=== PATIENT | male | born 1955 | race Caucasian/White ===

== ENCOUNTER 2016-04-12 12:44 | Inpatient (IN) | payer OTHER, MEDICARE ==
[~2016-04-12] VITALS: Ht 162.6 cm; Wt 65.8 kg
[~2016-04-12 12:44] MED LIST: ATORVASTATIN CA20 MG PO; CARBAMAZEP100 MG/5 M PO; CENTRUM 240 ML240 ML PO; CIPRO 500MG TA500 MG PO; CLONAZEPAM0.5 MG PO; DULCOLAX10 MG PR; EFFEXOR-XR75 MG PO; FOSAMAX 70MG70 MG PO; GEMFIBROZIL600 MG PO; GEODON 80 MG CA80 MG PO; HYDROCHLOROTHIA25 MG PO; KLONOPIN 1MG TAB1 MG PO; KLONOPIN0.5 MG PO; LACTAID3000 U PO; LOPID 600 MG T600 MG PO; LOPRESSOR 25MG25 MG PO; LUBRIDERM 480ML16 OZ TOP; MEGESTROL PO; MILK OF MAGNESI30 ML PO; MIRALAX17 GM PO; NEPRO PO; NORVASC 10MG10 MG PO; OMEPRAZOLE40 MG PO; VENLAFAXINE HYD75 MG PO; VITAMIN D31 LIQ PO
--- NOTE | 2016-04-12 13:31 | ED MVC/FALL/TRAUMA COMPLAINT ---
History of Present Illness General Chief Complaint: General Adult Stated Complaint: FALLS,LOW BP Source: old records Exam Limitations: clinical condition Vital Signs & Intake/Output Vital Signs & Intake/Output Vital Signs Date Time Temp Pulse Resp B/P Pulse O2 O2 Flow FiO2 Ox Delivery Rate 04/14 1624 98.7 82 16 155/77 100 Room Air 04/14 1421 83 130/72 04/14 1031 83 158/82 04/14 0805 97.5 83 20 158/82 100 Room Air 04/14 0039 97.5 67 20 120/60 98 Room Air ED Intake and Output 04/14 0000 04/13 1200 Intake Total 880 700 Output Total 1250 400 Balance -370 300 Intake, IV 400 600 Intake, Oral 480 100 Number 3 Bowel Movements Output, Urine 1250 400 Allergies Coded Allergies: lactose (Mild, VOMITING 05/29/15) phenytoin (UNKNOWN 05/29/15) Reconcile Medications Alendronate Sodium (Fosamax) 70 MG TABLET 1 TAB PO QFRI OSTEOPOROSIS ( Reported) in the morning, at least 30 minutes before the first food, beverage, or medication of the day Amlodipine (Norvasc 10MG) 10 MG TAB 1 TAB PO DAILY HYPERTENSION (Reported) HOLD FOR BP <90/60 Atorvastatin Calcium (Lipitor) 20 MG TAB 1 TAB PO AT BEDTIME CHOLESTEROL ( Reported) Bisacodyl (Dulcolax) 10 MG SUP 1 SUPP AL M W [place] CONSTIPATION (Reported) Carbamazepine 100 MG/5 ML KIMBERLY 20 ML PO BID BEHAVIORAL DISTURBANCES (Reported) CHOLECALCIFEROL (VITAMIN D3) (Vitamin D3) 1 LIQ LIQ 6.25 ML PO MONTHLY VITAMIN D DEFECIENCY (Reported) Clonazepam (Klonopin 1MG Tab) 1 MG TAB 1 TAB PO DAILY BEHAVIOR (Reported) Clonazepam (Klonopin) 0.5 MG TAB 3 TAB PO AT BEDTIME BEHAVIOR (Reported) Esomeprazole (Nexium) 40 MG CAPSULE.DR 1 CAP PO DAILY GI (Reported) Gemfibrozil (Lopid 600 MG Tab) 600 MG TAB 1 TAB PO BID CHOLESTEROL (Reported) Lactase (Lactaid) 3,000 U TAB 1 TAB PO DAILY PRN LACTOSE INTOLERANCE ( Reported) TO BE GIVEN WHEN THE PATIENT IS ABOUT TO HAVE DAIRY PRODUCTS Losartan/Hydrochlorothiazide (Hyzaar 50-12.5 Tablet) 50 MG-12.5 MG TABLET 1 TAB PO DAILY HEART (Reported) Magnesium Hydroxide (Milk Of Magnesia 30ML) 30 ML UDC 30 ML PO 3RD DAY CONSTIPATION (Reported) TO BE GIVEN ON THE 3 RD DAY OF NO BOWEL MOVEMENT Megestrol Acetate (Megace 40 MG Tab) 40 MG TAB 1 TAB PO DAILY SUPPLEMENT ( Reported) Metoprolol Tartrate (Lopressor) 25 MG TAB 1 TAB PO DAILY HYPERTENSION ( Reported) Mineral Oil (Lubriderm 480ML (16OZ)) 16 OZ LOT 1 DENISE TOP DAILY DRY SKIN ( Reported) Multivitamin and Minerals4 (Centrum 240 Ml) 240 ML LIQ 15 ML PO DAILY SUPPLEMENT (Reported) Nutritional Supplement (Nepro 1000 Ml) 1,000 ML LIQ 1 CAN PO TID SUPPLEMENT ( Reported) Polyethylene Glycol 3350 (Miralax) 17 GM PWD 17 GM PO DAILY CONSITPATION ( Reported) mix with water, juice, soda, coffee or tea Sodium Bicarbonate 650 MG TABLET 1 TAB PO BID SUPPLEMENT (Reported) Venlafaxine Hydrochloride (Effexor-XR) 75 MG CER 2 TAB PO BID BEHAVIOR ( Reported) Ziprasidone Hydrochloride (Geodon 80 MG Cap) 80 MG CAP 1 CAP PO AT BEDTIME BEHAVIOR (Reported) Triage Note: PER TOOL GRINDER OPERATOR SURFACE, PT STARTED ON NEW BP MED Mar AND HAS HAD FREQUENT FALLS IN THE PAST 24 HOURS, ANOTHER ONE 2 WEEKS AGO. TODAY HE FELL ON HIS FACE WHEN RUNNING TO BR. NO LOC. PT HAS DRIED BLOOD IN NARES, LAC TO BRIDGE OF NOSE AND ABOVE RIGHT EYEBROW. +NOSE BLEED Triage Nurses Notes Reviewed? yes Onset: Abrupt Duration: hour(s): (24) Timing: multiple episodes today Severity: severe Injuries/Fall Location: head, face Method of Injury: fall Loss of Consciousness: no loss of consciousness Modifying Factors: Worsens With: other (STANDING). 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 According to the care worker ever since he was put on a secondary hypertension med he has been dizzy and falling every time he stands. Today he fell and his face on the ground. There is an open wound above the right eyebrow and his nose is swollen. No loss of consciousness. She states when she checks blood pressure prior to the blood pressure medication systolic is 140 and then goes down to 120-100. Blood pressure is never drop below 100. Patient is verbal at times. In the room no complaints. Denies any pain. He is not in any distress. No blood thinners. His nose is obviously swollen. Past History Travel History Traveled to [place] past 21 day No Medical History Any Pertinent Medical History? 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 Hx Contributory? No Review of Systems Review of Systems Constitutional: Denies: fever. Eyes: Reports: no symptoms. Ears, Nose, Throat, Mouth: Reports: no symptoms. Respiratory: Denies: cough. Cardiovascular: Reports: no symptoms. Gastrointestinal/Abdominal: Denies: diarrhea, vomiting. Genitourinary: Reports: no symptoms. Musculoskeletal: Reports: no symptoms. Skin: Reports: no symptoms. Neurological/Psychological: Reports: no symptoms. All Other Systems: Reviewed and Negative Physical Exam Physical Exam General Appearance: well developed/nourished, alert, awake, anxious, mild distress Head: SWOLLEN/ECCHYMOTIC NOSE, RIGHT EYEBROW LACERATION Eyes: Bilateral: PERRL. Ears, Nose, Throat, Mouth: SWOLLEN NOSE/NASAL BRIDGE, ABRASION Neck: normal inspection, supple, full range of motion Respiratory: normal breath sounds, chest non-tender, no respiratory distress Cardiovascular: regular rate/rhythm Peripheral Pulses: 2+ radial (R), 2+ radial (L) Gastrointestinal: soft, non-tender Extremities: MOVING ALL 4 EXTREMITIES Neurologic/Psych: awake, alert, NO MOTOR/SENSORY DEFICITS Skin: intact, normal color, warm/dry Core Measures ACS in differential dx? No Severe Sepsis Present: No Septic Shock Present: No Progress Differential Diagnosis: C/T/L spine injury, ICH, FACIAL FX, ORTHOSTATIC, HEART BLOCK, MEDICATION REACTION Plan of Care: Orders Procedure Date/time Status Regular Diet 04/14 L Active SWALLOW EVALUATION 04/14 UNK Active Evaluate Swallowing 04/14 UNK Complete Discharge Patient 04/14 UNK Active Current Medications Sig/Rubens Start time Last Medication Dose Stop Time Status Admin Alendronate Sodium 70 MG Fr@0700 04/17 0700 AC (Fosamax) Bisacodyl 10 MG MoWeFr@1000 PRN 04/12 1830 AC (Dulcolax Supp) Acetaminophen 650 MG Q6P PRN 04/12 181 AC (Tylenol) Acetaminophen 1,000 MG Q6P PRN 04/12 1815 AC (Ofirmev) Oxycodone HCl 10 MG Q6P PRN 04/12 181 AC (Roxicodone) TETANUS UPDATED, IMAGING ORDERED. HEAD CT NEGATIVE, FACIAL CT REVEALS NASAL FRACTURES. PATIENT PROFOUNDLY ORTHOSTATIC, WILL ADMIT TO TELEMETRY. D/W DR HENRY WOODENWARE ASSEMBLER FOR DR CUNHA. (MDOESTO VÁZQUEZ,KAY) Diagnostic Imaging: Viewed by Me: CT Scan. Discussed w/RAD: CT Scan. Radiology Impression: PATIENT: BRUNO GARCIA PRESENT AGE: 61 PATIENT ACCOUNT NO: [id number] : 59 LOCATION: [facility] ORDERING PHYSICIAN: KAY SALVADOR MD SERVICE DATE: 04/12/16 EXAM TYPE: CAT - CT HEAD WO IV CONTRAST ADDENDUM: Ventriculomegaly is mildly disproportionate to the extent of sulcal widening, and again the possibility of normal pressure hydrocephalus should be excluded clinically. Addendum Signed by: MAYO ALVAREZ MD 04/12/16 8176 EXAMINATION: CT HEAD WITHOUT CONTRAST CLINICAL INFORMATION: Headache status-post fall; question intracranial hemorrhage. COMPARISON: Prior CT examinations, most recently 05/31/2015. TECHNIQUE: Contiguous axial imaging was performed from the skull base to vertex without intravenous administration of contrast. DLP: 2170.93 mGy-cm (head, cervical spine and facial bones) FINDINGS: There is no evidence of acute intracranial hemorrhage or territorial infarction. No abnormal mass effect or midline shift is seen. Baig to white matter differentiation is well preserved. No extra-axial fluid collections are identified. There is stable mild ventriculomegaly and mild generalized sulcal widening. The third and fourth ventricles remain patent. There is no abnormal attenuation within the brain parenchyma. The osseous structures and are normal. There is mild right frontal soft tissue swelling and subcutaneous gas. The mastoid air cells appear clear. There is very mild right ethmoid sinusitis. IMPRESSION: 1. No acute intracranial pathology. There is no significant interim change. 2. There is stable mild central and cortical atrophy. 3. There is a small right frontal scalp hematoma, without underlying fracture. 4. There is very mild right ethmoid sinusitis. DICTATED BY: MAYO ALVAREZ MD DATE/TIME DICTATED:04/12/161499 FLESHING MACHINE OPERATOR:LOKESH DATE/TIME TRANSCRIBED:1499 CONFIDENTIAL, DO NOT COPY WITHOUT APPROPRIATE AUTHORIZATION. < Electronically signed in Other Vendor System> SIGNED BY: MAYO ALVAREZ MD 04/12/16 1511 Initial ED EKG: RBBB Prior EKG: unchanged Rhythm Strip: normal sinus rhythm Comments: PATIENT: BRUNO GARCIA PRESENT AGE: 61 PATIENT ACCOUNT NO: [id number] : 59 LOCATION: [facility] ORDERING PHYSICIAN: KAY SALVADOR MD SERVICE DATE: 04/12/16 EXAM TYPE: CAT - CT CERV SPINE WO IV CONTRAST EXAMINATION: CT CERVICAL SPINE WITHOUT CONTRAST CLINICAL INFORMATION: Pain status-post fall. COMPARISON: CT cervical spine dated 05/31/2015. TECHNIQUE: Without the addition of intravenous contrast, multiple contiguous multidetector transaxial sections are obtained through the cervical spine. Sagittal and coronal reformatted images are submitted. DLP: 2170.93 mGy-cm (brain, cervical spine and facial bones). FINDINGS: Vertebral body heights and alignment are normal. There is mild posterior disc space narrowing at C2-C3. There is mild posterior disc space narrowing and spondylosis at C3-C4 and C4-C5. A 1-2 mm anterolisthesis is seen at C3-C4. There is moderate to marked disc space narrowing, vacuum disc phenomenon and spondylosis at C5-C6 and C6-C7. There is a gas-containing Schmorl's node of the C5 lower endplate. There is mild spondylosis at C7-T1. No acute fracture or spondylolisthesis is seen. The dens appears intact. The posterior elements are intact. There is no prevertebral soft tissue swelling. There is multi-level facet arthropathy. The lung apices appear clear. IMPRESSION: 1. No acute fracture or spondylolisthesis is seen. 2. There is multi-level cervical degenerative disc disease, spondylosis and facet arthropathy. DICTATED BY: MAYO ALVAREZ MD DATE/TIME DICTATED:04/12/161506 FLESHING MACHINE OPERATOR:LOKESH DATE/TIME TRANSCRIBED:04/12/161506 CONFIDENTIAL, DO NOT COPY WITHOUT APPROPRIATE AUTHORIZATION. <Electronically signed in Other Vendor System> SIGNED BY: MAYO ALVAREZ MD 04/12/16 1521 PATIENT: BRUNO GARCIA PRESENT AGE: 61 PATIENT ACCOUNT NO: [id number] : 59 LOCATION: [facility] ORDERING PHYSICIAN: KAY SALVADOR MD SERVICE DATE: 04/12/16 EXAM TYPE: CAT - CT MAXILLOFACIAL W/O CON EXAMINATION: CT MAXILLOFACIAL WITHOUT CONTRAST CLINICAL INFORMATION: Facial pain status-post fall. COMPARISON: None TECHNIQUE: Multidetector helical imaging was performed in the axial plane with generation of coronal and sagittal reformatted images. DLP: 2170.93 mGy-cm (head, cervical spine and facial bones) FINDINGS: FRONTAL SINUSES AND DRAINAGE PATHWAYS: Normal. MAXILLARY SINUSES AND DRAINAGE PATHWAYS: There is mild right and minimal left maxillary sinusitis. There is dependent organized fluid within the posteromedial right maxillary sinus, possibly clotted blood. The bilateral ostiomeatal units are patent, with the right attenuated. ETHMOID SINUSES: There is mild anterior right ethmoid sinusitis. The left ethmoid air cells appear relatively clear. SPHENOID SINUSES AND DRAINAGE PATHWAYS: Normal. ADDITIONAL RELEVANT FINDINGS: The lamina papyracea are intact. There are comminuted fractures of the bilateral nasal bones, with some apex medial angulation on the left. The nasal septum appears fractured with buckling and adjacent mucosal thickening. The carotid canals are normally covered by bone. The ethmoid roofs are symmetric. No periapical disease is seen. The TMJs and orbits are normal. The visualized mastoid air cells are clear. Limited evaluation demonstrates no acute intracranial findings. IMPRESSION: 1. Findings are consistent with fractures involving the bilateral nasal bones and the nasal septum. 2. There is right ethmoid and bilateral maxillary sinusitis. DICTATED BY: MAYO ALVAREZ MD DATE/TIME DICTATED:04/12/161522 FLESHING MACHINE OPERATOR:LOKESH DATE/TIME TRANSCRIBED:04/12/161522 CONFIDENTIAL, DO NOT COPY WITHOUT APPROPRIATE AUTHORIZATION. <Electronically signed in Other Vendor System> SIGNED BY: MAYO ALVAREZ MD 04/12/16 1536 Departure Departure Time of Disposition: 1616 Disposition: STILL A PATIENT Condition: Stable Clinical Impression Primary Impression: KRISTINA (acute kidney injury) Secondary Impressions: Fall, Forehead laceration, Orthostatic hypotension Referrals: GATITO FERNANDO MD (PCP/Family) Departure Forms: Customer Survey General Discharge Information Admission Note Spoke With: PASQUALE HENRY MD Documentation of Exam: Documentation of any treatments & extenuating circumstances including Concerns Regarding Discharge (functional status, medication knowledge or non-compliance, living conditions, etc.) that warrant an admission rather than observation: [ TELE MONITOR, HOLD HYZAAR, MONITOR I/O, PAIN CONTROL, MEDICATION ADJUSTMENT] Procedures Laceration/Wound Repair Laceration/Wound Repair: Wound Location: head Wound's Depth, Shape: linear Wound Length (cm): 2 Wound Repaired With: Dermabond
[2016-04-12] MEDS ORDERED: HYZAAR 50-12.51 EACH PO (14:04)
[2016-04-12] MEDS ORDERED: NEXIUM40 M1 PO (14:05)
[2016-04-12] MEDS ORDERED: SODIUM BICARBO650 M1 PO (14:07)
--- NOTE | 2016-04-12 15:11 | CT SCAN REPORT ---
EXAMINATION: CT HEAD WITHOUT CONTRAST CLINICAL INFORMATION: Headache status-post fall; question intracranial hemorrhage. COMPARISON: Prior CT examinations, most recently 05/31/2015. TECHNIQUE: Contiguous axial imaging was performed from the skull base to vertex without intravenous administration of contrast. DLP: 2170.93 mGy-cm (head, cervical spine and facial bones) FINDINGS: There is no evidence of acute intracranial hemorrhage or territorial infarction. No abnormal mass effect or midline shift is seen. Baig to white matter differentiation is well preserved. No extra-axial fluid collections are identified. There is stable mild ventriculomegaly and mild generalized sulcal widening. The third and fourth ventricles remain patent. There is no abnormal attenuation within the brain parenchyma. The osseous structures and are normal. There is mild right frontal soft tissue swelling and subcutaneous gas. The mastoid air cells appear clear. There is very mild right ethmoid sinusitis. IMPRESSION: 1. No acute intracranial pathology. There is no significant interim change. 2. There is stable mild central and cortical atrophy. 3. There is a small right frontal scalp hematoma, without underlying fracture. 4. There is very mild right ethmoid sinusitis.
--- NOTE | 2016-04-12 15:21 | CT SCAN REPORT ---
EXAMINATION: CT CERVICAL SPINE WITHOUT CONTRAST CLINICAL INFORMATION: Pain status-post fall. COMPARISON: CT cervical spine dated 05/31/2015. TECHNIQUE: Without the addition of intravenous contrast, multiple contiguous multidetector transaxial sections are obtained through the cervical spine. Sagittal and coronal reformatted images are submitted. DLP: 2170.93 mGy-cm (brain, cervical spine and facial bones). FINDINGS: Vertebral body heights and alignment are normal. There is mild posterior disc space narrowing at C2-C3. There is mild posterior disc space narrowing and spondylosis at C3-C4 and C4-C5. A 1-2 mm anterolisthesis is seen at C3-C4. There is moderate to marked disc space narrowing, vacuum disc phenomenon and spondylosis at C5-C6 and C6-C7. There is a gas-containing Schmorl's node of the C5 lower endplate. There is mild spondylosis at C7-T1. No acute fracture or spondylolisthesis is seen. The dens appears intact. The posterior elements are intact. There is no prevertebral soft tissue swelling. There is multi-level facet arthropathy. The lung apices appear clear. IMPRESSION: 1. No acute fracture or spondylolisthesis is seen. 2. There is multi-level cervical degenerative disc disease, spondylosis and facet arthropathy.
--- NOTE | 2016-04-12 15:36 | CT SCAN REPORT ---
EXAMINATION: CT MAXILLOFACIAL WITHOUT CONTRAST CLINICAL INFORMATION: Facial pain status-post fall. COMPARISON: None TECHNIQUE: Multidetector helical imaging was performed in the axial plane with generation of coronal and sagittal reformatted images. DLP: 2170.93 mGy-cm (head, cervical spine and facial bones) FINDINGS: FRONTAL SINUSES AND DRAINAGE PATHWAYS: Normal. MAXILLARY SINUSES AND DRAINAGE PATHWAYS: There is mild right and minimal left maxillary sinusitis. There is dependent organized fluid within the posteromedial right maxillary sinus, possibly clotted blood. The bilateral ostiomeatal units are patent, with the right attenuated. ETHMOID SINUSES: There is mild anterior right ethmoid sinusitis. The left ethmoid air cells appear relatively clear. SPHENOID SINUSES AND DRAINAGE PATHWAYS: Normal. ADDITIONAL RELEVANT FINDINGS: The lamina papyracea are intact. There are comminuted fractures of the bilateral nasal bones, with some apex medial angulation on the left. The nasal septum appears fractured with buckling and adjacent mucosal thickening. The carotid canals are normally covered by bone. The ethmoid roofs are symmetric. No periapical disease is seen. The TMJs and orbits are normal. The visualized mastoid air cells are clear. Limited evaluation demonstrates no acute intracranial findings. IMPRESSION: 1. Findings are consistent with fractures involving the bilateral nasal bones and the nasal septum. 2. There is right ethmoid and bilateral maxillary sinusitis.
[2016-04-12 16:10] LABS: ABSOLUTE BASOPHIL COUNT 0 /CUMM (0.0-0.2); ABSOLUTE EOSINOPHIL COUNT 0 /CUMM (0.0-0.7); ABSOLUTE GRANULOCYTE CT 7.1 /CUMM (1.4-6.5); ABSOLUTE MONOCYTE COUNT 0.6 /CUMM (0.10-0.60); BASOPHIL % 0.3 % (0.0-2.0); EOSINOPHIL % 0 % (0-5); GRANULOCYTE % 81.3 % (42.2-75.2); HEMATOCRIT 32.6 % (42-52); MEAN CORPUSCULAR HGB 31.2 PG (27.0-31.0); MEAN CORPUSCULAR HGB CONC 34.6 G/DL (33.0-37.0); MEAN CORPUSCULAR VOLUME 90.3 FL (80.0-94.0); MEAN PLATELET VOLUME 8.1 FL (7.4-10.4); PLATELET COUNT 234 /CUMM (130-400); RBC DISTRIBUTION WIDTH 12.5 % (11.5-14.5); RED BLOOD CELL CT 3.61 /CUMM (4.70-6.10); WHITE BLOOD CELL COUNT 8.8 /CUMM (4.8-10.8)
--- NOTE | 2016-04-12 16:57 | History & Physical ---
CAROLYN VÁZQUEZ,[facility] 04/12/16 7536: General Information and HPI MD Statement: I have seen and personally examined BRUNO GARCIA and documented this H&P. The patient is a 61 year old M who presented with a patient stated chief complaint of dizziness, status post fall Source of Information: healthcare economics consultant Exam Limitations: unable to give history History of Present Illness: This is a 60 year old male with a PMH of MR, HTN, HLD, Vitamin D defeciency, Passive Aggressive Personality disorder who presented to the ED from a prison for chief complaint of dizziness, status post fall. Patient unable to give history by his own, caregiver was at that site majority of the history was taken from her, as per healthcare economics consultant patient at baseline is minimally verbal, and of April Hyzaar was added to his current hypertensive med regimen, after which it was felt that he was getting dizzy, yesterday around 11 AM he had a fall in the bathroom, no injuries reported, following that he was at his baseline, took his pain meds and slept the next morning around 11 again he was dizzy and as per healthcare economics consultant while ambulating almost fell but she sees temp. After that he was resting in the living room and all of a sudden tried to get out of the couch and fell on the floor face first. Otherwise no complains of nausea, vomiting, diarrhea, changes in bowel movements , any travel history, any sick contacts, chest pain: Palpitatio,. He is a prison resident, at baseline is minimally conversant. Allergies/Medications Allergies: Coded Allergies: lactose (Mild, VOMITING 05/29/15) phenytoin (UNKNOWN 05/29/15) Compliance With Home Meds: GOOD Past History Travel History Traveled to [place] past 21 day No Medical History Neurological: MENTAL RETARDATION EENT: NONE Cardiovascular: hypertension, hyperlipidemia Respiratory: NONE Gastrointestinal: H-PYLORI Hepatic: NONE Renal: chronic kidney disease, UTI'S, STAGE 3 Musculoskeletal: NONE Psychiatric: AFFECTIVE DISORDER, PASSIVE/AGRESSIVE Endocrine: NONE Blood Disorders: NONE Cancer(s): NONE COREMAKER/Reproductive: NONE History of MRSA: No History of VRE: No History of CDIFF: No Influenza Vaccine: 12/06/14 Tetanus Vaccine: 04/12/16 Surgical History Surgical History: N Past Family/Social History Family History Relations & Conditions if any BROTHER (Prostate cancer Hypertension). Psychosocial History Where do you live? [place] Primary Language: Nepali Smoking Status: Never Smoked ETOH Use: denies use Illicit Drug Use: denies illicit drug use Functional Ability ADLs Independent: dressing, eating, toileting, bathing. Ambulation: independent IADLs Needs Assist: shopping, housework, finances, food prep, telephone, transportation, medication admin. Review of Systems Review of Systems Constitutional: Reports: see HPI. Exam & Diagnostic Data Last 24 Hrs of Vital Signs/I&O Vital Signs Date Time Temp Pulse Resp B/P Pulse O2 O2 Flow FiO2 Ox Delivery Rate 04/12 1836 97 04/12 1655 68 18 117/85 100 Room Air 04/12 1403 97.8 84 20 119/70 98 Room Air 04/12 1258 97.8 80 20 133/69 96 Room Air Intake & Output 04/12 1600 04/12 0800 04/12 0000 Intake Total Output Total Balance Patient 63.503 kg Weight Physical Exam General Appearance Alert, Oriented X3, Cooperative, No Acute Distress HEENT traumatic nasal bridge, clotted blood in nasal cavity. Cardiovascular Regular Rate, Normal S1, Normal S2 Lungs decreased breath sounds b/l Abdomen Normal Bowel Sounds, Soft, No Tenderness Extremities No Clubbing, No Cyanosis, b/l lle edema 1+ Last 24 Hrs of Labs/Luis: Laboratory Tests 04/12/16 1601: Anion Gap 13, Estimated GFR 25 L, BUN/Creatinine Ratio 28.1 H, Glucose 95, Calcium 9.4, Total Bilirubin 0.6, AST 34, ALT 32, Alkaline Phosphatase 153 H, Troponin I < 0.01, Total Protein 7.9, Albumin 4.5, Globulin 3.4, Albumin/ Globulin Ratio 1.3, CBC w Diff NO MAN DIFF REQ, RBC 3.61 L, MCV 90.3, MCH 31.2 H, RDW 12.5, MPV 8.1, Gran % 81.3 H, Lymphocytes % 11.2 L, Monocytes % 7.2, Eosinophils % 0, Basophils % 0.3, Absolute Granulocytes 7.1 H, Absolute Lymphocytes 1.0 L, Absolute Monocytes 0.6, Absolute Eosinophils 0, Absolute Basophils 0, PUBS MCHC 34.6 Assessment/Plan Assessment: This is a 60 year old male with a PMH of MR, HTN, HLD, Vitamin D defeciency, Passive Aggressive Personality disorder who presented to the ED from a prison Vitals upon presentation temperature 97.8, pulse 80, respiratory rate 20, blood pressure 133/69, satting and mid 90s in room air. Labs upon presentation H&H 11.3 and 32.6, WBC 8.8, creatinine 2[address]: Findings are consistent with fractures involving the bilateral nasal bones and the nasal septum and right ethmoid and bilateral maxillary sinusitis. Head CT: No acute intracranial pathology. Patient to be admitted to [facility] floor and monitored for following conditions: Dizziness/ s/p fall s/p fracture bilateral nasal bones and the nasal septum: R/O ACS, will trend trop and ekg Continous cardiac monitoring for any cardiac arrythmias Oxyge supplementation as needed to keep O2 saturation above 90% Dizziness likely secondary to hypotension, will get orthostatic vitals Will get ENT consult in a.m. Acute on chronic kidney injury: Creatinine 2.6, baseline creatinine 1.8, likely secondary to dehydration Will give IV fluids normal saline at 75 mg per hour Will monitor a.m. labs History of hypertension: Patient orthostatic vitals positive continue with currently hold off antihypertensive medication will reevaluate in a.m. and restart as appropriate. History of hyperlipidemia: Will continue home dose of atorvastatin 20 mg at bedtime History of vitamin D deficiency: Will continue home dose of multivitamins History of GERD: Will continue home dose of Prilosec 40 mg daily History of MR/psychiatric problems: Will continue home dose of Tegretol 2000 Lindsey twice a day and venlafaxine 150 mg daily History of constipation: Will continue home dose of bowel regimen Diet DVT prophylaxis Patient is As Ranked By This Provider Problem List: 1. Constipation 2. Orthostatic hypotension 3. Forehead laceration 4. Fall Core Measures/Miscellaneous Acute Coronary Syndrome ACS Diagnosis: No Cerebrovascular Accident CVA/TIA Diagnosis: No Congestive Heart Failure CHF Diagnosis: No Venous Thromboembolism VTE Risk Factors: Acute medical illness, Age > 40 VTE Prophylaxis Ordered Inpt: Pharm- Heparin No Mech VTE prophylaxis d/t: No contraindications No VTE Pharm Prophylaxis d/t: No contraindications VTE Diagnosis: No VTE Type: NONE VTE Confirmed by (Test): NONE Severe Sepsis Severe Sepsis Present: No Septic Shock Septic Shock Present: No Miscellaneous Documentation Attending Case Discussed With: Primary Care Physician: GATITO FERNANDO MD Patient sees these Specialists . Level of Patient Care: Telemetry VIRGINIA MARRERO MD 04/12/167: General Information and HPI Allergies/Medications Home Med list Alendronate Sodium (Fosamax) 70 MG TABLET 1 TAB PO QFRI OSTEOPOROSIS ( Reported) in the morning, at least 30 minutes before the first food, beverage, or medication of the day Amlodipine (Norvasc 10MG) 10 MG TAB 1 TAB PO DAILY HYPERTENSION (Reported) HOLD FOR BP <90/60 Atorvastatin Calcium (Lipitor) 20 MG TAB 1 TAB PO AT BEDTIME CHOLESTEROL ( Reported) Bisacodyl (Dulcolax) 10 MG SUP 1 SUPP LA M W F CAMERON CONSTIPATION (Reported) Carbamazepine 100 MG/5 ML KIMBERLY 20 ML PO BID BEHAVIORAL DISTURBANCES (Reported) CHOLECALCIFEROL (VITAMIN D3) (Vitamin D3) 1 LIQ LIQ 6.25 ML PO MONTHLY VITAMIN D DEFECIENCY (Reported) Clonazepam (Klonopin 1MG Tab) 1 MG TAB 1 TAB PO DAILY BEHAVIOR (Reported) Clonazepam (Klonopin) 0.5 MG TAB 3 TAB PO AT BEDTIME BEHAVIOR (Reported) Esomeprazole (Nexium) 40 MG CAPSULE.DR 1 CAP PO DAILY GI (Reported) Gemfibrozil (Lopid 600 MG Tab) 600 MG TAB 1 TAB PO BID CHOLESTEROL (Reported) Lactase (Lactaid) 3,000 U TAB 1 TAB PO DAILY PRN LACTOSE INTOLERANCE ( Reported) TO BE GIVEN WHEN THE PATIENT IS ABOUT TO HAVE DAIRY PRODUCTS Losartan/Hydrochlorothiazide (Hyzaar 50-12.5 Tablet) 50 MG-12.5 MG TABLET 1 TAB PO DAILY HEART (Reported) Magnesium Hydroxide (Milk Of Magnesia 30ML) 30 ML UDC 30 ML PO 3RD DAY CONSTIPATION (Reported) TO BE GIVEN ON THE 3 RD DAY OF NO BOWEL MOVEMENT Megestrol Acetate (Megace 40 MG Tab) 40 MG TAB 1 TAB PO DAILY SUPPLEMENT ( Reported) Metoprolol Tartrate (Lopressor) 25 MG TAB 1 TAB PO DAILY HYPERTENSION ( Reported) Mineral Oil (Lubriderm 480ML (16OZ)) 16 OZ LOT 1 DENISE TOP DAILY DRY SKIN ( Reported) Multivitamin and Minerals4 (Centrum 240 Ml) 240 ML LIQ 15 ML PO DAILY SUPPLEMENT (Reported) Nutritional Supplement (Nepro 1000 Ml) 1,000 ML LIQ 1 CAN PO TID SUPPLEMENT ( Reported) Polyethylene Glycol 3350 (Miralax) 17 GM PWD 17 GM PO DAILY CONSITPATION ( Reported) mix with water, juice, soda, coffee or tea Sodium Bicarbonate 650 MG TABLET 1 TAB PO BID SUPPLEMENT (Reported) Venlafaxine Hydrochloride (Effexor-XR) 75 MG CER 2 TAB PO BID BEHAVIOR ( Reported) Ziprasidone Hydrochloride (Geodon 80 MG Cap) 80 MG CAP 1 CAP PO AT BEDTIME BEHAVIOR (Reported) Resident Review Statement Resident Statement: examined this patient, discussed with internal revenue agent, agreed with internal revenue agent, reviewed EMR data (avail), reviewed images, amended to note Other Findings: 58 years old resident of a prison with significant past medical history of mental retardation, hypertension and hyperlipidemia who was brought in by ambulance today after experiencing a witnessed the fall. according to the caregiver, Kimberley, was at bedside, the patient has had 3 falls in the past 5 hours , the last one resulted in injury to his nasal bridge with blood coming out. According to caregiver the patient was started on Hyzaar, medication chemistry shows it was started on March 27. Since the medication the patient has been experiencing frequent dizzy spells and multiple falls. He is also been dehydrated. No loss of consciousness, the patient is nonverbal and unable to provide any history therefore is difficult to assess for chest pain, palpitations, changes in his vision, headaches or nausea vomiting or diarrhea. There are no objective symptoms or signs as per the caregiver. no loss of consciousness, no seizure-like activity. Vitals on admission include temperature 97.8, pulse rate of 84, respiratory rate of 20, blood pressure of 119/70 and saturation 98% on room air Orthostatics then in the ED show: BP lying 117/73, pulse 87, BP sitting 90/59, pulse 76, BP standing 75/51, pulse 59 On exam the patient has dried blood on his nasal bridge and nares I will provide any history except saying good, when asked how he is doing Not maintaining eye contact, slouched posture Grunting nasal sounds are heard on auscultation of the chest On auscultation of the heart PVCs heard, and felt upon pulse palpation No leg edema, no cyanosis. Peripheral pulses intact Pertinent lab work shows an H&H of 11.3 and 32.6 which is at baseline Sodium 133, potassium 3.6, chloride 90, A 31, and 13, BUN 73/creatinine 2.6, baseline around 1.8-1.9 First troponin negative at 0.01, EKG with no ST-T wave changes, NSR [address] scan shows: 1. Findings are consistent with fractures involving the bilateral nasal bones and the nasal septum. 2. There is right ethmoid and bilateral maxillary sinusitis. CT head shows: stable mild central and cortical atrophy, small right frontal scalp hematoma without underlying fracture and very mild right ethmoid sinusitis CT cervical spine shows no acute fracture but there is multilevel cervical degenerative disc disease Assessment: 1. Orthostatic hypotension likely secondary to diuretics 2. Presyncope/fall, secondary to orthostatic hypotension 3. Acute on chronic kidney disease stage III 4. Nasal bridge fracture secondary to fall 5. Scalp hematoma 2/2 fall 6. Hypertension 7. Mental retardation 8. Strict behavioral and mood disturbances 8. Hyperlipidemia Plan: admit to telemetry Vitals every shift 1. Orthostatic hypotension likely secondary to diuretics: - The patient presented with multiple falls especially since Hyzaar was started on March. orthostatic positive - We will hold off on antihypertensives especially Hyzaar for now - Will start normal saline at 75 mL per hour and monitor blood pressure and orthostatics 2. Presyncope/fall, secondary to orthostatic hypotension: - Patient has been having presyncope, multiple falls, dizziness likely secondary to orthostatic hypotension secondary to high doses of antihypertensives and diuretics - Chest to rule out any cardiac causes will monitor on telemetry - First were negative, will check 2 more sets of troponin at 10 PM and 6 AM - We will also check EKG at 10 PM and 6 AM - We'll hold off on antihypertensives and continue to monitor blood pressure 3. Nasal bridge fracture: - No active bleeding, dry blood and ears - In consultation in a.m. 4. Scalp Hematoma on CT scan: - No evidence of external bleeding, no fracture - We'll monitor 5. Acute on chronic kidney disease stage III: - Baseline creatinine between 1.8 1.9, has been as high as 2.8 in the past as well. - Cr today 2.6 - Started normal saline and continue to monitor BUN and creatinine 6. Hypertension: - Patient has history of hypertension, BP 117/85 on admission - For now will hold off on Hyzaar, metoprolol and amlodipine - Please monitor blood pressure and start incrementally if need be - We'll hold off on the diuretic 7. Mental retardation/behavioral and mood disturbances: - We'll continue with home meds that include Effexor, Tegretol, Klonopin, - He also takes Geodon, for behavioral disturbances which we don't have at her pharmacy will hold off for now 8. We'll continue with multivitamins, Megace, betamethasone, Fosamax, vitamin D is monthly therefore will not continue while he is in the hospital, will continue with Nexium and Lipitor 9. Heart healthy diet: As per the W 10 the patient is supposed to be on low-fat, low-cholesterol, no added salt, lactose-free, no dairy products, all needs to be ground, onto the foot to be soft, and thickened liquid, nectar consistency C of liquid diet 10. Pain pathway ordered 11. Subcutaneous heparin for DVT prophylaxis 12. Full CODE STATUS
[2016-04-12] MEDS ORDERED: FOSAMAX70 M1 PO (19:18)
[2016-04-12 19:46] VITALS: BP 122/70
--- NOTE | 2016-04-13 07:29 | PN- Housestaff ---
See Addendum Subjective Follow-up For: Dizziness/ s/p fall s/p fracture bilateral nasal bones and the nasal septum Acute on chronic kidney injury Subjective: Patient seen and examined this morning. He is lying comfortably in bed in no acute distress, minimally conversant at baseline. Afebrile, repeat orthostatic vitals in the morning positive. Review of Systems Constitutional: Reports: see HPI. Objective Last 24 Hrs of Vital Signs/I&O Vital Signs Date Time Temp Pulse Resp B/P Pulse O2 O2 Flow FiO2 Ox Delivery Rate 04/13 1020 110/70 / 0834 98.2 80 20 150/70 99 Room Air / 1946 98.1 74 20 122/70 100 Room Air / 1836 97 02/ 1655 68 18 117/85 100 Room Air / 1403 97.8 84 20 119/70 98 Room Air / 1258 97.8 80 20 133/69 96 Room Air Intake & Output 04/13 1600 04/13 0800 04/13 0000 Intake Total 700 1100 Output Total 400 350 Balance 300 750 Intake, IV 600 1000 Intake, Oral 100 100 Output, Urine 400 350 Patient 65.771 kg Weight Physical Exam General Appearance: Alert, Oriented X3, Cooperative, No Acute Distress HEENT: traumatic nasal bridge, clotted blood around the nostril Cardiovascular: Regular Rate, Normal S1, Normal S2, No Murmurs Lungs: decreased breath sounds bilaterally Abdomen: Normal Bowel Sounds, Soft, No Tenderness Extremities: No Clubbing, No Cyanosis, No Edema Current Medications: Current Medications Sig/Rubens Start time Last Medication Dose Route Stop Time Status Admin Acetaminophen 650 MG Q6P PRN 04/12 1814 AC PO Acetaminophen 1,000 MG Q6P PRN 04/12 181 AC IV Alendronate Sodium 70 MG Fr@0700 04/17 0700 AC PO Atorvastatin Calcium 20 MG AT BEDTIME 04/12 2199 AC 04/12 PO 2234 Bisacodyl 10 MG MoWeFr@1000 PRN 04/12 183 AC AZ Carbamazepine 400 MG BID 04/12 2199 AC 04/13 PO 1022 Clonazepam 1 MG DAILY 04/13 1000 AC 04/13 PO 04/20 0959 1022 Clonazepam 1.5 MG AT BEDTIME 04/12 2199 AC 04/12 PO 04/19 2158 2235 Gemfibrozil 600 MG BID 04/12 2200 AC 04/13 PO 1010 Heparin Sodium 5,000 UNIT Q8 04/12 2200 AC 04/13 (Porcine) SC 0600 Magnesium Hydroxide 30 ML Q72H 04/12 1830 AC 04/12 PO 2235 Megestrol Acetate 40 MG DAILY 04/13 1000 AC 04/13 PO 1010 Metoprolol Tartrate 25 MG DAILY 04/13 1000 AC 04/13 PO 1020 Multivitamins 1 TAB DAILY 04/13 1000 AC 04/13 PO 1011 Omeprazole 40 MG DAILY AC 04/13 0700 AC 04/13 PO 0635 Oxycodone HCl 10 MG Q6P PRN 04/12 1815 AC PO Patient Medication 1 UNIT ONE NR 04/12 1914 [facility] Teaching ED 04/12 193 Patient Medication 1 UNIT ONE NR 04/12 1914 [facility] ED 04/12 193 Polyethylene Glycol 17 GM DAILY 04/13 1000 AC 04/13 PO 1012 Sodium Bicarbonate 650 MG BID 04/12 2200 AC 04/13 PO 1011 Sodium Chloride 1,000 ML Q13H 04/12 181 AC 04/12 IV 1836 Sodium Chloride 500 ML BOLUS ONE 04/12 1600 UT 04/12 IV 04/12 1659 1607 Tetanus/Diphtheria 0 .STK-MED ONE 04/12 1336 UT Toxoids Adsorbed IM Tetanus/Diphtheria 0.5 ML ONCE ONE 04/12 1330 UT 04/12 Toxoids Adsorbed IM 04/12 1331 1338 Venlafaxine HCl 150 MG 0800 04/13 0800 AC 04/13 PO 1010 Last 24 Hrs of Lab/Luis Results Last 24 Hrs of Labs/Mics: Laboratory Tests 04/13/16 0705: Anion Gap 11, Estimated GFR 31 L, BUN/Creatinine Ratio 29.1 H, Troponin I < 0.01, CBC w Diff NO MAN DIFF REQ, RBC 3.26 L, MCV 90.7, MCH 31.4 H, RDW 12.6, MPV 9.4, Gran % 71.4, Lymphocytes % 17.9 L, Monocytes % 10.2 H, Eosinophils % 0.2, Basophils % 0.3, Absolute Granulocytes 3.2, Absolute Lymphocytes 0.8 L, Absolute Monocytes 0.5, Absolute Eosinophils 0, Absolute Basophils 0, PUBS MCHC 34.6 04/12/16 2210: Troponin I < 0.01 04/12/16 1601: Anion Gap 13, Estimated GFR 25 L, BUN/Creatinine Ratio 28.1 H, Glucose 95, Calcium 9.4, Total Bilirubin 0.6, AST 34, ALT 32, Alkaline Phosphatase 153 H, Troponin I < 0.01, Total Protein 7.9, Albumin 4.5, Globulin 3.4, Albumin/ Globulin Ratio 1.3, CBC w Diff NO MAN DIFF REQ, RBC 3.61 L, MCV 90.3, MCH 31.2 H, RDW 12.5, MPV 8.1, Gran % 81.3 H, Lymphocytes % 11.2 L, Monocytes % 7.2, Eosinophils % 0, Basophils % 0.3, Absolute Granulocytes 7.1 H, Absolute Lymphocytes 1.0 L, Absolute Monocytes 0.6, Absolute Eosinophils 0, Absolute Basophils 0, PUBS MCHC 34.6 Assessment/Plan Assessment: This is a 60 year old male with a PMH of MR, HTN, HLD, Vitamin D defeciency, Passive Aggressive Personality disorder who presented [facility] the ED from a [facility] for dizziness status post fall Vitals upon presentation temperature 97.8, pulse 80, respiratory rate 20, blood pressure 133/69, satting and mid 90s in room air. Labs upon presentation H&H 11.3 and 32.6, WBC 8.8, creatinine 2.[address]: Findings are consistent with fractures involving the bilateral nasal bones and the nasal septum and right ethmoid and bilateral maxillary sinusitis. Head CT: No acute intracranial pathology. Patient to be admitted to [facility] floor and monitored for following conditions: Dizziness/ s/p fall s/p fracture bilateral nasal bones and the nasal septum: R/O ACS, will trend trop and ekg Continous cardiac monitoring for any cardiac arrythmias Oxyge supplementation as needed to keep O2 saturation above 90% Dizziness likely secondary to hypotension, positive orthostatic vitals Nasal septum fracture, ENT consult placed, will follow-up recommendations. Acute on chronic kidney injury: Creatinine 2.6>>2.2, baseline creatinine 1.8, likely secondary to dehydration Will give IV fluids normal saline at 75 mg per hour History of hypertension: Patient orthostatic vitals positive continue with currently hold off antihypertensive medication will reevaluate in a.m. and restart as appropriate. History of hyperlipidemia: Will continue home dose of atorvastatin 20 mg at bedtime History of vitamin D deficiency: Will continue home dose of multivitamins History of GERD: Will continue home dose of Prilosec 40 mg daily History of MR/psychiatric problems: Will continue home dose of Tegretol 2000 Milligram twice a day and venlafaxine 150 mg daily History of constipation: Will continue home dose of bowel regimen Diet DVT prophylaxis Patient is subcutaneous heparin Problem List: 1. Orthostatic hypotension 2. Forehead laceration 3. Fall Pain Ratin Pain Location: None Pain Goal: Remain pain free Pain Plan: Tylenol for mild pain Roxicodone for moderate pain Tomorrow's Labs & Rationales: BEP in setting of KRISTINA on chronic kidney disease.
[2016-04-13 08:02] LABS: ABSOLUTE BASOPHIL COUNT 0 /CUMM (0.0-0.2); ABSOLUTE EOSINOPHIL COUNT 0 /CUMM (0.0-0.7); ABSOLUTE GRANULOCYTE CT 3.2 /CUMM (1.4-6.5); ABSOLUTE LYMPH COUNT 0.8 /CUMM (1.2-3.4); ABSOLUTE MONOCYTE COUNT 0.5 /CUMM (0.10-0.60); BASOPHIL % 0.3 % (0.0-2.0); EOSINOPHIL % 0.2 % (0-5); GRANULOCYTE % 71.4 % (42.2-75.2); HEMATOCRIT 29.5 % (42-52); MEAN CORPUSCULAR HGB 31.4 PG (27.0-31.0); MEAN CORPUSCULAR HGB CONC 34.6 G/DL (33.0-37.0); MEAN CORPUSCULAR VOLUME 90.7 FL (80.0-94.0); MEAN PLATELET VOLUME 9.4 FL (7.4-10.4); PLATELET COUNT 168 /CUMM (130-400); RBC DISTRIBUTION WIDTH 12.6 % (11.5-14.5); RED BLOOD CELL CT 3.26 /CUMM (4.70-6.10); WHITE BLOOD CELL COUNT 4.5 /CUMM (4.8-10.8)
[2016-04-13 08:34] VITALS: BP 150/70
--- NOTE | 2016-04-13 10:31 | PN- Att Addend ---
Attending Addendum Attending Brief Note Events over the weekend noted, she was admitted after a fall, had fractured nose. His face is bruised around his nose was a little orthostatic, monitoring blood pressures having ENT follow-up. If stable we'll start disposition plans later on to return to the assisted Intake & Output 04/13 1600 04/13 0800 04/13 0000 / 1600 04/12 0800 04/12 0000 Intake Total 700 1100 Output Total 400 350 Balance 300 750 Intake, IV 600 1000 Intake, Oral 100 100 Output, Urine 400 350 Patient 145 lb 140 lb Weight Current Medications Sig/Rubens Start time Last Medication Dose Route Stop Time Status Admin Acetaminophen 650 MG Q6P PRN 04/12 1814 AC PO Acetaminophen 1,000 MG Q6P PRN 04/12 181 AC IV Alendronate Sodium 70 MG Fr@0700 04/17 0700 AC PO Atorvastatin Calcium 20 MG AT BEDTIME 04/12 2200 AC 04/12 PO 2234 Bisacodyl 10 MG MoWeFr@1000 PRN 04/12 1830 AC WI Carbamazepine 400 MG BID 04/12 220 AC 04/12 PO 2234 Clonazepam 1 MG DAILY 04/13 1000 AC PO 04/20 0959 Clonazepam 1.5 MG AT BEDTIME 04/12 2200 AC 04/12 PO 04/19 2159 2235 Gemfibrozil 600 MG BID 04/12 220 AC 04/12 PO 2234 Heparin Sodium 5,000 UNIT Q8 04/12 2200 AC 04/13 (Porcine) SC 0600 Magnesium Hydroxide 30 ML Q72H 04/12 1830 AC 04/12 PO 2235 Megestrol Acetate 40 MG DAILY 04/13 1000 AC PO Metoprolol Tartrate 25 MG DAILY 04/13 1000 AC PO Multivitamins 1 TAB DAILY 04/13 1000 AC PO Omeprazole 40 MG DAILY AC 04/13 0700 AC 04/13 PO 0635 Oxycodone HCl 10 MG Q6P PRN 04/12 181 AC PO Patient Medication 1 UNIT ONE NR 04/12 1914 [place] Teaching ED 04/12 1929 Patient Medication 1 UNIT ONE NR 04/12 1914 [place] Teaching ED 04/12 1930 Polyethylene Glycol 17 GM DAILY 04/13 1000 AC PO Sodium Bicarbonate 650 MG BID 04/12 2200 AC 04/12 PO 2233 Sodium Chloride 1,000 ML Q13H 04/12 1815 AC 04/12 IV 1836 Sodium Chloride 500 ML BOLUS ONE 04/12 1600 DC 04/12 IV 04/12 1659 1607 Tetanus/Diphtheria 0 .STK-MED ONE 04/12 1336 DC Toxoids Adsorbed IM Tetanus/Diphtheria 0.5 ML ONCE ONE 04/12 1330 DC 04/12 Toxoids Adsorbed IM 04/12 1331 1338 Venlafaxine HCl 150 MG 0800 04/13 0800 AC PO Laboratory Tests 04/13/16 0705: Anion Gap 11, Estimated GFR 31 L, BUN/Creatinine Ratio 29.1 H, Troponin I < 0.01, CBC w Diff NO MAN DIFF REQ, RBC 3.26 L, MCV 90.7, MCH 31.4 H, RDW 12.6, MPV 9.4, Gran % 71.4, Lymphocytes % 17.9 L, Monocytes % 10.2 H, Eosinophils % 0.2, Basophils % 0.3, Absolute Granulocytes 3.2, Absolute Lymphocytes 0.8 L, Absolute Monocytes 0.5, Absolute Eosinophils 0, Absolute Basophils 0, PUBS MCHC 34.6 04/12/16 2210: Troponin I < 0.01 04/12/16 1601: Anion Gap 13, Estimated GFR 25 L, BUN/Creatinine Ratio 28.1 H, Glucose 95, Calcium 9.4, Total Bilirubin 0.6, AST 34, ALT 32, Alkaline Phosphatase 153 H, Troponin I < 0.01, Total Protein 7.9, Albumin 4.5, Globulin 3.4, Albumin/ Globulin Ratio 1.3, CBC w Diff NO MAN DIFF REQ, RBC 3.61 L, MCV 90.3, MCH 31.2 H, RDW 12.5, MPV 8.1, Gran % 81.3 H, Lymphocytes % 11.2 L, Monocytes % 7.2, Eosinophils % 0, Basophils % 0.3, Absolute Granulocytes 7.1 H, Absolute Lymphocytes 1.0 L, Absolute Monocytes 0.6, Absolute Eosinophils 0, Absolute Basophils 0, PUBS MCHC 34.6
--- NOTE | 2016-04-13 11:00 | Patient Discharge Instructions ---
Discharge Instructions General Discharge Information You were seen/treated for: 1. Orthostatic hypotension likely secondary to diuretics 2. Presyncope/fall, secondary to orthostatic hypotension 3. Acute on chronic kidney disease stage III 4. Nasal bridge fracture secondary to fall 5. Scalp hematoma 2/2 fall 6. Hypertension 7. Mental retardation 8. Strict behavioral and mood disturbances 8. Hyperlipidemia Special Instructions: Please schedule a follow-up appointment with primary physician in one week. Hyzaar and amlodipine has been held upon admission secondary to low blood pressure, discuss with your primary care physician went to restarted safely. Please follow up with as an out paient for kidney disease. YOU SHOULD SEE ENT specialist ANGELLA GARZA MD IN HIS [facility] THIS WEDNESDAY MORNING ([phone]) OR [facility] Wednesday ([phone]) TO REASSESS NASAL CONTOUR AND CONDITION AFTER SWELLING HAS RESOLVED. WILL DETERMINE IF YOU MAY NEED CLOSED REDUCTION NASAL FRACTURE NEXT WEEK IN THE OR. Diet Recommended Diet: Low Fat, no added salt, lactose-free, round, thickened liquids , nectar consistency Activity Activity Self Limited: Yes Acute Coronary Syndrome Inclusion Criteria At DC or during hospital stay patient has or had the following: ACS DIAGNOSIS No Discharge Core Measures Meds if any: Prescribed or Continued at Discharge Meds if any: NOT Prescribed or Continued at Discharge Congestive Heart Failure Inclusion Criteria At DC or during hospital stay patient has or had the following: CHF DIAGNOSIS No Discharge Core Measures Meds if any: Prescribed or Continued at Discharge Meds if any: NOT Prescribed or Continued at Discharge Cerebrovascular accident Inclusion Criteria At DC or during hospital stay patient has or had the following: CVA/TIA Diagnosis No Discharge Core Measures Meds if any: Prescribed or Continued at Discharge Meds if any: NOT Prescribed or Continued at Discharge Venous thromboembolism Inclusion Criteria VTE Diagnosis No VTE Type NONE VTE Confirmed by (Test) NONE Discharge Core Measures - Per Current guidelines, there needs to be overlap - treatment for the first 5 days of Warfarin therapy. - If discharged on Warfarin prior to 5 days of - overlap therapy, the patient will need to be - assessed for post discharge needs including - *Post discharge parental anticoagulation - *Warfarin and/or parental anticoagulation education - *Follow up date to check INR post discharge At least 5 days overlap therapy as Inpatient No Meds if any: Prescribed or Continued at Discharge Note: Overlap Therapy is Warfarin and Anticoagulant Meds if any: NOT Prescribed or Continued at Discharge
--- NOTE | 2016-04-13 13:01 | Cons- Ear,Nose&Throat ---
General Information and HPI Consulting Request Date of Consult: 04/13/16 Requested By: GATITO FERNANDO MD Reason for Consult: NASAL FRACTURE Source of Information: patient, old records Exam Limitations: unable to give history History of Present Illness: 60 YO MALE WITH MR, HTN, VIT D DEFICIENCY, PASSIVE AGGRESSIVE PERSONALITY DISORDER, RESIDENT OF THE [facility] WHO FELL, AND SUSTAINED NASAL FRACTURE. THIS IS SEEN ON CT DONE YESTERDAY. HE IS NOT VERY COMMUNICATIVE Allergies/Medications Allergies: Coded Allergies: lactose (Mild, VOMITING 05/29/15) phenytoin (UNKNOWN 05/29/15) Home Med List: Alendronate Sodium (Fosamax) 70 MG TABLET 1 TAB PO QFRI OSTEOPOROSIS ( Reported) in the morning, at least 30 minutes before the first food, beverage, or medication of the day Amlodipine (Norvasc 10MG) 10 MG TAB 1 TAB PO DAILY HYPERTENSION (Reported) HOLD FOR BP <90/60 Atorvastatin Calcium (Lipitor) 20 MG TAB 1 TAB PO AT BEDTIME CHOLESTEROL ( Reported) Bisacodyl (Dulcolax) 10 MG SUP 1 SUPP MD CAMERON CONSTIPATION (Reported) Carbamazepine 100 MG/5 ML KIMBERLY 20 ML PO BID BEHAVIORAL DISTURBANCES (Reported) CHOLECALCIFEROL (VITAMIN D3) (Vitamin D3) 1 LIQ LIQ 6.25 ML PO MONTHLY VITAMIN D DEFECIENCY (Reported) Clonazepam (Klonopin 1MG Tab) 1 MG TAB 1 TAB PO DAILY BEHAVIOR (Reported) Clonazepam (Klonopin) 0.5 MG TAB 3 TAB PO AT BEDTIME BEHAVIOR (Reported) Esomeprazole (Nexium) 40 MG CAPSULE.DR 1 CAP PO DAILY GI (Reported) Gemfibrozil (Lopid 600 MG Tab) 600 MG TAB 1 TAB PO BID CHOLESTEROL (Reported) Lactase (Lactaid) 3,000 U TAB 1 TAB PO DAILY PRN LACTOSE INTOLERANCE ( Reported) TO BE GIVEN WHEN THE PATIENT IS ABOUT TO HAVE DAIRY PRODUCTS Losartan/Hydrochlorothiazide (Hyzaar 50-12.5 Tablet) 50 MG-12.5 MG TABLET 1 TAB PO DAILY HEART (Reported) Magnesium Hydroxide (Milk Of Magnesia 30ML) 30 ML UDC 30 ML PO 3RD DAY CONSTIPATION (Reported) TO BE GIVEN ON THE 3 RD DAY OF NO BOWEL MOVEMENT Megestrol Acetate (Megace 40 MG Tab) 40 MG TAB 1 TAB PO DAILY SUPPLEMENT ( Reported) Metoprolol Tartrate (Lopressor) 25 MG TAB 1 TAB PO DAILY HYPERTENSION ( Reported) Mineral Oil (Lubriderm 480ML (16OZ)) 16 OZ LOT 1 DENISE TOP DAILY DRY SKIN ( Reported) Multivitamin and Minerals4 (Centrum 240 Ml) 240 ML LIQ 15 ML PO DAILY SUPPLEMENT (Reported) Nutritional Supplement (Nepro 1000 Ml) 1,000 ML LIQ 1 CAN PO TID SUPPLEMENT ( Reported) Polyethylene Glycol 3350 (Miralax) 17 GM PWD 17 GM PO DAILY CONSITPATION ( Reported) mix with water, juice, soda, coffee or tea Sodium Bicarbonate 650 MG TABLET 1 TAB PO BID SUPPLEMENT (Reported) Venlafaxine Hydrochloride (Effexor-XR) 75 MG CER 2 TAB PO BID BEHAVIOR ( Reported) Ziprasidone Hydrochloride (Geodon 80 MG Cap) 80 MG CAP 1 CAP PO AT BEDTIME BEHAVIOR (Reported) Past History Medical History Neurological: MENTAL RETARDATION EENT: NONE Cardiovascular: hypertension, hyperlipidemia Respiratory: NONE Gastrointestinal: H-PYLORI Hepatic: NONE Renal: chronic kidney disease, UTI'S, STAGE 3 Musculoskeletal: NONE Psychiatric: AFFECTIVE DISORDER, PASSIVE/AGRESSIVE Endocrine: NONE Blood Disorders: NONE Cancer(s): 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 Psychosocial History Where Do You Live? Nursing Home Primary Language: Vietnamese Smoking Status: Never Smoked ETOH Use: denies use Illicit Drug Use: denies illicit drug use Functional Ability ADLs Independent: dressing, eating, toileting, bathing. Ambulation: independent IADLs Needs Assist: shopping, housework, finances, food prep, telephone, transportation, medication admin. Review of Systems Review of Systems: NONCONTRIBUTORY Exam & Diagnostic Data Vital Signs and I&O Vital Signs Date Time Temp Pulse Resp B/P Pulse O2 O2 Flow FiO2 Ox Delivery Rate 04/13 1020 110/70 04/13 0834 98.2 80 20 150/70 99 Room Air 04/12 1946 98.1 74 20 122/70 100 Room Air 04/12 1836 97 04/12 1655 68 18 117/85 100 Room Air 04/12 1403 97.8 84 20 119/70 98 Room Air 04/12 1258 97.8 80 20 133/69 96 Room Air Intake & Output 04/13 1600 04/13 0800 02/06 0000 02/05 1600 02/05 0800 02 0000 Intake Total 700 1100 Output Total 400 350 Balance 300 750 Intake, IV 600 1000 Intake, Oral 100 100 Output, Urine 400 350 Patient 145 lb 140 lb Weight Physical Exam: PATIENT SITTING COMFORTABLY IN CHAIR NO DROOLING, STRIDOR, BLEEDING EARS CLEAR NOSE WITH DEVIATION OF EXTERNAL NOSE AT BRIDGE TO LEFT, THOUGH NOSE IS SWOLLEN THROUGHOUT DIFFUSELY NO SEPTAL HEMATOMA NOTED NO BLEEDING BREATHING THROUGH BOTH NOSTRILS ZYGOMAS INTACT ORBITAL RIMS INTACT EOMI OC/OP CLEAR NECK SUPPLE Imaging Results: CT OF SINUSES/FACE SHOWS: IMPRESSION: 1. Findings are consistent with fractures involving the bilateral nasal bones and the nasal septum. 2. There is right ethmoid and bilateral maxillary sinusitis. Assessment/Plan Assessment/Plan PATIENT RESIDENT OF THE [facility] FELL AND SUSTAINED NASAL FRACTURE HE DOES SEEM TO HAVE SOME DEVIATION OF EXTERNAL NOSE TO THE LEFT SIDE NO SEPTAL HEMATOMA THERE IS DIFFUSE SWELLING AROUND THE NOSE AT THIS POINT, NO FURTHER INTERVENTION INDICATED HE SHOULD BE SEEN IN MY [place] OFFICE THIS Wednesday ([phone]) OR [facility] Wednesday ([phone]) TO REASSESS NASAL CONTOUR AND CONDITION AFTER SWELLING HAS RESOLVED. CAN THEN DETERMINE IF HE MAY NEED CLOSED REDUCTION NASAL FRACTURE NEXT WEEK IN THE OR. THANKS ANGELLA GARZA MD, FACS Consult Acknowledgment - Thank you for your consult request. Attending MD Review Statement Attending Statement Attending Statement: examined this patient, discussed w/nursing
[2016-04-13 16:13] VITALS: BP 116/61
[2016-04-14 00:39] VITALS: BP 120/60
--- NOTE | 2016-04-14 07:23 | PN- Housestaff ---
Subjective Follow-up For: Dizziness/ s/p fall s/p fracture bilateral nasal bones and the nasal septum Acute on chronic kidney injury Tele-Events Since Last Visit: SR 69-88, NO OE Subjective: Patient seen and examined this morning. Remains minimally conversant, he had some difficulty swallowing pills, will get swallow eval today. otherwise remains afebrile, will repeat orthstatic vitals. Review of Systems Constitutional: Reports: see HPI. Objective Last 24 Hrs of Vital Signs/I&O Vital Signs Date Time Temp Pulse Resp B/P Pulse O2 O2 Flow FiO2 Ox Delivery Rate 04/14 1031 83 158/82 04/14 0805 97.5 83 20 158/82 100 Room Air 04/14 0039 97.5 67 20 120/60 98 Room Air 04/13 1613 97.4 72 20 116/61 100 Room Air Intake & Output 04/14 1600 04/14 0800 04/14 0000 Intake Total 650 880 Output Total 1250 Balance 650 -370 Intake, IV 600 400 Intake, Oral 50 480 Number 1 3 Bowel Movements Output, Urine 1250 Physical Exam General Appearance: No Acute Distress HEENT: traumatic nasal bridge Cardiovascular: Regular Rate, Normal S1, Normal S2 Lungs: Clear to Auscultation, Normal Air Movement Abdomen: Normal Bowel Sounds, Soft, No Tenderness Extremities: No Clubbing, No Cyanosis, No Edema Current Medications: Current Medications Sig/Rubens Start time Last Medication Dose Route Stop Time Status Admin Acetaminophen 650 MG Q6P PRN 04/12 1815 AC PO Acetaminophen 1,000 MG Q6P PRN 04/12 1815 AC IV Alendronate Sodium 70 MG Fr@0700 04/17 07 AC PO Atorvastatin Calcium 20 MG AT BEDTIME 04/12 2199 AC 04/13 PO 2116 Bisacodyl 10 MG MoWeFr@1000 PRN 04/12 1830 AC MI Carbamazepine 400 MG BID 04/12 2199 AC 04/14 PO 1053 Clonazepam 1 MG DAILY 04/13 1000 AC 04/14 PO 04/20 0959 1030 Clonazepam 1.5 MG AT BEDTIME 04/12 2199 AC 04/13 PO 04/19 215 2115 Gemfibrozil 600 MG BID 04/12 220 AC 04/14 PO 1030 Heparin Sodium 5,000 UNIT Q8 04/12 2199 AC 04/14 (Porcine) SC 0538 Magnesium Hydroxide 30 ML Q72H 04/12 1830 AC 04/12 PO 2235 Megestrol Acetate 40 MG DAILY 04/13 1000 AC 04/14 PO 1031 Metoprolol Tartrate 25 MG DAILY 04/13 1000 AC 04/14 PO 1031 Multivitamins 1 TAB DAILY 04/13 1000 AC 04/14 PO 1031 Omeprazole 40 MG DAILY AC 04/13 0700 AC 04/13 PO 0635 Oxycodone HCl 10 MG Q6P PRN 04/12 181 AC PO Polyethylene Glycol 17 GM DAILY 04/13 1000 AC 04/13 PO 1012 Sodium Bicarbonate 650 MG BID 04/12 2200 AC 04/14 PO 1031 Sodium Chloride 1,000 ML Q13H 04/12 1815 AC 04/14 IV 1054 Venlafaxine HCl 150 MG 0800 04/13 0800 AC 04/13 PO 1010 Assessment/Plan Assessment: This is a 60 year old male with a PMH of MR, HTN, HLD, Vitamin D defeciency, Passive Aggressive Personality disorder who presented to the ED from a [facility] for dizziness status post fall Vitals upon presentation temperature 97.8, pulse 80, respiratory rate 20, blood pressure 133/69, satting and mid 90s in room air. Labs upon presentation H&H 11.3 and 32.6, WBC 8.8, creatinine 2.[address]: Findings are consistent with fractures involving the bilateral nasal bones and the nasal septum and right ethmoid and bilateral maxillary sinusitis. Head CT: No acute intracranial pathology. Patient to be [facility] and monitored for following conditions: Dizziness/ s/p fall s/p fracture bilateral nasal bones and the nasal septum: R/O ACS, trop and ekg negative for any acute findings Continous cardiac monitoring for any cardiac arrythmias Oxyge supplementation as needed to keep O2 saturation above 90% Dizziness likely secondary to hypotension, positive orthostatic vitals Nasal septum fracture, ENT consult placed, will follow-up recommendations. Acute on chronic kidney injury: Creatinine 2.6>>2.2, baseline creatinine 1.8, likely secondary to dehydration IV fluids normal saline at 75 mg per hour History of hypertension: Patient orthostatic vitals positive continue with currently hold off antihypertensive medication will reevaluate in a.m. and restart as appropriate. History of hyperlipidemia: Will continue home dose of atorvastatin 20 mg at bedtime History of vitamin D deficiency: Will continue home dose of multivitamins History of GERD: Will continue home dose of Prilosec 40 mg daily History of MR/psychiatric problems: Will continue home dose of Tegretol 2000 Milligram twice a day and venlafaxine 150 mg daily History of constipation: Will continue home dose of bowel regimen Diet DVT prophylaxis Patient is subcutaneous heparin Problem List: 1. KRISTINA (acute kidney injury) 2. Orthostatic hypotension 3. Forehead laceration 4. Fall Pain Ratin Pain Location: none Pain Goal: Remain pain free Pain Plan: mild pain pathway Tomorrow's Labs & Rationales: bep for lytes monitoring
[2016-04-14 08:05] VITALS: BP 158/82
[2016-04-14 14:21] VITALS: BP 130/72
--- NOTE | 2016-04-14 14:39 | Discharge Summary ---
See Addendum Visit Information Visit Dates Admission Date: 04/12/16 Discharge Date: 04/14/2016 Hospital Course Course Attending Physician: GATITO FERNANDO MD Primary Care Physician: GATITO FERNANDO MD Consulting Request: Consulting Specialty: Otorhinolaryngology Hospital Course: 58 years old resident of a [facility] with significant past medical history of mental retardation, hypertension and hyperlipidemia who was brought in by ambulance today after experiencing a witnessed the fall. according to the caregiver, Kimberley, was at bedside, the patient has had 3 falls in the past 5 hours , the last one resulted in injury to his nasal bridge with blood coming out. According to caregiver the patient was started on Hyzaar, medication chemistry shows it was started on March 27. Since the medication the patient has been experiencing frequent dizzy spells and multiple falls. He is also been dehydrated. No loss of consciousness, the patient is nonverbal and unable to provide any history therefore is difficult to assess for chest pain, palpitations, changes in his vision, headaches or nausea vomiting or diarrhea. There are no objective symptoms or signs as per the caregiver. no loss of consciousness, no seizure-like activity. Vitals on admission include temperature 97.8, pulse rate of 84, respiratory rate of 20, blood pressure of 119/70 and saturation 98% on room air Orthostatics then in the ED show: BP lying 117/73, pulse 87, BP sitting 90/59, pulse 76, BP standing 75/51, pulse 59 On exam the patient has dried blood on his nasal bridge and nares I will provide any history except saying good, when asked how he is doing Not maintaining eye contact, slouched posture Grunting nasal sounds are heard on auscultation of the chest On auscultation of the heart PVCs heard, and felt upon pulse palpation No leg edema, no cyanosis. Peripheral pulses intact Pertinent lab work shows an H&H of 11.3 and 32.6 which is at baseline Sodium 133, potassium 3.6, chloride 90, A 31, and 13, BUN 73/creatinine 2.6, baseline around 1.8-1.9 First troponin negative at 0.01, EKG with no ST-T wave changes, NSR [address] scan shows: 1. Findings are consistent with fractures involving the bilateral nasal bones and the nasal septum. 2. There is right ethmoid and bilateral maxillary sinusitis. CT head shows: stable mild central and cortical atrophy, small right frontal scalp hematoma without underlying fracture and very mild right ethmoid sinusitis CT cervical spine shows no acute fracture but there is multilevel cervical degenerative disc disease Assessment: 1. Orthostatic hypotension likely secondary to diuretics 2. Presyncope/fall, secondary to orthostatic hypotension 3. Acute on chronic kidney disease stage III 4. Nasal bridge fracture secondary to fall 5. Scalp hematoma 2/2 fall 6. Hypertension 7. Mental retardation 8. Strict behavioral and mood disturbances 8. Hyperlipidemia Patient was admitted to telemetry floor 1. Orthostatic hypotension likely secondary to diuretics: - We hold off on antihypertensives especially Hyzaar - Hydrated with normal saline at 75 mL per hour, we checked orthostat which was 2. Presyncope/fall, secondary to orthostatic hypotension: - Patient has been having presyncope, multiple falls, dizziness likely secondary to orthostatic hypotension secondary to high doses of antihypertensives and diuretics -Troponin was negative, EKG with no acute changes, we resumed 3. Nasal bridge fracture: Patient evaluated by ENT specialist who stat that at this point, no further intervention indicated. He should be seen in ANGELLA GARZA MD, FACS at [facility] THIS WEDNESDAY MORNING ([phone]) OR [facility] WEDNESDAY MORNING ([phone]) TO REASSESS NASAL CONTOUR AND CONDITION AFTER SWELLING HAS RESOLVED. CAN THEN DETERMINE IF HE MAY NEED CLOSED REDUCTION NASAL FRACTURE NEXT WEEK IN THE OR. 4. Scalp Hematoma on CT scan: There is No evidence of external bleeding, no fracture 5. Acute on chronic kidney disease stage III: - Baseline creatinine between 1.8 1.9, has been as high as 2.8 in the past as well. We hydrated the patient with IV NS, at 04/14/2016 his creatinine is 2.2. 6. Hypertension: - Patient has history of hypertension, BP 117/85 on admission, initially we held all BP meds, then we started metoprolol at home dose. He needs to f/u with his primary care physician for adjusting his BP medications. 7. Mental retardation/behavioral and mood disturbances: - We continued with home meds that include Effexor, Tegretol, Klonopin, - He also takes Geodon which was not administer at this hospitalization because it's not available. 8. We continued with multivitamins, Megace, betamethasone, Fosamax, vitamin D is monthly( Not given), we continued Nexium and Lipitor 9. 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 Will provide the patient with a referral, he can f/u with nephrology as an outpatient if needed. Complications: Non Allergies: Coded Allergies: lactose (Mild, VOMITING 05/29/15) phenytoin (UNKNOWN 05/29/15) Disposition Summary Disposition Principal Diagnosis: Dizziness/ s/p fall s/p fracture bilateral nasal bones and the nasal septum Acute on chronic kidney injury Additional Diagnosis: MR, HTN, HLD, Vitamin D defeciency, Passive Aggressive Personality disorder [facility]charge Disposition: a [facility] Discharge Instructions General Discharge Information Code Status: Full Code Patient's Diet: low-fat, low-cholesterol, no added salt, lactose-free, no dairy products, all needs to be ground, onto the foot to be soft, and thickened liquid, nectar consistency C of liquid diet Patient's Activity: Limited Follow-Up Instructions/Appts: Please schedule a follow-up appointment with primary physician in one week. Hyzaar and amlodipine has been held upon admission secondary to low blood pressure, discuss with your primary care physician went to restarted safely. YOU SHOULD SEE ENT specialist ANGELLA GARZA MD IN HIS [place] OFFICE THIS WEDNESDAY MORNING ([phone]) OR [place] [facility] WEDNESDAY MORNING ([phone]) TO REASSESS NASAL CONTOUR AND CONDITION AFTER SWELLING HAS RESOLVED. WILL DETERMINE IF YOU MAY NEED CLOSED REDUCTION NASAL FRACTURE NEXT WEEK IN THE OR. Medications at Discharge Discharge Medications: Stop taking the following medications: Amlodipine (Norvasc 10MG) 10 MG TAB ORAL DAILY Losartan/Hydrochlorothiazide (Hyzaar 50-12.5 Tablet) 50 MG-12.5 MG TABLET ORAL DAILY Continue taking these medications: Polyethylene Glycol 3350 (Miralax) 17 GM PWD 17 Gram ORAL DAILY Instructions: mix with water, juice, soda, coffee or tea Comments: NOT GIVEN IN HOSPITAL. Gemfibrozil (Lopid 600 MG Tab) 600 MG TAB 1 Tablet ORAL TWICE DAILY Comments: Last Taken: 06/03/15 Time: 10am Carbamazepine (Carbamazepine) 100 MG/5 ML KIMBERLY 20 Milliliters ORAL TWICE DAILY Comments: Last Taken: 06/03/15 Time: 10am Venlafaxine Hydrochloride (Effexor-XR) 75 MG CER 2 Tablet ORAL TWICE DAILY Comments: Last Taken: 06/03/15 Time: 10am Clonazepam (Klonopin 1MG Tab) 1 MG TAB 1 Tablet ORAL DAILY Comments: Last Taken: 06/03/15 Time: 10am Clonazepam (Klonopin) 0.5 MG TAB 3 Tablet ORAL AT BEDTIME Comments: Last Taken: 06/02/15 Time: 930pm Atorvastatin Calcium (Lipitor) 20 MG TAB 1 Tablet ORAL AT BEDTIME Comments: Last Taken: 06/02/15 Time: 430pm CHOLECALCIFEROL (VITAMIN D3) (Vitamin D3) 1 LIQ LIQ 6.25 Milliliters ORAL MONTHLY Comments: NOT GIVEN IN HOSPITAL. Multivitamin and Minerals4 (Centrum 240 Ml) 240 ML LIQ 15 Milliliters ORAL DAILY Comments: NOT GIVEN IN HOSPITAL. Megestrol Acetate (Megace 40 MG Tab) 40 MG TAB 1 Tablet ORAL DAILY Comments: NOT GIVEN IN HOSPITAL. Metoprolol Tartrate (Lopressor) 25 MG TAB 1 Tablet ORAL DAILY Comments: Last Taken: 06/03/15 Time: 10am Ziprasidone Hydrochloride (Geodon 80 MG Cap) 80 MG CAP 1 Capsule ORAL AT BEDTIME Comments: NOT GIVEN IN HOSPITAL. Bisacodyl (Dulcolax) 10 MG SUP 1 SUPPOSITORY RECTALLY Comments: NOT GIVEN IN HOSPITAL. Lactase (Lactaid) 3,000 U TAB 1 Tablet ORAL DAILY as needed for LACTOSE INTOLERANCE Instructions: TO BE GIVEN WHEN THE PATIENT IS ABOUT TO HAVE DAIRY PRODUCTS Comments: NOT GIVEN IN HOSPITAL. Mineral Oil (Lubriderm 480ML (16OZ)) 16 OZ LOT 1 Application On the skin DAILY Comments: NOT GIVEN IN HOSPITAL. Magnesium Hydroxide (Milk Of Magnesia 30ML) 30 ML UDC 30 Milliliters ORAL 3RD DAY Instructions: TO BE GIVEN ON THE 3 RD DAY OF NO BOWEL MOVEMENT Comments: NOT GIVEN IN HOSPITAL. Nutritional Supplement (Nepro 1000 Ml) 1,000 ML LIQ 1 Can ORAL THREE TIMES DAILY Comments: NOT GIVEN IN HOSPITAL. Esomeprazole (Nexium) 40 MG CAPSULE.DR 1 Capsule ORAL DAILY Qty = 30 Comments: Last Taken: 04/17/16 Time: 6:30 AM Sodium Bicarbonate (Sodium Bicarbonate) 650 MG TABLET 1 Tablet ORAL TWICE DAILY Comments: Last Taken: 04/17/16 Time: 11:30 AM Alendronate Sodium (Fosamax) 70 MG TABLET 1 Tablet ORAL EVERY WEDNESDAY Instructions: in the morning, at least 30 minutes before the first food, beverage, or medication of the day Comments: Last Taken: 04/17/16 Time: 6 AM Copies To: ABDULLAHI VÁZQUEZ,GATITO
[2016-04-14 16:24] VITALS: BP 155/77
--- NOTE | 2016-04-14 18:18 | PN- Att Addend ---
Attending Addendum Attending Brief Note Patient looking and feeling better today. His face is looking better. No new issues vital signs are stable. No fever. Start disposition plans to return to the long term Current Medications Sig/Rubens Start time Last Medication Dose Route Stop Time Status Admin Acetaminophen 650 MG Q6P PRN 04/12 1815 AC PO Acetaminophen 1,000 MG Q6P PRN 04/12 1815 AC IV Alendronate Sodium 70 MG Fr@0700 04/17 0700 AC PO Atorvastatin Calcium 20 MG AT BEDTIME 04/12 2200 AC 04/13 PO 2116 Bisacodyl 10 MG MoWeFr@1000 PRN 04/12 1830 AC [place] Carbamazepine 400 MG BID 04/12 2200 AC 04/14 PO 1053 Clonazepam 1 MG DAILY 04/13 1000 AC 04/14 PO 04/20 0959 1030 Clonazepam 1.5 MG AT BEDTIME 04/12 2200 AC 04/13 PO 04/19 2159 2115 Gemfibrozil 600 MG BID 04/12 2200 AC 04/14 PO 1030 Heparin Sodium 5,000 UNIT Q8 04/12 2200 AC 04/14 (Porcine) SC 1426 Magnesium Hydroxide 30 ML Q72H 04/12 1830 AC 04/12 PO 2235 Megestrol Acetate 40 MG DAILY 04/13 1000 AC 04/14 PO 1031 Metoprolol Tartrate 25 MG DAILY 04/13 1000 AC 04/14 PO 1031 Multivitamins 1 TAB DAILY 04/13 1000 AC 04/14 PO 1031 Omeprazole 40 MG DAILY AC 04/13 0700 AC 04/13 PO 0635 Oxycodone HCl 10 MG Q6P PRN 04/12 1815 AC PO Polyethylene Glycol 17 GM DAILY 04/13 1000 AC 04/13 PO 1012 Sodium Bicarbonate 650 MG BID 04/12 2200 AC 04/14 PO 1031 Sodium Chloride 1,000 ML Q13H 04/12 1815 DC 04/14 IV 1054 Venlafaxine HCl 150 MG 0800 04/13 0800 AC 04/13 PO 1010 Vital Signs Date Time Temp Pulse Resp B/P Pulse O2 O2 Flow FiO2 Ox Delivery Rate 04/14 1624 98.7 82 16 155/77 100 Room Air 04/14 1421 83 130/72 04/14 1031 83 158/82 04/14 0805 97.5 83 20 158/82 100 Room Air 04/14 0039 97.5 67 20 120/60 98 Room Air Intake & Output 04/14 1600 04/14 0800 04/14 0000 Intake Total 1320 650 880 Output Total 1250 Balance 1320 650 -370 Intake, IV 600 400 Intake, Oral 1320 50 480 Number 3 1 3 Bowel Movements Output, Urine 1250
[2016-04-15 02:04] VITALS: BP 160/80
--- NOTE | 2016-04-15 07:37 | PN- Housestaff ---
Subjective Follow-up For: Dizziness/ s/p fall s/p fracture bilateral nasal bones and the nasal septum Acute on chronic kidney injury Subjective: Patient seen and examined this morining. remains at his baseline minimally conversant, afberile, other vitals stable. no complaints. Review of Systems Constitutional: Reports: see HPI. Cardiovascular: Denies: chest pain, palpitations. Respiratory: Denies: cough, sputum production. Gastrointestinal: Denies: abdominal pain, constipation, diarrhea, nausea, vomiting. Genitourinary: Denies: dysuria, frequency. Objective Last 24 Hrs of Vital Signs/I&O Vital Signs Date Time Temp Pulse Resp B/P Pulse O2 O2 Flow FiO2 Ox Delivery Rate 04/15 799 97.8 85 18 148/74 100 Room Air 04/15 0204 98.4 81 18 160/80 99 Room Air 04/14 1624 98.7 82 16 155/77 100 Room Air 04/14 1421 83 130/72 04/14 1031 83 158/82 Intake & Output 04/15 1600 04/15 0800 04/15 0000 Intake Total 490 730 Output Total Balance 490 730 Intake, IV 10 10 Intake, Oral 480 720 Physical Exam General Appearance: Alert, Oriented X3, Cooperative, No Acute Distress HEENT: traumatci nasal bridge, no swelling, no recuurent bleeding Neck: Supple, No JVD, No thryomegaly, +2 Carotid Pulse wo Bruit Cardiovascular: Regular Rate, Normal S1, Normal S2, No Murmurs Lungs: Clear to Auscultation, Normal Air Movement Abdomen: Normal Bowel Sounds, Soft, No Tenderness Extremities: No Clubbing, No Cyanosis, No Edema Current Medications: Current Medications Sig/Rubens Start time Last Medication Dose Route Stop Time Status Admin Acetaminophen 650 MG Q6P PRN 04/12 1814 AC PO Acetaminophen 1,000 MG Q6P PRN 04/12 181 AC IV Alendronate Sodium 70 MG Fr@0700 04/17 07 AC PO Atorvastatin Calcium 20 MG AT BEDTIME 04/12 2199 AC 04/14 PO 2110 Bisacodyl 10 MG MoWeFr@1000 PRN 04/12 1830 AC [place] Carbamazepine 400 MG BID 04/12 2199 AC 04/14 PO 2111 Clonazepam 1 MG .STK-MED ONE 04/14 1024 DC PO 04/14 1025 Clonazepam 1 MG DAILY 04/13 1000 AC 04/14 PO 04/20 0959 1030 Clonazepam 1.5 MG AT BEDTIME 04/12 2200 AC 04/14 PO 04/19 215 2110 Gemfibrozil 600 MG BID 04/12 2200 AC 04/14 PO 2110 Heparin Sodium 5,000 UNIT Q8 04/12 2200 AC 04/15 (Porcine) SC 0606 Magnesium Hydroxide 30 ML Q72H 04/12 1830 AC 04/12 PO 2235 Megestrol Acetate 40 MG DAILY 04/13 1000 AC 04/14 PO 1031 Metoprolol Tartrate 25 MG DAILY 04/13 1000 AC 04/14 PO 1031 Multivitamins 1 TAB DAILY 04/13 1000 AC 04/14 PO 1031 Omeprazole 40 MG DAILY AC 04/13 0700 AC 04/13 PO 0635 Oxycodone HCl 10 MG Q6P PRN 04/12 1815 AC PO Polyethylene Glycol 17 GM DAILY 04/13 1000 AC 04/13 PO 1012 Sodium Bicarbonate 650 MG BID 04/12 2200 AC 04/14 PO 2110 Sodium Chloride 1,000 ML Q13H 04/12 1815 DC 04/14 IV 1054 Venlafaxine HCl 150 MG 0800 04/13 0800 AC 04/13 PO 1010 Assessment/Plan Assessment: This is a 60 year old male with a PMH of MR, HTN, HLD, Vitamin D defeciency, Passive Aggressive Personality disorder who [facility] status post fall Vitals upon presentation temperature 97.8, pulse 80, respiratory rate 20, blood pressure 133/69, satting and mid 90s in room air. Labs upon presentation H&H 11.3 and 32.6, WBC 8.8, creatinine 2.[address]: Findings are consistent with fractures involving the bilateral nasal bones and the nasal septum and right ethmoid and bilateral maxillary sinusitis. Head CT: No acute intracranial pathology. [facility] floor and monitored for following conditions: Dizziness/ s/p fall s/p fracture bilateral nasal bones and the nasal septum: R/O ACS, trop and ekg negative for any acute findings Continous cardiac monitoring for any cardiac arrythmias Oxyge supplementation as needed to keep O2 saturation above 90% Dizziness likely secondary to hypotension, positive orthostatic vitals Nasal septum fracture, ENT consult placed, will follow-up recommendations. Acute on chronic kidney injury: Creatinine 2.6>>2.2, baseline creatinine 1.8, likely secondary to dehydration IV fluids normal saline at 75 mg per hour History of hypertension: Patient orthostatic vitals positive continue with currently hold off antihypertensive medication will reevaluate in a.m. and restart as appropriate. History of hyperlipidemia: Will continue home dose of atorvastatin 20 mg at bedtime History of vitamin D deficiency: Will continue home dose of multivitamins History of GERD: Will continue home dose of Prilosec 40 mg daily History of MR/psychiatric problems: Will continue home dose of Tegretol 2000 Milligram twice a day and venlafaxine 150 mg daily History of constipation: Will continue home dose of bowel regimen Diet DVT prophylaxis Patient is subcutaneous heparin Problem List: 1. Forehead laceration 2. Fall Pain Ratin Pain Location: none Pain Goal: Remain pain free Pain Plan: mild pain pathway Tomorrow's Labs & Rationales: none Consulting Request: Consulting Specialty: Otorhinolaryngology
[2016-04-15 08:00] VITALS: BP 148/74
[2016-04-15 14:31] LABS: ABSOLUTE BASOPHIL COUNT 0 /CUMM (0.0-0.2); ABSOLUTE EOSINOPHIL COUNT 0 /CUMM (0.0-0.7); ABSOLUTE GRANULOCYTE CT 4.2 /CUMM (1.4-6.5); ABSOLUTE LYMPH COUNT 0.9 /CUMM (1.2-3.4); ABSOLUTE MONOCYTE COUNT 0.4 /CUMM (0.10-0.60); BASOPHIL % 0.4 % (0.0-2.0); EOSINOPHIL % 0 % (0-5); GRANULOCYTE % 75.6 % (42.2-75.2); HEMATOCRIT 30.5 % (42-52); MEAN CORPUSCULAR HGB 31.4 PG (27.0-31.0); MEAN CORPUSCULAR HGB CONC 34.3 G/DL (33.0-37.0); MEAN CORPUSCULAR VOLUME 91.7 FL (80.0-94.0); MEAN PLATELET VOLUME 8.4 FL (7.4-10.4); PLATELET COUNT 198 /CUMM (130-400); RBC DISTRIBUTION WIDTH 12.7 % (11.5-14.5); RED BLOOD CELL CT 3.33 /CUMM (4.70-6.10); WHITE BLOOD CELL COUNT 5.5 /CUMM (4.8-10.8)
--- NOTE | 2016-04-15 14:52 | PN- Att Addend ---
Attending Addendum Attending Brief Note No new issues today. Patient is not orthostatic, patient on metoprolol. Had a meeting with people of the assisted mother concerned that patient ingests a lot of fluids during the day, and his BUN and creatinine are still abnormal. Will ask umbrella cutter to evaluate the patient before discharge for recommendations regarding BP control and following renal function patient has a umbrella cutter as an outpatient also will have PT make sure patient is strong enough to go home after all this was start disposition plans. Current Medications Sig/Rubens Start time Last Medication Dose Route Stop Time Status Admin Acetaminophen 650 MG Q6P PRN 04/12 181 AC PO Acetaminophen 1,000 MG Q6P PRN 04/12 1815 AC IV Alendronate Sodium 70 MG Fr@0700 04/17 0700 AC PO Atorvastatin Calcium 20 MG AT BEDTIME 04/12 2200 AC 04/14 PO 2110 Bisacodyl 10 MG MoWeFr@1000 PRN 04/12 1830 AC [place] Carbamazepine 400 MG BID 04/12 2200 AC 04/15 PO 1020 Clonazepam 1 MG DAILY 04/13 1000 AC 04/15 PO 04/20 0959 1030 Clonazepam 1.5 MG AT BEDTIME 04/12 2200 AC 04/14 PO 04/19 2159 2110 Gemfibrozil 600 MG BID 04/12 2200 AC 04/15 PO 1011 Heparin Sodium 5,000 UNIT Q8 04/12 2200 AC 04/15 (Porcine) SC 0606 Magnesium Hydroxide 30 ML Q72H 04/12 1830 AC 04/12 PO 2235 Megestrol Acetate 40 MG DAILY 04/13 1000 AC 04/15 PO 1010 Metoprolol Tartrate 25 MG DAILY 04/13 1000 AC 04/15 PO 1011 Multivitamins 1 TAB DAILY 04/13 1000 AC 04/15 PO 1011 Omeprazole 40 MG DAILY AC 04/13 0700 AC 04/13 PO 0635 Oxycodone HCl 10 MG Q6P PRN 04/12 1815 AC PO Polyethylene Glycol 17 GM DAILY 04/13 1000 AC 04/13 PO 1012 Sodium Bicarbonate 650 MG BID 04/12 2200 AC 04/15 PO 1010 Sodium Chloride 1,000 ML Q13H 04/12 1815 DC 04/14 IV 1054 Venlafaxine HCl 150 MG 0800 04/13 0800 AC 04/13 PO 1010 Laboratory Tests 04/15/16 1345: Alkaline Phosphatase Cancelled 04/15/16 1345: Sodium Pending, Potassium Pending, Chloride Pending, Carbon Dioxide Pending, Anion Gap Pending, BUN Pending, Creatinine Pending, BUN/Creatinine Ratio Pending , Alkaline Phosphatase Pending, CBC w Diff Pending, WBC Pending, RBC Pending, Hgb Pending, Hct Pending, MCV Pending, MCH Pending, RDW Pending, Plt Count Pending, MPV Pending, PUBS MCHC Pending Vital Signs Date Time Temp Pulse Resp B/P Pulse O2 O2 Flow FiO2 Ox Delivery Rate 04/15 1011 85 148/74 04/15 0800 97.8 85 18 148/74 100 Room Air
[2016-04-15 16:26] VITALS: BP 118/80
[2016-04-15 23:09] VITALS: BP 128/80
--- NOTE | 2016-04-16 07:15 | PN- Housestaff ---
Subjective Follow-up For: Dizziness/ s/p fall s/p fracture bilateral nasal bones and the nasal septum Acute on chronic kidney injury Subjective: Patient seen and examined this morining. He contiunes remains at his baseline minimally conversant,no complaints. Afberile, other vitals stable. Review of Systems Constitutional: Denies: chills, weakness. Cardiovascular: Denies: chest pain, palpitations. Respiratory: Denies: cough, sputum production. Gastrointestinal: Denies: abdominal pain, constipation, diarrhea, nausea, vomiting. Genitourinary: Denies: dysuria, frequency. Objective Last 24 Hrs of Vital Signs/I&O Vital Signs Date Time Temp Pulse Resp B/P Pulse O2 O2 Flow FiO2 Ox Delivery Rate 04/16 835 98.5 83 24 132/72 96 Room Air Room Air 04/15 2309 98.1 78 18 128/80 100 Room Air 04/15 1626 98.2 79 18 118/80 100 /08 1521 Room Air Intake & Output 04/16 1600 04/16 0800 04/16 0000 Intake Total 1800 1000 Output Total 500 Balance 1300 1000 Intake, Oral 1800 1000 Output, Urine 500 Patient 65.771 kg Weight Physical Exam General Appearance: Alert, Oriented X3, Cooperative Cardiovascular: Regular Rate, Normal S1, Normal S2, No Murmurs Lungs: Clear to Auscultation, Normal Air Movement Abdomen: Normal Bowel Sounds, Soft, No Tenderness Extremities: No Clubbing, No Cyanosis, No Edema Current Medications: Current Medications Sig/Rubens Start time Last Medication Dose Route Stop Time Status Admin Acetaminophen 650 MG Q6P PRN 04/12 1815 AC PO Acetaminophen 1,000 MG Q6P PRN 04/12 1815 AC IV Alendronate Sodium 70 MG Fr@0700 04/17 0700 AC PO Atorvastatin Calcium 20 MG AT BEDTIME 04/12 2199 AC 04/15 PO 210 Bisacodyl 10 MG MoWeFr@1000 PRN 04/12 1830 AC [place] Carbamazepine 400 MG BID 04/12 2199 AC 04/15 PO 210 Clonazepam 1 MG DAILY 04/13 1000 AC 04/15 PO 04/20 0959 1030 Clonazepam 1.5 MG AT BEDTIME 04/12 2199 AC 04/15 PO 04/199 2109 Gemfibrozil 600 MG BID 04/12 2199 AC 04/15 PO 210 Heparin Sodium 5,000 UNIT Q8 04/12 2200 AC 04/16 (Porcine) SC 0559 Magnesium Hydroxide 30 ML Q72H 04/12 1830 AC 04/12 PO 2235 Megestrol Acetate 40 MG DAILY 04/13 1000 AC 04/15 PO 1010 Metoprolol Tartrate 25 MG DAILY 04/13 1000 AC 04/15 PO 1011 Multivitamins 1 TAB DAILY 04/13 1000 AC 04/15 PO 1011 Omeprazole 40 MG DAILY AC 04/13 0700 AC 04/13 PO 0635 Oxycodone HCl 10 MG Q6P PRN 04/12 1815 AC PO Polyethylene Glycol 17 GM DAILY 04/13 1000 AC 04/13 PO 1012 Sodium Bicarbonate 650 MG BID 04/12 2199 AC 04/15 PO 2108 Venlafaxine HCl 150 MG 0800 04/13 0800 AC 04/13 PO 1010 Last 24 Hrs of Lab/Luis Results Last 24 Hrs of Labs/Mics: Laboratory Tests 04/16/16 0530: Urine Color YEL, Urine Clarity CLEAR, Urine pH 7.5, Ur Specific [place] 1.015, Urine Protein 30 H, Urine Ketones NEG, Urine Nitrite NEG, Urine Bilirubin NEG, Urine Urobilinogen 0.2, Ur Leukocyte Esterase NEG, Ur Microscopic SEDIMENT EXAMINED, Urine RBC FEW H, Urine Hemoglobin NEG, Urine Glucose NEG 04/15/16 1345: Alkaline Phosphatase Cancelled 04/15/16 1345: Anion Gap 12, Estimated GFR 39 L, BUN/Creatinine Ratio 12.2, Alkaline Phosphatase 137 H, CBC w Diff NO MAN DIFF REQ, RBC 3.33 L, MCV 91.7, MCH 31.4 H, RDW 12.7, MPV 8.4, Gran % 75.6 H, Lymphocytes % 16.2 L, Monocytes % 7.8, Eosinophils % 0, Basophils % 0.4, Absolute Granulocytes 4.2, Absolute Lymphocytes 0.9 L, Absolute Monocytes 0.4, Absolute Eosinophils 0, Absolute Basophils 0, PUBS MCHC 34.3 Assessment/Plan Assessment: This is a 60 year old male with a PMH of MR, HTN, HLD, Vitamin D defeciency, Passive Aggressive Personality disorder who presented to the ED from a residential for dizziness status post fall Vitals upon presentation temperature 97.8, pulse 80, respiratory rate 20, blood pressure 133/69, satting and mid 90s in room air. Labs upon presentation H&H 11.3 and 32.6, WBC 8.8, creatinine 2[address]: Findings are consistent with fractures involving the bilateral nasal bones and the nasal septum and right ethmoid and bilateral maxillary sinusitis. Head CT: No acute intracranial pathology. Patient to be admitted to [facility] floor and monitored for following conditions: Dizziness/ s/p fall s/p fracture bilateral nasal bones and the nasal septum: R/O ACS, trop and ekg negative for any acute findings Continous cardiac monitoring for any cardiac arrythmias Oxyge supplementation as needed to keep O2 saturation above 90% Dizziness likely secondary to hypotension, positive orthostatic vitals upon admission. Repeat ultrasound negative Nasal septum fracture, ENT consult placed, recommended to have patient follow-up as an outpatient for further workup Acute on chronic kidney injury: Creatinine 2.6>>2.2>>1.8, baseline creatinine 1.8, likely secondary to dehydration IV fluids normal saline at 75 mg per hour History of hypertension: Patient orthostatic vitals positive, Hyzaar and amlodipine discontinued, he should've follow-up with primary care physician upon discharge. History of hyperlipidemia: Will continue home dose of atorvastatin 20 mg at bedtime History of vitamin D deficiency: Will continue home dose of multivitamins History of GERD: Will continue home dose of Prilosec 40 mg daily History of MR/psychiatric problems: Will continue home dose of Tegretol 2000 Milligram twice a day and venlafaxine 150 mg daily History of constipation: Will continue home dose of bowel regimen Diet DVT prophylaxis Patient is subcutaneous heparin Problem List: 1. KRISTINA (acute kidney injury) 2. Fall Pain Ratin Pain Location: None Pain Goal: Remain pain free Pain Plan: Mild pain pathway Tomorrow's Labs & Rationales: BEP for lites monitoring Consulting Request: Consulting Specialty: Otorhinolaryngology
[2016-04-16 08:36] VITALS: BP 132/72
--- NOTE | 2016-04-16 12:26 | PN- Att Addend ---
Attending Addendum Attending Brief Note Patient is comfortable in bed his nose is healing. Ambulated with physical therapy with no problems nephrology consult pending, after that will able to [facility] Current Medications Sig/Rubens Start time Last Medication Dose Route Stop Time Status Admin Acetaminophen 650 MG Q6P PRN 04/12 181 AC PO Acetaminophen 1,000 MG Q6P PRN 04/12 1815 AC IV Alendronate Sodium 70 MG Fr@0700 04/17 0700 AC PO Atorvastatin Calcium 20 MG AT BEDTIME 04/12 2200 AC 04/15 PO 2108 Bisacodyl 10 MG MoWeFr@1000 PRN 04/12 1830 AC [place] Carbamazepine 400 MG BID 04/12 2200 AC 04/16 PO 1040 Clonazepam 1 MG DAILY 04/13 1000 AC 04/16 PO 04/20 0959 1041 Clonazepam 1.5 MG AT BEDTIME 04/12 2200 AC 04/15 PO 04/19 2159 2109 Gemfibrozil 600 MG BID 04/12 2200 AC 04/16 PO 1040 Heparin Sodium 5,000 UNIT Q8 04/12 2200 AC 04/16 (Porcine) DC 0559 Magnesium Hydroxide 30 ML Q72H 04/12 1830 AC 04/12 PO 2235 Megestrol Acetate 40 MG DAILY 04/13 1000 AC 04/16 PO 1039 Metoprolol Tartrate 25 MG DAILY 04/13 1000 AC 04/16 PO 1040 Multivitamins 1 TAB DAILY 04/13 1000 AC 04/16 PO 1039 Omeprazole 40 MG DAILY AC 04/13 0700 AC 04/13 PO 0635 Oxycodone HCl 10 MG Q6P PRN 04/12 1815 AC PO Polyethylene Glycol 17 GM DAILY 04/13 1000 AC 04/16 PO 1040 Sodium Bicarbonate 650 MG BID 04/12 2200 AC 04/16 PO 1039 Venlafaxine HCl 150 MG 0800 04/13 0800 AC 04/13 PO 1010 Laboratory Tests 04/16/16 0530: Urine Color YEL, Urine Clarity CLEAR, Urine pH 7.5, Ur Specific [place] 1.015, Urine Protein 30 H, Urine Ketones NEG, Urine Nitrite NEG, Urine Bilirubin NEG, Urine Urobilinogen 0.2, Ur Leukocyte Esterase NEG, Ur Microscopic SEDIMENT EXAMINED, Urine RBC FEW H, Urine Hemoglobin NEG, Urine Glucose NEG 04/15/16 1345: Alkaline Phosphatase Cancelled 04/15/16 1345: Anion Gap 12, Estimated GFR 39 L, BUN/Creatinine Ratio 12.2, Alkaline Phosphatase 137 H, CBC w Diff NO MAN DIFF REQ, RBC 3.33 L, MCV 91.7, MCH 31.4 H, RDW 12.7, MPV 8.4, Gran % 75.6 H, Lymphocytes % 16.2 L, Monocytes % 7.8, Eosinophils % 0, Basophils % 0.4, Absolute Granulocytes 4.2, Absolute Lymphocytes 0.9 L, Absolute Monocytes 0.4, Absolute Eosinophils 0, Absolute Basophils 0, PUBS MCHC 34.3 Vital Signs Date Time Temp Pulse Resp B/P Pulse O2 O2 Flow FiO2 Ox Delivery Rate 04/16 1040 83 132/72 04/16 0836 98.5 83 24 132/72 96 Room Air Room Air
[2016-04-16 15:59] VITALS: BP 136/90
[2016-04-17 00:15] VITALS: BP 128/72
[2016-04-17 08:25] VITALS: BP 135/85
[2016-04-17 13:34] VITALS: BP 120/80
--- NOTE | 2016-04-17 15:06 | PN- Housestaff ---
Subjective Follow-up For: Fall/ nasal trauma Subjective: pt seen and examined. he remains at his baseline , minimally verbal, in no acute distress, eating and tolerating well. Afebrile, other vitals wnl. Review of Systems Constitutional: Reports: see HPI. Objective Last 24 Hrs of Vital Signs/I&O Vital Signs Date Time Temp Pulse Resp B/P Pulse O2 O2 Flow FiO2 Ox Delivery Rate 04/17 1334 97.4 88 15 120/80 04/17 1127 120/80 04/17 0825 97.4 88 15 135/85 99 Room Air 04/17 0015 99.2 90 20 128/72 99 04/16 1559 98.3 90 20 136/90 99 Intake & Output 04/17 1600 04/17 0800 04/17 0000 Intake Total 200 800 Output Total Balance 200 800 Intake, Oral 200 800 Number 1 Bowel Movements Physical Exam General Appearance: Alert, Oriented X3, Cooperative, No Acute Distress Cardiovascular: Regular Rate, Normal S1, Normal S2, No Murmurs Lungs: Clear to Auscultation, Normal Air Movement Abdomen: Normal Bowel Sounds, Soft, No Tenderness Extremities: No Clubbing, No Cyanosis, No Edema Current Medications: Current Medications Sig/Rubens Start time Last Medication Dose Route Stop Time Status Admin Acetaminophen 650 MG Q6P PRN 04/12 181 AC PO Acetaminophen 1,000 MG Q6P PRN 04/12 181 AC IV Alendronate Sodium 70 MG Fr@0700 04/17 0700 AC 04/17 PO 0619 Atorvastatin Calcium 20 MG AT BEDTIME 04/12 2199 AC 04/16 PO 211 Bisacodyl 10 MG MoWeFr@1000 PRN 04/12 183 AC [place] Carbamazepine 400 MG BID 04/12 2199 AC 04/17 PO 1128 Clonazepam 1 MG DAILY 04/13 999 AC 04/17 PO 04/20 0959 1126 Clonazepam 1.5 MG AT BEDTIME 04/12 2199 AC 04/16 PO 04/19 2158 2116 Gemfibrozil 600 MG BID 04/12 2199 AC 04/17 PO 112 Heparin Sodium 5,000 UNIT Q8 04/12 2199 AC 04/17 (Porcine) SC 0600 Magnesium Hydroxide 30 ML Q72H 04/12 1830 AC 04/12 PO 2235 Megestrol Acetate 40 MG DAILY 04/13 1000 AC 04/17 PO 1127 Metoprolol Tartrate 25 MG DAILY 04/13 1000 AC 04/17 PO 1127 Multivitamins 1 TAB DAILY 04/13 1000 AC 04/17 PO 1127 Omeprazole 40 MG DAILY AC 04/13 0700 AC 04/13 PO 0635 Oxycodone HCl 10 MG Q6P PRN 04/12 1815 AC PO Polyethylene Glycol 17 GM DAILY 04/13 1000 AC 04/16 PO 1040 Sodium Bicarbonate 650 MG BID 04/12 2200 AC 04/17 PO 1127 Venlafaxine HCl 150 MG 0800 04/13 0800 AC 04/17 PO 1127 Assessment/Plan Assessment: This is a 60 year old male with a PMH of MR, HTN, HLD, Vitamin D defeciency, Passive Aggressive Personality disorder who [facility] post [facility] Vitals upon presentation temperature 97.8, pulse 80, respiratory rate 20, blood pressure 133/69, satting and mid 90s in room air. Labs upon presentation H&H 11.3 and 32.6, WBC 8.8, creatinine 2[address]: Findings are consistent with fractures involving the bilateral nasal bones and the nasal septum and right ethmoid and bilateral maxillary sinusitis. Head CT: No acute intracranial pathology. Patient to be admitted to [facility] floor and monitored for following conditions: Dizziness/ s/p fall s/p fracture bilateral nasal bones and the nasal septum: R/O ACS, trop and ekg negative for any acute findings Continous cardiac monitoring for any cardiac arrythmias Oxyge supplementation as needed to keep O2 saturation above 90% Dizziness likely secondary to hypotension, positive orthostatic vitals upon admission. Repeat ultrasound negative Nasal septum fracture, ENT consult placed, recommended to have patient follow-up as an outpatient for further workup Acute on chronic kidney injury: Creatinine 2.6>>2.2>>1.8, baseline creatinine 1.8, likely secondary to dehydration IV fluids normal saline at 75 mg per hour History of hypertension: Patient orthostatic vitals positive, Hyzaar and amlodipine discontinued, he should've follow-up with primary care physician upon discharge. History of hyperlipidemia: Will continue home dose of atorvastatin 20 mg at bedtime History of vitamin D deficiency: Will continue home dose of multivitamins History of GERD: Will continue home dose of Prilosec 40 mg daily History of MR/psychiatric problems: Will continue home dose of Tegretol 2000 Milligram twice a day and venlafaxine 150 mg daily History of constipation: Will continue home dose of bowel regimen Diet DVT prophylaxis Patient is subcutaneous heparin Problem List: 1. Fall Pain Ratin Pain Location: none Pain Goal: Remain pain free Pain Plan: mild pp Tomorrow's Labs & Rationales: None pt to be d/c Consulting Request: Consulting Specialty: Otorhinolaryngology Discharge Plan Stable for Discharge? Yes Anticipated Discharge (Day): today If Discharged Today/In 24 Hrs: W-10/discharge paper done, DC summary done, CMR done
== END 2016-04-17 16:06 | DRG 312 ==
LOC: ENRESERVTM → ENRESERVDT → ERH 12:44 → ENPENDDIS 16:15 → 1NO 16:15 → ERHI 16:15 → 1NO 19:22
PROVIDERS: Emergency Medicine; Student in an Organized Health Care Education/Training Program; ADMIT Hospitalist
DX: I95.2 Hypotension due to drugs (principal); N17.9 Acute kidney failure, unspecified; N18.3 Chronic kidney disease, stage 3 (moderate); S02.2XXA Fracture of nasal bones, initial encounter for closed fracture; I12.9 Hypertensive chronic kidney disease with stage 1 through stage 4 chronic kidney disease, or unspecified chronic kidney disease; S00.03XA Contusion of scalp, initial encounter; T50.2X5A Adverse effect of carbonic-anhydrase inhibitors, benzothiadiazides and other diuretics, initial encounter; F60.89 Other specific personality disorders; E78.5 Hyperlipidemia, unspecified; F79 Unspecified intellectual disabilities; W19.XXXA Unspecified fall, initial encounter; Y92.89 Other specified places as the place of occurrence of the external cause; K21.9 Gastro-esophageal reflux disease without esophagitis; E55.9 Vitamin D deficiency, unspecified
CPT/HCPCS: 1NSP; 81001; 82436; 90714; 93005; 93010; 96360; 97116-GO; 97161-GP; 97530-GO; J0131; J1644; J7040

== ENCOUNTER 2017-03-10 13:26 | Inpatient (IN) | payer OTHER, MEDICARE ==
[~2017-03-10] VITALS: Ht 170.2 cm; Wt 63.5 kg
[~2017-03-10 13:26] MED LIST changes: -CENTRUM 240 ML240 ML PO; +CENTRUM MU9 MG/15 ML PO; +DULCOLAX10 M1 RC; -DULCOLAX10 MG PR; +EFFEXOR XR75 M1 PO; -EFFEXOR-XR75 MG PO; +FOSAMAX70 M1 PO; +GEODON80 MG PO; +HYZAAR 50-12.51 EACH PO; -KLONOPIN 1MG TAB1 MG PO; +KLONOPIN0.5 M1 PO; -KLONOPIN0.5 MG PO; +KLONOPIN1 M1 PO; -LACTAID3000 U PO; +LACTAID3000 UNI1 PO; +LIPITOR20 M2 PO; -LOPID 600 MG T600 MG PO; +LOPID600 MG PO; -LOPRESSOR 25MG25 MG PO; +LOPRESSOR100 M1 PO; +MEGESTROL ACETA40 MG PO; +MILK OF MA400 MG/52 PO; -MILK OF MAGNESI30 ML PO; +MIRALAX17 G1 PO; -MIRALAX17 GM PO; +NEXIUM40 M1 PO; +SODIUM BICARBO650 M1 PO; -VITAMIN D31 LIQ PO; +VITAMIN D35000 UNIT/ PO; +[UNRECOGNIZED DRUG - OTHER] PO
--- NOTE | 2017-03-10 14:43 | ED GENERAL ADULT ---
History of Present Illness General Chief Complaint: General Adult Stated Complaint: PER AID +VOMITING Source: patient Exam Limitations: no limitations Allergies Coded Allergies: lactose (Mild, VOMITING 05/29/15) phenytoin (UNKNOWN 05/29/15) Reconcile Medications Alendronate Sodium (Fosamax) 70 MG TABLET 1 TAB PO QFRI OSTEOPOROSIS ( Reported) in the morning, at least 30 minutes before the first food, beverage, or medication of the day Atorvastatin Calcium (Lipitor) 20 MG TABLET 1 TAB PO DAILY cholesterol ( Reported) Bisacodyl (Dulcolax) 10 MG SUPP.RECT 1 SUP RC SuMoWeFr CONSTIPATION (Reported ) Carbamazepine 100 MG/5 ML (5 ML) ORAL.SUSP 20 ML PO BID BEHAVIORAL DISTURBANCES (Reported) Cholecalciferol (Vitamin D3) (Vitamin D3) 5,000 UNIT/ML DROPS 6.25 ML PO Q30D VITAMIN SUPPORT (Reported) Clonazepam (Klonopin) 1 MG TABLET 1 TAB PO DAILY BEHAVIOR (Reported) Clonazepam (Klonopin) 0.5 MG TABLET 3 TAB PO QPM BEHAVIOR (Reported) Esomeprazole (Nexium) 40 MG CAPSULE.DR 1 CAP PO DAILY GI (Reported) Gemfibrozil (Lopid) 600 MG TABLET 1 TAB PO BID CHOLESTEROL (Reported) Lactase (Lactaid) 3,000 UNIT TABLET 1 TAB PO DAILY NEEDED PRN ALLERGIES ( Reported) Magnesium Hydroxide (Milk Of Magnesia) 400 MG/5 ML ORAL.SUSP 30 ML PO Q3D CONSTIPATION (Reported) Megestrol Acetate 40 MG TABLET 1 TAB PO DAILY SUPPLEMENT (Reported) Metoprolol Tartrate (Lopressor) 100 MG TABLET 1 TAB PO BID heart (Reported) Multivit-Minerals/Ferrous Gluc (Centrum Multivit-Mineral Liq) 9 MG IRON/15 ML LIQUID 15 ML PO DAILY VITAMIN SUPPORT (Reported) Polyethylene Glycol 3350 (Miralax) 17 GRAM POWD.PACK 1 PAC PO DAILY CONSTIPATION (Reported) dissolve in water Sodium Bicarbonate 650 MG TABLET 1 TAB PO BID SUPPLEMENT (Reported) Venlafaxine HCl (Effexor XR) 75 MG CAP.ER.24H 2 CAP PO BID BEHAVIOR (Reported ) Ziprasidone HCl (Geodon) 80 MG CAPSULE 1 CAP PO QPM BEHAVIOR (Reported) Triage Note: PER AIDE, PT WITH UNSTEADY GAIT AND VOMITING X 1 AT ADULT DAY CARE. Triage Nurses Notes Reviewed? yes Onset: Gradual Duration: day(s): (1) Timing: remote history Injury Environment: home Severity: moderate No Modifying Factors: none HPI: Patient is a 61-year-old male with history of hypertension, mental retardation presenting to the emergency department with AID from the halfway with chief complaint of vomiting 1 and slightly worse in its unsteady gait. According to the aide the patient has unsteady gait to begin with but it was slightly worse after the episode of emesis. Emesis is nonbloody nonbilious. Last bowel movement was yesterday. Patient currently denying any abdominal pain but does report that he had abdominal pain prior to onset of vomiting. Was able to eat after the episode of emesis without continued vomiting. No sick contacts at the halfway. (Radha Mckeon) Vital Signs & Intake/Output Vital Signs & Intake/Output Vital Signs Date Time Temp Pulse Resp B/P B/P Pulse O2 O2 Flow FiO2 Mean Ox Delivery Rate 03/10 1646 97.0 72 16 161/89 100 Room Air 03/10 1334 97.0 77 20 159/93 97 Room Air (Luis VÁZQUEZ,Chris Brunner) Past History Travel History Traveled to [place] past 21 day No Medical History Any Pertinent Medical History? 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 Hx Contributory? No (Radha Mckeon) Review of Systems Review of Systems Constitutional: Reports: no symptoms. Comments Review of systems: See HPI, All other systems negative. Constitutional, no chills fever or weight loss HEENT: No visual changes no sore throat no congestion Cardiovascular: No chest pain ,palpitation , orthopnea or ankle swelling Skin, no jaundice no rashes Respiratory: No dyspnea cough sputum or hemoptysis GI: No DIARRHEA : No dysuria No hematuria Muscle skeletal: no back pain, no neck pain, Neurologic: No numbness INCREASED no confusion Psych: No stress anxiety or depression,. Heme/endocrine: No bruising no bleeding no polyuria or polydipsia Immunology: No splenectomy or history of AIDS (Radha Mckeon) Physical Exam Physical Exam General Appearance: well developed/nourished, no apparent distress, alert, awake , comfortable Comments: Well-developed well-nourished person in no acute distress HEENT: Pupils equally round and reactive to light and accommodation. Nose is atraumatic. MOIST ORAL MUCOSA. Neck: Supple, no lymphadenopathy Back: Nontender, no CVA tenderness. Full range of motion Cardiovascular: Regular rate and rhythms no murmurs rubs or gallops, normal JVP Respiratory: Chest nontender. No respiratory distress.breath sounds diminished to auscultation bilaterally, slight wheeze noted on the left base. Abdomen: Soft, nontender, slightly distended,, no appreciable organomegaly. Hypoactive bowel sounds. No ascites Extremity: No edema, no calf tenderness to palpation, normal and equal pulses. Neuro: Alert oriented x3 Skin: No appreciable rash on exposed skin, skin is warm and dry. SLIGHTLY JAUNDICED APPEARING. Psych: Mood and affect is normal, memory and judgment is normal. Core Measures ACS in differential dx? No CVA/TIA Diagnosis: No Sepsis Present: No Sepsis Focused Exam Completed? No (Radha Mckeon) Progress Differential Diagnoses I considered the following diagnoses in my evaluation of the patient: Small bowel obstruction, gastritis, viral syndrome, dehydration, electrolyte abnormality, biliary colic/obstruction, UTI, PYELONEPHRITIS Plan of Care: Orders Procedure Date/time Status Regular Diet 03/11 B Active Pathway - chart 03/10 1828 Active House Staff 03/10 1828 Active Patient Data 03/10 1828 Active Code Status 03/10 1828 Active Patient Data 03/10 1806 Active Code Status 03/10 1800 Complete ED Holding Orders 03/10 1755 Active Admit to inpatient 03/10 1755 Active Vital Signs 03/10 1755 Active BLOOD CULTURE 03/10 1712 Active Add-on Test (ER Only) 03/10 1656 Active CULTURE,URINE 03/10 1615 Active URINALYSIS 03/10 1520 Complete LIPASE 03/10 1520 Complete COMPREHENSIVE METABOLIC PANEL 03/10 1520 Complete CBC WITHOUT DIFFERENTIAL 03/10 1520 Complete AMYLASE 03/10 1520 Complete VTE Mechanical Prophylaxis 03/10 UNK Active Intake & Output 03/10 UNK Active Current Medications Sig/Rubens Start time Last Medication Dose Stop Time Status Admin Heparin Sodium 5,000 UNIT Q8 03/10 2200 UNVr (Porcine) Acetaminophen 650 MG Q6P PRN 03/10 1830 UNVr (Tylenol) Morphine Sulfate 2 MG Q4P PRN 03/10 1830 UNVr (Morphine) Laboratory Tests 03/10/17 1615: Urinalysis LIGHT H, Urine Color STRAW, Urine Clarity CLDY H, Urine pH 6.5, Ur Specific [place] 1.015, Urine Protein 100 H, Urine Ketones NEG, Urine Nitrite NEG, Urine Bilirubin NEG, Urine Urobilinogen 0.2, Ur Leukocyte Esterase LARGE H , Ur Microscopic SEDIMENT EXAMINED, Urine RBC 3-5, Urine WBC > 75 H, Urine Bacteria PACKD H, Urine Hemoglobin MOD H, Urine Glucose NEG 03/10/17 1610: Anion Gap 18 H, Estimated GFR 24 L, BUN/Creatinine Ratio 25.2 H, Glucose 132 H, Calcium 10.2, Total Bilirubin 0.4, AST 28, ALT 31, Alkaline Phosphatase 157 H, Total Protein 8.7 H, Albumin 5.0, Globulin 3.7, Albumin/Globulin Ratio 1.4, Amylase 154 H, Lipase 548 H, CBC w Diff NO MAN DIFF REQ, RBC 3.71 L, MCV 93.3 , MCH 32.3 H, RDW 13.1, MPV 8.7, Gran % 80.0 H, Lymphocytes % 12.4 L, Monocytes % 7.3, Eosinophils % 0, Basophils % 0.3, Absolute Granulocytes 4.8, Absolute Lymphocytes 0.8 L, Absolute Monocytes 0.4, Absolute Eosinophils 0, Absolute Basophils 0, PUBS MCHC 34.6 Microbiology 03/10 1711 BLOOD: Blood Culture - ORD 03/10 1711 BLOOD: Blood Culture - ORD 03/10 161 URINE ROUT: Urine Culture - RECD Labs show worsening renal failure, dehydration. CT scan essentially unremarkable for any acute process. Patient will be admitted for IV antibiotics , IV hydration for renal failure and UTI. May need urology consultation/ nephrology consultation. Discharge at this time is medically harmful secondary to patient being noncompliant with by mouth intake. Diagnostic Imaging: Viewed by Me: Radiology Read. Discussed w/RAD: Radiology Read. Radiology Impression: PATIENT: BRUNO GARCIA PRESENT AGE: 61 PATIENT ACCOUNT NO: [id number] : 59 LOCATION: ER ORDERING PHYSICIAN: Radha AUGUSTIN SERVICE DATE: 03/10/17 EXAM TYPE: RAD - XRY-CHEST XRAY, TWO VIEWS EXAMINATION: XR CHEST CLINICAL INFORMATION: Wheeze after vomiting. Assess for aspiration. COMPARISON: Chest x-ray 12/14/2014. TECHNIQUE: Frontal and lateral views of the chest were obtained. FINDINGS: The patient is rotated RPO The lung mann are well expanded and appear clear bilaterally. The cardiac silhouette is normal. There are no pleural effusions or pneumothorax. The central pulmonary vasculature is normal. The hilar regions appear normal. There are mild multilevel degenerative changes in the thoracic spine. IMPRESSION: 1. There are no acute cardiopulmonary findings. DICTATED BY: Carlos Lockhart MD DATE/TIME DICTATED:03/10/171552 WELL TESTER:LOKESH DATE/TIME TRANSCRIBED:03/10/171552 CONFIDENTIAL, DO NOT COPY WITHOUT APPROPRIATE AUTHORIZATION. <Electronically signed in Other Vendor System> , ATIENT: BRUNO GARCIA PRESENT AGE: 61 PATIENT ACCOUNT NO: [id number] : 59 LOCATION: [facility] ORDERING PHYSICIAN: Radha AUGUSTIN SERVICE DATE: 03/10/17 EXAM TYPE: RAD - XRY-ABDOMEN -SINGLE VIEW EXAMINATION: XR ABDOMEN CLINICAL INDICATION: Abdominal distention. Vomiting. COMPARISON: Abdomen 12/14/2014 CT abdomen pelvis 12/25/2014. CT scan abdomen pelvis 12/31/2015 TECHNIQUE: AP view of the abdomen. 3:37 PM FINDINGS: Moderate to large volume of bowel gas and moderate volume of stool. This is similar to the CAT scan of 12/30/2016. Most of the bowel gas in the right colon and stomach. Most of the stool in the ascending colon and descending colon. Nonobstructive bowel pattern. No radiopaque urinary calculus. IMPRESSION: Nonobstructive bowel pattern. No acute abnormality. DICTATED BY: Freddie Hobbs MD DATE/TIME DICTATED:03/10/171554 WELL TESTER:LOKESH DATE/TIME TRANSCRIBED:03/10/171554 CONFIDENTIAL, DO NOT COPY WITHOUT APPROPRIATE AUTHORIZATION. <Electronically signed in Other Vendor System> SIGNED BY: Freddie Hobbs MD 03/10/17 1601 Initial ED EKG: none (Radha Mckeon) Departure Departure Time of Disposition: 1801 Condition: Stable Clinical Impression Primary Impression: Renal failure (ARF), acute on chronic Qualifiers: Acute renal failure type: unspecified Chronic kidney disease stage: unspecified stage Qualified Codes: N17.9 - Acute kidney failure, unspecified; N18.9 - Chronic kidney disease, unspecified Referrals: Jd Douglas MD (PCP/Family) Departure Forms: Customer Survey General Discharge Information (Radha Mckeon) Departure Disposition: STILL A PATIENT Admission Note Spoke With: Jd Douglas MD Documentation of Exam: Documentation of any treatments & extenuating circumstances including Concerns Regarding Discharge (functional status, medication knowledge or non-compliance, living conditions, etc.) that warrant an admission rather than observation: [IV FLUIDS,RENAL CONSULT, HOLD RENAL TOXIC MEDS] PA/ICE CREAM CHEF Co-Sign Statement Statement: ED Attending supervision documentation- [X] I saw and evaluated the patient. I have also reviewed all the pertinent lab results and diagnostic results. I agree with the findings and the plan of care as documented in the PA's/ICE CREAM CHEF's documentation. [X] I have reviewed the ED Record and agree with the PA's/ICE CREAM CHEF's documentation. [] Additions or exceptions (if any) to the PAs/ICE CREAM CHEF's note and plan are summarized below: [Patient to be admitted for acute on chronic renal insufficiency. Patient will need IV hydration. Renal consultation.] (Luis VÁZQUEZ,Chris Brunner) Critical Care Note Critical Care Note Critical Care Time: non-applicable (Radha Mckeon)
--- NOTE | 2017-03-10 16:01 | RADIOLOGY REPORT ---
EXAMINATION: XR ABDOMEN CLINICAL INDICATION: Abdominal distention. Vomiting. COMPARISON: Abdomen 12/14/2014 CT abdomen pelvis 12/25/2014. CT scan abdomen pelvis 12/31/2015 TECHNIQUE: AP view of the abdomen. 3:37 PM FINDINGS: Moderate to large volume of bowel gas and moderate volume of stool. This is similar to the CAT scan of 12/30/2016. Most of the bowel gas in the right colon and stomach. Most of the stool in the ascending colon and descending colon. Nonobstructive bowel pattern. No radiopaque urinary calculus. IMPRESSION: Nonobstructive bowel pattern. No acute abnormality.
--- NOTE | 2017-03-10 16:04 | RADIOLOGY REPORT ---
EXAMINATION: XR CHEST CLINICAL INFORMATION: Wheeze after vomiting. Assess for aspiration. COMPARISON: Chest x-ray 12/14/2014. TECHNIQUE: Frontal and lateral views of the chest were obtained. FINDINGS: The patient is rotated RPO The lung mann are well expanded and appear clear bilaterally. The cardiac silhouette is normal. There are no pleural effusions or pneumothorax. The central pulmonary vasculature is normal. The hilar regions appear normal. There are mild multilevel degenerative changes in the thoracic spine. IMPRESSION: 1. There are no acute cardiopulmonary findings.
[2017-03-10 16:23] LABS: ABSOLUTE BASOPHIL COUNT 0 /CUMM (0.0-0.2); ABSOLUTE EOSINOPHIL COUNT 0 /CUMM (0.0-0.7); ABSOLUTE GRANULOCYTE CT 4.8 /CUMM (1.4-6.5); ABSOLUTE LYMPH COUNT 0.8 /CUMM (1.2-3.4); ABSOLUTE MONOCYTE COUNT 0.4 /CUMM (0.10-0.60); BASOPHIL % 0.3 % (0.0-2.0); EOSINOPHIL % 0 % (0-5); HEMATOCRIT 34.7 % (42-52); MEAN CORPUSCULAR HGB 32.3 PG (27.0-31.0); MEAN CORPUSCULAR HGB CONC 34.6 G/DL (33.0-37.0); MEAN CORPUSCULAR VOLUME 93.3 FL (80.0-94.0); MEAN PLATELET VOLUME 8.7 FL (7.4-10.4); PLATELET COUNT 236 /CUMM (130-400); RBC DISTRIBUTION WIDTH 13.1 % (11.5-14.5); RED BLOOD CELL CT 3.71 /CUMM (4.70-6.10); WHITE BLOOD CELL COUNT 6.1 /CUMM (4.8-10.8)
--- NOTE | 2017-03-10 17:45 | CT SCAN REPORT ---
EXAMINATION: CT ABDOMEN AND PELVIS WITHOUT CONTRAST CLINICAL INFORMATION: Vomiting. Jaundice. COMPARISON: 12/31/2015. TECHNIQUE: Contiguous axial thin section helical images of the abdomen and pelvis were performed without oral or IV contrast. The data set was reformatted in the coronal and sagittal planes and reviewed on an independent workstation. DLP: 273 mGy-cm. FINDINGS: There is a 3 mm nodule within the left lower lobe on image 32/728. The visualized lung bases are otherwise clear. The visualized portions of the heart are unremarkable. There is a small hiatal hernia. The liver is of normal size and attenuation without focal lesions nor intrahepatic biliary ductal dilation. There is a 17 mm calculus within the gallbladder lumen. There is no wall thickening or discernible pericholecystic fluid. The spleen, pancreas, adrenal glands are unremarkable. Both kidneys are of normal size and attenuation without hydronephrosis or nephrolithiasis. There is no abdominal free fluid. There is neither mesenteric nor retroperitoneal lymphadenopathy. Normal unopacified loops of small and large bowel are identified. There is no pelvic free fluid. Urinary bladder is partially filled. There is equivocal diffuse bladder wall thickening. There is neither pelvic nor inguinal lymphadenopathy. The right testicle is present within the inguinal canal. Bone windows: Neither sclerotic nor lytic bone lesions are identified. IMPRESSION: Equivocal diffuse bladder wall thickening. This is nonspecific, but consider correlation with urinalysis. No abdominal or pelvic free fluid. Cholelithiasis without evidence of cholecystitis. Right testicle present within the inguinal canal. Small hiatal hernia. 3 mm left lower lobe pulmonary nodule. Various management parameters for solitary pulmonary nodules are in the literature. According to the Fleischner Society, recommendations for pulmonary nodules are as follows: Nodule size < or = to 4 mm in LOW RISK PATIENTS: No follow up needed. Nodule size < or = to 4 mm in HIGH RISK PATIENTS: Follow up CT at 12 months; if unchanged, no further follow up. Nodule size > 4-6 mm in LOW RISK PATIENTS: Follow up CT at 12 months; if unchanged, no further follow up. Nodule size > 4-6 mm in HIGH RISK PATIENTS: Initial follow up CT at 6-12 months, then at 18-24 months if no change. Nodule size > 6-8 mm in LOW RISK PATIENTS: Initial follow up CT at 6-12 months, then at 18-24 months if no change. Nodule size > 6-8 mm in HIGH RISK PATIENTS: Initial follow up CT at 3-6 months, then 9-12 months and 24 months if no change. Nodule size > 8 mm in LOW RISK PATIENTS: Follow up CT at around 3, 9, and 24 months, dynamic contrast-enhanced CT, PET, and/or biopsy. Nodule size > 8 mm in HIGH RISK PATIENTS: Same as for low-risk patients.
--- NOTE | 2017-03-10 18:13 | History & Physical ---
See Addendum Aurelio Mendenhall 03/10/171811: General Information and HPI MD Statement: I have seen and personally examined BRUNO GARCIA and documented this H&P. The patient is a 61 year old M who presented with a patient stated chief complaint of generalized weakness and vomiting with frquency of urine. []. Source of Information: patient, old records, EMS, aide Exam Limitations: poor historian History of Present Illness: 61 YO M resident of a [facility] with significant PMH of mental retardation, hypertension, border line DM not on any medication, multiple falls, CKD stage III, Passive Aggressive Personality disorder and hyperlipidemia who was [facility] from [facility] with aid presented with generalized weakness, vomiting and frequency of urination. Patient having mental retardation but he is able to reply to the questions and following commands. His aide also gave information about him. She reported that the patient has one episode of vomiting this afternoon and after that he has unstable gait. She reported that the vomitus was nonbloody and [id number]. She also reported that patient has abdominal pain but patient denied it. She reported that patient is not feeling good for last couple of days and he has frequency of urination for last couple of days. She also reported that patient is taking nectar thick diet with pured thick liquids to prevent aspiration. According to his aide patient is not eating well for last couple of days. We also spoke to the nursing staff at the [facility]. She reported that patient is following Wayne Jones MD for his kidney issues and his following Dr. Alaniz for his GI screening and routine examinations. Patient is regularly following Dr. Douglas who is his PCP. His aide also reported that he had complain of malaise last week and had two falls that was unusual for him. Patient was admitted last time increased from hospital in April 2016 when he presented with witnessed fall. Patient has history of borderline diabetes but he is not taking any medication for it. Patient denied any chest pain, short of breath, palpitation, chills, fever, ill contact, abdominal pain, lightheadedness and dysuria. ED course: Vitals:temperature 97.0, pulse 77, respiratory rate 20, blood pressure up to 161 /89, satting 97-100% on room air. UA is cloudy with large leukocyte esterase, greater than 75 white blood cell, packed bacteria and moderate hemoglobin. Labs: wbc count 6.1, Hb 12, Hct 34.7, platelet 236, potassium 3.6, chloride 95, bicarbonate 28, BUN 68, creatinine 2.7, An anion gap of 18. Alkaline phosphatase 157. Amylase 154, lipase 548. BUN/Cr ratio 25.2 IV N/S was started in ED to hydrate the patient. Allergies/Medications Allergies: Coded Allergies: lactose (Mild, VOMITING 05/29/15) phenytoin (UNKNOWN 05/29/15) Home Med list Alendronate Sodium (Fosamax) 70 MG TABLET 1 TAB PO QFRI OSTEOPOROSIS ( Reported) in the morning, at least 30 minutes before the first food, beverage, or medication of the day Atorvastatin Calcium (Lipitor) 20 MG TABLET 1 TAB PO DAILY cholesterol ( Reported) Bisacodyl (Dulcolax) 10 MG SUPP.RECT 1 SUP RC SuMoWeFr CONSTIPATION (Reported ) Carbamazepine 100 MG/5 ML (5 ML) ORAL.SUSP 20 ML PO BID BEHAVIORAL DISTURBANCES (Reported) Cholecalciferol (Vitamin D3) (Vitamin D3) 5,000 UNIT/ML DROPS 6.25 ML PO Q30D VITAMIN SUPPORT (Reported) Clonazepam (Klonopin) 1 MG TABLET 1 TAB PO DAILY BEHAVIOR (Reported) Clonazepam (Klonopin) 0.5 MG TABLET 3 TAB PO QPM BEHAVIOR (Reported) Esomeprazole (Nexium) 40 MG CAPSULE.DR 1 CAP PO DAILY GI (Reported) Gemfibrozil (Lopid) 600 MG TABLET 1 TAB PO BID CHOLESTEROL (Reported) Lactase (Lactaid) 3,000 UNIT TABLET 1 TAB PO DAILY NEEDED PRN ALLERGIES ( Reported) Magnesium Hydroxide (Milk Of Magnesia) 400 MG/5 ML ORAL.SUSP 30 ML PO Q3D CONSTIPATION (Reported) Megestrol Acetate 40 MG TABLET 1 TAB PO DAILY SUPPLEMENT (Reported) Metoprolol Tartrate (Lopressor) 100 MG TABLET 1 TAB PO BID heart (Reported) Multivit-Minerals/Ferrous Gluc (Centrum Multivit-Mineral Liq) 9 MG IRON/15 ML LIQUID 15 ML PO DAILY VITAMIN SUPPORT (Reported) Polyethylene Glycol 3350 (Miralax) 17 GRAM POWD.PACK 1 PAC PO DAILY CONSTIPATION (Reported) dissolve in water Sodium Bicarbonate 650 MG TABLET 1 TAB PO BID SUPPLEMENT (Reported) Venlafaxine HCl (Effexor XR) 75 MG CAP.ER.24H 2 CAP PO BID BEHAVIOR (Reported ) Ziprasidone HCl (Geodon) 80 MG CAPSULE 1 CAP PO QPM BEHAVIOR (Reported) Past History Travel History Traveled to [place] past 21 day No Medical History Neurological: MENTAL RETARDATION EENT: NONE Cardiovascular: hypertension, hyperlipidemia Respiratory: NONE Gastrointestinal: H-PYLORI Hepatic: NONE Renal: chronic kidney disease, UTI'S, STAGE 3 Musculoskeletal: NONE Psychiatric: AFFECTIVE DISORDER, PASSIVE/AGRESSIVE Endocrine: NONE Blood Disorders: NONE Cancer(s): NONE [employer]/Reproductive: NONE History of MRSA: No History of VRE: No History of CDIFF: No Influenza Vaccine: 12/16/15 Tetanus Vaccine: 04/12/16 Surgical History Surgical History: N Past Family/Social History Family History Relations & Conditions if any BROTHER (Prostate cancer Hypertension). Psychosocial History Primary Language: Slovenian ETOH Use: denies use Illicit Drug Use: denies illicit drug use Functional Ability ADLs Independent: dressing, eating, toileting, bathing. Ambulation: independent IADLs Needs Assist: shopping, housework, finances, food prep, telephone, transportation, medication admin. Review of Systems Review of Systems Constitutional: Reports: weakness. EENTM: Reports: see HPI. Cardiovascular: Reports: no symptoms. Respiratory: Reports: no symptoms. GI: Reports: vomiting. Genitourinary: Reports: frequency. Musculoskeletal: Reports: no symptoms. Neurological/Psychological: Reports: no symptoms. Exam & Diagnostic Data Last 24 Hrs of Vital Signs/I&O Vital Signs Date Time Temp Pulse Resp B/P B/P Pulse O2 O2 Flow FiO2 Mean Ox Delivery Rate 03/10 1646 97.0 72 16 161/89 100 Room Air 03/10 1334 97.0 77 20 159/93 97 Room Air Intake & Output 03/10 1600 03/10 0800 03/10 0000 Intake Total Output Total Balance Patient 165 lb Weight Weight Reported by Patient Measurement Method Physical Exam General Appearance Alert, Cooperative, No Acute Distress Skin Temp/Moisture Exam: Warm/Dry HEENT Atraumatic, PERRLA, EOMI Neck Supple Cardiovascular Normal S1, Normal S2 Lungs Decreased breath sounds b/l Abdomen Soft, No Tenderness Neurological Normal Speech, Strength at 5/5 X4 Ext, Normal Tone, Sensation Intact Extremities No Edema Last 24 Hrs of Labs/Luis: Laboratory Tests 03/10/17 1615: Urinalysis LIGHT H, Urine Color STRAW, Urine Clarity CLDY H, Urine pH 6.5, Ur Specific [place] 1.015, Urine Protein 100 H, Urine Ketones NEG, Urine Nitrite NEG, Urine Bilirubin NEG, Urine Urobilinogen 0.2, Ur Leukocyte Esterase LARGE H , Ur Microscopic SEDIMENT EXAMINED, Urine RBC 3-5, Urine WBC > 75 H, Urine Bacteria PACKD H, Urine Hemoglobin MOD H, Urine Glucose NEG 03/10/17 1610: Anion Gap 18 H, Estimated GFR 24 L, BUN/Creatinine Ratio 25.2 H, Glucose 132 H, Calcium 10.2, Total Bilirubin 0.4, AST 28, ALT 31, Alkaline Phosphatase 157 H, Total Protein 8.7 H, Albumin 5.0, Globulin 3.7, Albumin/Globulin Ratio 1.4, Amylase 154 H, Lipase 548 H, CBC w Diff NO MAN DIFF REQ, RBC 3.71 L, MCV 93.3 , MCH 32.3 H, RDW 13.1, MPV 8.7, Gran % 80.0 H, Lymphocytes % 12.4 L, Monocytes % 7.3, Eosinophils % 0, Basophils % 0.3, Absolute Granulocytes 4.8, Absolute Lymphocytes 0.8 L, Absolute Monocytes 0.4, Absolute Eosinophils 0, Absolute Basophils 0, PUBS MCHC 34.6 Microbiology 03/10 1830 BLOOD: Blood Culture - RECD 03/10 1712 BLOOD: Blood Culture - ORD 03/10 1615 URINE ROUT: Urine Culture - RECD Assessment/Plan Assessment: 61 YO M resident of a [facility] with significant PMH of mental retardation, hypertension, border line DM not on any medication, multiple falls, CKD stage III, Passive Aggressive Personality disorder and hyperlipidemia who was [facility] from [facility] with aid presented with generalized weakness, vomiting and frequency of urination. We will admit the patient on general medicine floor considering his dehydration and acute on chronic kidney injury. UTI: -Patient's UA is dirty and showing negative nitite and positive esterase with high count of wbc although patient is asymptomatic. -we will follow the urine cultures. -we will treat him for ceftriaxone for 3-5 days. Acute on chronic kidney injury: -His last creatinine is 1.8 in Apr 2016 and now it's 2.7 -Possibly due to dehydration due to low oral intake and vomiting. -We will monitor input and output. -No nephrotoxic medications. -IV hydration -We will monitor his kidney functions daily. -We will continue his sodium bicarbonate. -Anion gap acidosis could be possible due to chronic due to chronic kidney injury. Vomiting: - Any acute intraabdominal pathology was ruled out with normal x-ray abdoment and CT scan abdomen. Vomiting could be due to food posioning and possibility of pancreatitis is ruled out with normal pancrease on CT scan abdoment although lipase is 548. No tenderness of abdomen on examination. -Continue nector thick and pureed diet. -We will watch for the symptoms. -Incidental findings on CT scan are hiatal hernia, cholelithiasis, pulmonary nodule and right testicle is in inguinal canal. -We will continue omeprazole as he was taking at home. -Zofran iv PRN for vomiting. -Gentle iv hydration. We will encourage the patient to take oral diet as tolerated. HTN AND HLD: -We will continue his home medications. BPH: -We will continue his home medications. Psych meds: -We will continue all his psych meds. DVT prohylaxis: Mechanical and s/c heparin Code status: Full code As Ranked By This Provider Problem List: 1. UTI (urinary tract infection) 2. [id number] kidney injury 3. Dehydration Core Measures/Misc (11/22) Acute Coronary Syndrome ACS Diagnosis: No Congestive Heart Failure Congestive Heart Failure Diagnosis No Cerebrovascular Accident CVA/TIA Diagnosis: No VTE (View Protocol) VTE Risk Factors Age>40 No Mechanical VTE Prophylaxis d/t N/A MechProphylax Ordered No VTE Pharm Prophylaxis d/t NA PharmProphylax ordered Sepsis (View protocol) Sepsis Present: No Nelly Spaulding MD 03/10/173: Resident Review Statement Resident Statement: examined this patient, discussed with senior insight manager international, agreed with senior insight manager international Other Findings: This is a 61-year-old male with past medical history significant for hypertension, mental retardation from [facility]ci, hyperlipidemia, H. pylori, ?CK D, who was sent in by [facility] for vomiting 1. Patient is able to answer yes or no questions but is otherwise unable to provide detailed history. Most of the history is obtained from the aide at bedside. She states that today during his afternoon activities patient had one episode of vomiting. It was clear. She thinks that it may have been associated with abdominal pain during the episode but patient has not complained of such before or after the episode. No other acute abnormalities noted today in vitals or behavior. However, last week he did complain of malaise and had 2 falls which is unusual for him. Patient is followed by Dr. Alaniz for routine GI screening and a history of H. pylori, apparently he is also followed by Wayne Jones MD for his renal function. Patient denies any headache, nausea, vomiting, diarrhea, chest pain, abdominal pain, shortness of breath, dysuria. Physical exam: HEENT: Pupils equal and reactive. EOMI Cardiovascular: Nml s1/s2; no murmurs Skin: no erythema, rash or wounds present. Respiratory:CTAB, some nasal congestion noted GI: BSX4, distended abdomen No tenderness on palpation. EXT: No skin changes in bilat LE. Assessment: This is a 61-year-old male with past medical history significant for hypertension, hyperlipidemia, CK D, H. pylori, mental retardation who lives in a [facility]ci, who comes in for chief complaint of vomiting 1 but found to have unremarkable GI workup. UA is suggestive of infection, but he is afebrile without white count. ED workup shows: Vitals: 97.0, heart rate 77, respiratory rate 20, blood pressure up to 161/89, satting 97-100% on room air. UA is cloudy with large leukocyte esterase, greater than 75 white blood cell, packed bacteria and moderate hemoglobin. C BC shows white count 6.1, hemoglobin 12, hematocrit 34.7, platelet 236. BEP shows potassium 3.6, chloride 95, bicarbonate 28, BUN 68, creatinine 2.7. An anion gap of 18. Alkaline phosphatase 157. Amylase 154, lipase 548. No acute pathology noted abdominal x-ray No acute pathology noted and chest x-ray CT shows 3 mm nodule on left lower lobe, 17 mm calculus in gallbladder lumen, right testicle in the inguinal canal - Plan: UTI: Given the large leukocyte esterase, pyuria, and packed bacteria there is concern for UTI in this patient. He is afebrile without white count. * Ceftriaxone for 3 days * Follow-up UA * Follow-up UC Vomiting: The abdominal CAT scan and the abdominal x-ray are not indicative of any acute pathology. A denies any other sick residents at fci. Patient only had one episode of vomiting. Could be secondary to food poisoning. His alkaline phosphatase is 157, his amylase is 154, his lipase is 548. He does not meet criteria for pancreatitis. He does not have tenderness in his abdomen. He is on a completely liquid diet of nectar thick and pure. * Continue nectar thick and pured diet * Monitor ins and outs * Serial abdominal exam and monitor for further GI symptoms. Pt asymptomatic for >8hrs. Anion gap metabolic acidosis: Patient has gap of 18 and bicarbonate 28. Chloride 95. DDX:? starvation as pt does not eat solid diet and vomited. He also has CKD with Cr today at 2.7. Blood sugar makes DKA less likely. * Monitor BEP * hydrate gently * If con't elevate consider checking lactic acid or ketones in urine. CKD: Cr today at 2.7. In Apr 2016 at 1.8. Records show that it has been as high as 2.8 in May 2015. Likely some component of pre-renal given his vomiting and ddecreased PO intake. Pt cannot take thin liquids. * Monitor renal function * If does not resolve with fluids then check renal ultra sound and urine lytes BPH: Continue Fosamax Hyperlipidemia: continue Lipitor and gemfibrozil Continue psych meds: * Con't home regimen of carbamazepine, Klonopin, Venlafaxine, Ziprasidone Continue Other meds: * Continue Megace, bicarbonate 650 mg twice a day. Incidental Findings: CT shows 3 mm nodule on left lower lobe, 17 mm calculus in gallbladder lumen, right testicle in the inguinal canal [facility] [place]/puree lactose free diet
--- NOTE | 2017-03-10 18:38 | Admission Certification ---
Admission Certification Certification Statement - As attending physician, I certify that at the time of - admission, based on clinical presentation, severity of - symptoms, need for further diagnostic testing and - therapeutic interventions, and risk of adverse outcomes - without in-hospital treatment, in my clinical assessment, - this patient requires an acute hospital stay for a minimum - of two nights or longer. I have also considered psychsocial - factors such as support system, advanced age, financial - issues, cognitive issues, and failed out-patient treatments, - past re-admission history, safety of patient, and lack of - compliance as applicable. Specific rationale supporting this admission is: Vomiting diarrhea acute on chronic renal failure and a possible urinary tract infection
--- NOTE | 2017-03-10 18:42 | PN- Att Addend ---
Attending Addendum Attending Brief Note 61-year-old white male resident of a senior care, with mental disabilities. Per aid patient hasn't been acting himself for the last few days recently has had diarrhea and vomited eating well and comes to the emergency room found to be in acute renal insufficiency on chronic renal insufficiency, a dirty urine and dehydration. All cultures were obtained. Start antibiotic therapy for presumed urinary tract infection in gentle hydration and monitor labs. Laboratory Tests 03/10 03/10 1615 1610 Chemistry Sodium (137 - 145 mmol/L) 141 Potassium (3.5 - 5.1 mmol/L) 3.6 Chloride (98 - 107 mmol/L) 95 L Carbon Dioxide (22 - 30 mmol/L) 28 Anion Gap (5 - 16) 18 H BUN (9 - 20 mg/dL) 68 H Creatinine (0.7 - 1.2 mg/dL) 2.7 H Estimated GFR (>60 ml/min) 24 L BUN/Creatinine Ratio (7 - 25 %) 25.2 H Glucose (65 - 99 mg/dL) 132 H Calcium (8.4 - 10.2 mg/dL) 10.2 Total Bilirubin (0.2 - 1.3 mg/dL) 0.4 AST (17 - 59 U/L) 28 ALT (21 - 72 U/L) 31 Alkaline Phosphatase (< 127 U/L) 157 H Total Protein (6.3 - 8.2 g/dL) 8.7 H Albumin (3.5 - 5.0 g/dL) 5.0 Globulin (1.9 - 4.2 gm/dL) 3.7 Albumin/Globulin Ratio (1.1 - 2.2 %) 1.4 Amylase (30 - 110 U/L) 154 H Lipase (23 - 300 U/L) 548 H Hematology CBC w Diff NO MAN DIFF REQ WBC (4.8 - 10.8 /CUMM) 6.1 RBC (4.70 - 6.10 /CUMM) 3.71 L Hgb (14.0 - 18.0 G/DL) 12.0 L Hct (42 - 52 %) 34.7 L MCV (80.0 - 94.0 FL) 93.3 MCH (27.0 - 31.0 PG) 32.3 H RDW (11.5 - 14.5 %) 13.1 Plt Count (130 - 400 /CUMM) 236 MPV (7.4 - 10.4 FL) 8.7 Gran % (42.2 - 75.2 %) 80.0 H Lymphocytes % (20.5 - 51.1 %) 12.4 L Monocytes % (1.7 - 9.3 %) 7.3 Eosinophils % (0 - 5 %) 0 Basophils % (0.0 - 2.0 %) 0.3 Absolute Granulocytes (1.4 - 6.5 /CUMM) 4.8 Absolute Lymphocytes (1.2 - 3.4 /CUMM) 0.8 L Absolute Monocytes (0.10 - 0.60 /CUMM) 0.4 Absolute Eosinophils (0.0 - 0.7 /CUMM) 0 Absolute Basophils (0.0 - 0.2 /CUMM) 0 PUBS MCHC (33.0 - 37.0 G/DL) 34.6 Urines Urinalysis LIGHT H Urine Color (YEL,AMB,STR) STRAW Urine Clarity (CLEAR) CLDY H Urine pH (5.0 - 8.0) 6.5 Ur Specific [place] (1.001 - 1.035) 1.015 Urine Protein (NEG,<30 MG/DL) 100 H Urine Ketones (NEG) NEG Urine Nitrite (NEG) NEG Urine Bilirubin (NEG) NEG Urine Urobilinogen (0.1 - 1.0 EU/dl) 0.2 Ur Leukocyte Esterase (NEG) LARGE H Ur Microscopic SEDIMENT EXAMINED Urine RBC (0 - 5 /HPF) 3-5 Urine WBC (0 - 2 /HPF) > 75 H Urine Bacteria (NEG/NONE) PACKD H Urine Hemoglobin (NEG) MOD H Urine Glucose (N MG/DL) NEG
[2017-03-10 23:41] VITALS: BP 180/88
[2017-03-11 01:04] VITALS: BP 160/78
[2017-03-11 06:30] VITALS: BP 162/80
--- NOTE | 2017-03-11 07:41 | PN- Housestaff ---
See Addendum Subjective Follow-up For: UTI Acute on chronic kidney injury Deydration Hypernatremia Subjective: No overnight events. Patient remained afebrile overnight. Seen and examined this morning. Patient denied any chest pain, short of breath, nausea, vomiting, chills, fever, abdominal pain dysuria. Patient is tolerating food he is on nectar thickened puree take diet. One urine culture is positive with gram +ve cocci. Review of Systems Constitutional: Reports: no symptoms. EENTM: Reports: no symptoms. Cardiovascular: Reports: no symptoms. Respiratory: Reports: no symptoms. Gastrointestinal: Reports: no symptoms. Genitourinary: Reports: no symptoms. Musculoskeletal: Reports: no symptoms. Neurological/Psychological: Reports: no symptoms. Objective Last 24 Hrs of Vital Signs/I&O Vital Signs Date Time Temp Pulse Resp B/P B/P Pulse O2 O2 Flow FiO2 Mean Ox Delivery Rate 03/11 1023 82 140/70 03/11 0630 98.3 69 18 162/80 98 Room Air 03/11 0104 160/78 03/10 2343 79 180/88 03/10 2341 97.7 79 20 180/88 100 Room Air 03/10 2033 97.8 73 18 190/98 100 Room Air 03/10 1646 97.0 72 16 161/89 100 Room Air 03/10 1602 97 Room Air 03/10 1334 97.0 77 20 159/93 97 Room Air Intake & Output 03/11 1600 03/11 0800 03/11 0000 Intake Total 765 Output Total 800 300 Balance -35 -300 Intake, IV 525 Intake, Oral 240 Output, Urine 800 300 Patient 140 lb Weight Weight Estimated Measurement Method Physical Exam General Appearance: Alert, Oriented X3, Cooperative, No Acute Distress Skin Temp/Moisture Exam: Warm/Dry HEENT: Atraumatic, PERRLA, EOMI Neck: Supple Cardiovascular: Normal S1, Normal S2 Lungs: Clear to Auscultation Abdomen: Soft, No Tenderness Neurological: Normal Speech, Strength at 5/5 X4 Ext, Normal Tone, Sensation Intact Extremities: No Edema Assessment/Plan Assessment: 61 YO M resident of a shelter with significant PMH of mental retardation, hypertension, border line DM not on any medication, multiple falls, CKD stage III, Passive Aggressive Personality disorder and hyperlipidemia who was sent from shelter with aid presented with generalized weakness, vomiting and frequency of urination. We will admit the patient on general medicine floor considering his dehydration and acute on chronic kidney injury. UTI: -Patient's UA is dirty and showing negative nitite and positive esterase with high count of wbc although patient is asymptomatic. previously i was positive with E.COLI in old record. -One urine culture is positive with gram +ve cocci -we will follow the urine cultures. -we will discontinue the ceftriaxone and start unasyn 1gm Q6 to cover enterococci and follow the culture and sensitivities and change the antibiotics accordingly. Acute on chronic kidney injury: -His last creatinine is 1.8 in Apr 2016 and now it's 2.7. -Possibly due to dehydration due to low oral intake and vomiting. -We will monitor input and output. -No nephrotoxic medications. -IV hydration was discontinued considering his hypernatremia and order fluids according to his sodium level later. -We will monitor his kidney functions daily. -We will continue his sodium bicarbonate. -Anion gap acidosis could be possible due to chronic due to chronic kidney injury. Hypernatremia: -possibly due to hypovolemic hyponatremia due to excessive urination and less oral intake of free water as he is on puree and nector thick diet. -sodium level is 150 w will discontinue the N/S and check the BEP in afternoon if its still high we will start D5W considering his 2.5L free water deficit. Vomiting: - Any acute intraabdominal pathology was ruled out with normal x-ray abdoment and CT scan abdomen. Vomiting could be due to food posioning and possibility of pancreatitis is ruled out with normal pancrease on CT scan abdoment although lipase is 548. No tenderness of abdomen on examination. -Continue nector thick and pureed diet. -We will watch for the symptoms. -Incidental findings on CT scan are hiatal hernia, cholelithiasis, pulmonary nodule and right testicle is in inguinal canal. -We will continue omeprazole as he was taking at home. -Zofran iv PRN for vomiting. -Gentle iv hydration. We will encourage the patient to take oral diet as tolerated. HTN AND HLD: -We will continue his home medications. BPH: -We will continue his home medications. Psych meds: -We will continue all his psych meds. DVT prohylaxis: Mechanical and s/c heparin Code status: Full code Problem List: 1. [id number] kidney injury 2. Dehydration 3. UTI (urinary tract infection) 4. Hypernatremia Pain Ratin Pain Location: none Pain Goal: Remain pain free Pain Plan: tylenol for mild pain Tomorrow's Labs & Rationales: bep
--- NOTE | 2017-03-11 12:13 | PN- Att Addend ---
Attending Addendum Attending Brief Note Patient laying in bed, looks a little uncomfortable. His vital signs are stable blood pressure was a little elevated last evening, better today is afebrile no new changes on physical. Today's basic metabolic profile is pending. To continue present treatment 24 TOTALS 03/11 0000 03/10 0000 Intake Total Output Total 300 Balance -300 Output, Urine 300 Patient 165 lb Weight Weight Reported by Patient Measurement Method Current Medications Sig/Rubens Start time Last Medication Dose Route Stop Time Status Admin Acetaminophen 650 MG Q6P PRN 03/10 1830 AC PO Atorvastatin Calcium 20 MG 1700 03/11 1700 AC PO Carbamazepine 400 MG BID ONE 03/10 2300 DC 03/11 PO 03/10 2301 0202 Ceftriaxone Sodium 1,000 MG DAILY 03/11 1000 AC 03/11 IV 1030 Ceftriaxone Sodium 0 .STK-MED ONE 03/10 1920 DC .ROUTE Ceftriaxone Sodium 1,000 MG ONCE ONE 03/10 1700 DC 03/10 IV 03/10 1701 1929 Clonazepam 1 MG DAILY 03/11 1000 AC 03/11 PO 03/18 0959 1048 Clonazepam 1.5 MG .STK-MED ONE 03/11 0159 DC PO 03/11 0200 Clonazepam 1.5 MG QPM 03/10 2200 AC 03/11 PO 03/17 2159 0202 Gemfibrozil 600 MG BID 03/10 2200 AC 03/11 PO 1023 Heparin Sodium 5,000 UNIT Q8 03/10 2200 AC 03/11 (Porcine) SC 0541 Megestrol Acetate 40 MG DAILY 03/11 1000 AC 03/11 PO 1026 Metoprolol Tartrate 100 MG BID 03/10 2200 AC 03/11 PO 1023 Morphine Sulfate 2 MG Q4P PRN 03/10 1830 AC IV Omeprazole 40 MG DAILY AC 03/11 0700 AC 03/11 PO 0541 Polyethylene Glycol 17 GM DAILY 03/11 1000 AC 03/11 PO 1019 Sodium Bicarbonate 650 MG BID 03/10 2200 AC 03/11 PO 1026 Sodium Chloride 1,000 ML Q13H 03/10 1900 AC 03/11 IV 03/11 2059 0745 Sodium Chloride 1,000 ML BOLUS ONE 03/10 1715 DC 03/10 IV 03/10 1814 1801 Venlafaxine HCl 150 MG BID 03/10 2200 AC 03/11 PO 1020 Ziprasidone 80 MG QPM 03/10 2200 AC 03/11 PO 0203 Laboratory Tests 03/11/17 1111: Sodium Pending, Potassium Pending, Chloride Pending, Carbon Dioxide Pending, Anion Gap Pending, BUN Pending, Creatinine Pending, BUN/Creatinine Ratio Pending , CBC w Diff Pending, WBC Pending, RBC Pending, Hgb Pending, Hct Pending, MCV Pending, MCH Pending, RDW Pending, Plt Count Pending, MPV Pending, PUBS MCHC Pending 03/10/17 1615: Urinalysis LIGHT H, Urine Color STRAW, Urine Clarity CLDY H, Urine pH 6.5, Ur Specific [place] 1.015, Urine Protein 100 H, Urine Ketones NEG, Urine Nitrite NEG, Urine Bilirubin NEG, Urine Urobilinogen 0.2, Ur Leukocyte Esterase LARGE H , Ur Microscopic SEDIMENT EXAMINED, Urine RBC 3-5, Urine WBC > 75 H, Urine Bacteria PACKD H, Urine Hemoglobin MOD H, Urine Glucose NEG 03/10/17 1610: Anion Gap 18 H, Estimated GFR 24 L, BUN/Creatinine Ratio 25.2 H, Glucose 132 H, Calcium 10.2, Total Bilirubin 0.4, AST 28, ALT 31, Alkaline Phosphatase 157 H, Total Protein 8.7 H, Albumin 5.0, Globulin 3.7, Albumin/Globulin Ratio 1.4, Amylase 154 H, Lipase 548 H, CBC w Diff NO MAN DIFF REQ, RBC 3.71 L, MCV 93.3 , MCH 32.3 H, RDW 13.1, MPV 8.7, Gran % 80.0 H, Lymphocytes % 12.4 L, Monocytes % 7.3, Eosinophils % 0, Basophils % 0.3, Absolute Granulocytes 4.8, Absolute Lymphocytes 0.8 L, Absolute Monocytes 0.4, Absolute Eosinophils 0, Absolute Basophils 0, PUBS MCHC 34.6 Microbiology Date/Time Procedure - Status Source Growth 03/10 190 Blood Culture - RECD BLOOD 03/10 183 Blood Culture - RECD BLOOD 03/10 1615 Urine Culture - RECD URINE ROUT Vital Signs Date Time Temp Pulse Resp B/P B/P Pulse O2 O2 Flow FiO2 Mean Ox Delivery Rate 03/11 1023 82 140/70 03/11 0630 98.3 69 18 162/80 98 Room Air 01/04 0104 160/78 01/03 2343 79 180/88 01/03 2341 97.7 79 20 180/88 100 Room Air / 2033 97.8 73 18 190/98 100 Room Air / 1646 97.0 72 16 161/89 100 Room Air / 1602 97 Room Air / 1334 97.0 77 20 159/93 97 Room Air
[2017-03-11 12:46] LABS: ABSOLUTE BASOPHIL COUNT 0 /CUMM (0.0-0.2); ABSOLUTE EOSINOPHIL COUNT 0 /CUMM (0.0-0.7); ABSOLUTE GRANULOCYTE CT 2.4 /CUMM (1.4-6.5); ABSOLUTE LYMPH COUNT 0.9 /CUMM (1.2-3.4); ABSOLUTE MONOCYTE COUNT 0.3 /CUMM (0.10-0.60); BASOPHIL % 0.2 % (0.0-2.0); EOSINOPHIL % 0.1 % (0-5); GRANULOCYTE % 65.6 % (42.2-75.2); HEMATOCRIT 30.9 % (42-52); MEAN CORPUSCULAR HGB 32.5 PG (27.0-31.0); MEAN CORPUSCULAR HGB CONC 34.6 G/DL (33.0-37.0); MEAN CORPUSCULAR VOLUME 93.9 FL (80.0-94.0); MEAN PLATELET VOLUME 9.1 FL (7.4-10.4); PLATELET COUNT 184 /CUMM (130-400); RBC DISTRIBUTION WIDTH 13.1 % (11.5-14.5); RED BLOOD CELL CT 3.28 /CUMM (4.70-6.10); WHITE BLOOD CELL COUNT 3.7 /CUMM (4.8-10.8)
[2017-03-11 15:34] VITALS: BP 160/80
[2017-03-11 21:59] VITALS: BP 170/86
[2017-03-12] VITALS (8 sets, daily range): BP systolic 128–190; BP diastolic 68–90
--- NOTE | 2017-03-12 07:02 | PN- Housestaff ---
Subjective Follow-up For: UTI Acute on chronic kidney injury Deydration Hypernatremia Subjective: No overnight events. Patient remained afebrile overnight. Seen and examined this morning. He denied any chest pain, short of nausea, vomiting, chills, fever, abdominal pain dysuria. Review of Systems Constitutional: Reports: no symptoms. EENTM: Reports: no symptoms. Cardiovascular: Reports: no symptoms. Respiratory: Reports: no symptoms. Gastrointestinal: Reports: no symptoms. Genitourinary: Reports: no symptoms. Musculoskeletal: Reports: no symptoms. Neurological/Psychological: Reports: no symptoms. Objective Last 24 Hrs of Vital Signs/I&O Vital Signs Date Time Temp Pulse Resp B/P B/P Pulse O2 O2 Flow FiO2 Mean Ox Delivery Rate 03/12 0631 98.0 72 22 136/80 99 Room Air 03/12 0000 98 Room Air 03/11 2159 98.7 85 18 170/86 98 Room Air 03/11 2153 70 170/86 03/11 1534 97.8 60 22 160/80 98 03/11 1023 82 140/70 Intake & Output 03/12 1600 03/12 0800 03/12 0000 Intake Total 1080 1350 Output Total 450 675 Balance 630 675 Intake, IV 600 550 Intake, Oral 480 800 Number 2 1 Bowel Movements Output, Urine 450 675 Physical Exam General Appearance: Alert, Oriented X3, Cooperative, No Acute Distress Skin Temp/Moisture Exam: Warm/Dry Sepsis Skin Exam (color): Normal for Ethnicity HEENT: Atraumatic, PERRLA, EOMI Neck: Supple Cardiovascular: Normal S1, Normal S2 Lungs: decreased breath sounds b/l Abdomen: Soft, No Tenderness Neurological: Normal Tone, Sensation Intact Extremities: No Edema Assessment/Plan Assessment: 61 YO M resident of a custodial with significant PMH of mental retardation, hypertension, border line DM not on any medication, multiple falls, CKD stage III, Passive Aggressive Personality disorder and hyperlipidemia who was sent from custodial with aid presented with generalized weakness, vomiting and frequency of urination. We will admit the patient on general medicine floor considering his dehydration and acute on chronic kidney injury. UTI: -Patient's UA is dirty and showing negative nitite and positive esterase with high count of wbc although patient is asymptomatic. previously i was positive with E.COLI in old record. -One urine culture is positive with gram +ve cocci -we will follow the urine cultures. -we will discontinue the ceftriaxone and start unasyn 1gm Q6 to cover enterococci and follow the culture and sensitivities and change the antibiotics accordingly. Acute on chronic kidney injury:(improving) -His last creatinine is 1.8 in Apr 2016 and now it's 2.7 on admission. -Possibly due to dehydration due to low oral intake and vomiting. -We will monitor input and output. -No nephrotoxic medications. -We will monitor his kidney functions daily. -We will continue his sodium bicarbonate. -Anion gap acidosis could be possible due to chronic due to chronic kidney injury. -patient's creatinine is at close to baseline 1.9(03/12/17). His renal function has improved. Hypernatremia:(resolving) -possibly due to hypovolemic hyponatremia due to excessive urination and less oral intake of free water as he is on puree and nector thick diet. -sodium level is 150 yesterday. N/S was discontinued and patient was eating and drinking. His Na level yesterday evening came back 147. -we will continue monitoring it. He also received half bag of D5W last night, we will check Na level this morning. Vomiting:(resolved) - Any acute intraabdominal pathology was ruled out with normal x-ray abdoment and CT scan abdomen. Vomiting could be due to food posioning and possibility of pancreatitis is ruled out with normal pancrease on CT scan abdoment although lipase is 548. No tenderness of abdomen on examination. -Continue nector thick and pureed diet. -We will watch for the symptoms. -Incidental findings on CT scan are hiatal hernia, cholelithiasis, pulmonary nodule and right testicle is in inguinal canal. -We will continue omeprazole as he was taking at home. -Zofran iv PRN for vomiting. -Gentle iv hydration. We will encourage the patient to take oral diet as tolerated. HTN AND HLD: -We will continue his home medications. BPH: -We will continue his home medications. Psych meds: -We will continue all his psych meds. DVT prohylaxis: Mechanical and s/c heparin Code status: Full code Problem List: 1. Hypernatremia 2. [id number] kidney injury 3. UTI (urinary tract infection) 4. Dehydration Pain Ratin Pain Location: none Pain Goal: Remain pain free Pain Plan: tylenol for mild pain Tomorrow's Labs & Rationales: bep
[2017-03-12 09:33] LABS: ABSOLUTE BASOPHIL COUNT 0 /CUMM (0.0-0.2); ABSOLUTE EOSINOPHIL COUNT 0 /CUMM (0.0-0.7); ABSOLUTE GRANULOCYTE CT 2.6 /CUMM (1.4-6.5); ABSOLUTE MONOCYTE COUNT 0.3 /CUMM (0.10-0.60); BASOPHIL % 0.2 % (0.0-2.0); EOSINOPHIL % 0.1 % (0-5); GRANULOCYTE % 67.2 % (42.2-75.2); HEMATOCRIT 32.9 % (42-52); MEAN CORPUSCULAR HGB 32.5 PG (27.0-31.0); MEAN CORPUSCULAR HGB CONC 34.3 G/DL (33.0-37.0); MEAN CORPUSCULAR VOLUME 94.7 FL (80.0-94.0); PLATELET COUNT 186 /CUMM (130-400); RBC DISTRIBUTION WIDTH 13.5 % (11.5-14.5); RED BLOOD CELL CT 3.48 /CUMM (4.70-6.10); WHITE BLOOD CELL COUNT 3.9 /CUMM (4.8-10.8)
--- NOTE | 2017-03-12 10:53 | PN- Att Addend ---
Attending Addendum Attending Brief Note Patient comfortable in bed, IV fluids still going on. Vital signs are stable, no fever. No major changes on physical. Sodium still elevated despite IV fluids renal function still abnormal. Will get nephrology consultation to assess his hyponatremia and acute on chronic renal insufficiency and advice about the IV fluids his urine culture returned and has a UTI with antibiotics were adjusted Intake & Output 03/12 1600 03/12 0400 03/11 1600 03/11 0400 03/10 1600 03/10 0400 Intake Total 1080 1350 1865 Output Total 373 624 2359 300 Balance 780 525 565 -300 Intake, IV 600 550 525 Intake, Oral 808 913 3340 Number 1 2 0 Bowel Movements Output, Urine 888 319 8745 300 Patient 140 lb 165 lb Weight Weight Estimated Reported by Patient Measurement Method Current Medications Sig/Rubens Start time Last Medication Dose Route Stop Time Status Admin Acetaminophen 650 MG Q6P PRN 03/10 1830 AC PO Ampicillin Sodium/ 1,500 MG Q6 03/11 1341 AC 03/12 Sulbactam Sodium IV 0559 Sodium Chloride 100 ML Atorvastatin Calcium 20 MG 1700 03/11 1700 AC 03/11 PO 1634 Ceftriaxone Sodium 1,000 MG DAILY 03/11 1000 DC 03/11 IV 1030 Clonazepam 1 MG DAILY 03/11 1000 AC 03/11 PO 03/18 0959 1048 Clonazepam 1.5 MG QPM 03/10 2200 AC 03/11 PO 03/17 2159 2154 Dextrose/Water 1,000 ML ONCE ONE 03/11 1830 DC 03/11 IV 03/12 0749 1855 Gemfibrozil 600 MG BID 03/10 2200 AC 03/11 PO 2153 Heparin Sodium 5,000 UNIT Q8 03/10 2200 AC 03/12 (Porcine) SC 0608 Megestrol Acetate 40 MG DAILY 03/11 1000 AC 03/11 PO 1026 Metoprolol Tartrate 100 MG BID 03/10 2200 AC 03/11 PO 2153 Morphine Sulfate 2 MG Q4P PRN 03/10 1830 AC IV Omeprazole 40 MG DAILY AC 03/11 0700 AC 03/12 PO 0559 Polyethylene Glycol 17 GM DAILY 03/11 1000 AC 03/11 PO 1019 Sodium Bicarbonate 650 MG BID 03/10 2200 AC 03/11 PO 2153 Sodium Chloride 1,000 ML Q13H 03/10 1900 DC 03/11 IV 01/04 2059 0745 Venlafaxine HCl 150 MG BID 03/10 2199 AC 03/11 PO 2153 Ziprasidone 80 MG QPM 03/10 2199 AC 03/11 PO 215 Laboratory Tests 03/12/17 0825: Anion Gap 16, Estimated GFR 34 L, BUN/Creatinine Ratio 16.5, CBC w Diff NO MAN DIFF REQ, RBC 3.48 L, MCV 94.7 H, MCH 32.5 H, RDW 13.5, MPV 9.0, Gran % 67.2, Lymphocytes % 25.5, Monocytes % 7.0, Eosinophils % 0.1, Basophils % 0.2, Absolute Granulocytes 2.6, Absolute Lymphocytes 1.0 L, Absolute Monocytes 0.3, Absolute Eosinophils 0, Absolute Basophils 0, PUBS MCHC 34.3 03/11/17 1554: Anion Gap 13, Estimated GFR 36 L, BUN/Creatinine Ratio 25.3 H 03/11/17 1530: Ur Random Creatinine 28.3, Ur Random Sodium 52, Ur Random Potassium 13.3, Fraction Sodium Excret 2.7 H 03/11/17 1111: Anion Gap 16, Estimated GFR 31 L, BUN/Creatinine Ratio 21.8, CBC w Diff NO MAN DIFF REQ, RBC 3.28 L, MCV 93.9, MCH 32.5 H, RDW 13.1, MPV 9.1, Gran % 65.6, Lymphocytes % 25.9, Monocytes % 8.2, Eosinophils % 0.1, Basophils % 0.2, Absolute Granulocytes 2.4, Absolute Lymphocytes 0.9 L, Absolute Monocytes 0.3, Absolute Eosinophils 0, Absolute Basophils 0, PUBS MCHC 34.6 03/10/17 1615: Urinalysis LIGHT H, Urine Color STRAW, Urine Clarity CLDY H, Urine pH 6.5, Ur Specific [place] 1.015, Urine Protein 100 H, Urine Ketones NEG, Urine Nitrite NEG, Urine Bilirubin NEG, Urine Urobilinogen 0.2, Ur Leukocyte Esterase LARGE H , Ur Microscopic SEDIMENT EXAMINED, Urine RBC 3-5, Urine WBC > 75 H, Urine Bacteria PACKD H, Urine Hemoglobin MOD H, Urine Glucose NEG 03/10/17 1610: Anion Gap 18 H, Estimated GFR 24 L, BUN/Creatinine Ratio 25.2 H, Glucose 132 H, Calcium 10.2, Total Bilirubin 0.4, AST 28, ALT 31, Alkaline Phosphatase 157 H, Total Protein 8.7 H, Albumin 5.0, Globulin 3.7, Albumin/Globulin Ratio 1.4, Amylase 154 H, Lipase 548 H, CBC w Diff NO MAN DIFF REQ, RBC 3.71 L, MCV 93.3 , MCH 32.3 H, RDW 13.1, MPV 8.7, Gran % 80.0 H, Lymphocytes % 12.4 L, Monocytes % 7.3, Eosinophils % 0, Basophils % 0.3, Absolute Granulocytes 4.8, Absolute Lymphocytes 0.8 L, Absolute Monocytes 0.4, Absolute Eosinophils 0, Absolute Basophils 0, PUBS MCHC 34.6 Microbiology 03/10 1904 BLOOD: Blood Culture - RES 03/10 1829 BLOOD: Blood Culture - RES 03/10 161 URINE ROUT: Urine Culture - RES GRAM POSITIVE COCCI Microbiology 03/10 1904 BLOOD: Blood Culture - RES 03/10 1829 BLOOD: Blood Culture - RES 03/10 1614 URINE ROUT: Urine Culture - RES GRAM POSITIVE COCCI Vital Signs Date Time Temp Pulse Resp B/P B/P Pulse O2 O2 Flow FiO2 Mean Ox Delivery Rate 03/12 0631 98.0 72 22 136/80 99 Room Air 03/12 0000 98 Room Air 03/11 2159 98.7 85 18 170/86 98 Room Air 03/11 2153 70 170/86 03/11 1534 97.8 60 22 160/80 98
--- NOTE | 2017-03-12 17:12 | Cons- Nephrology ---
General Information and HPI Consulting Request Date of Consult: 03/12/17 Requested By: Jd Douglas MD Reason for Consult: CKD, hypernatremia Source of Information: old records History of Present Illness: 61-year-old man known to our service with chronic kidney disease stage III likely on the basis of long-term lithium therapy and hypertension with a baseline creatinine of approximately 2 mg percent. He was last seen in our office on 09/04/16 at which time his serum creatinine was 2.08. He was now admitted to [facility] on 03/10/17 from his [place] [facility] facility because of generalized weakness, vomiting, frequency of urination and acute on chronic renal failure with a serum creatinine of 2.7 on admission which has come down to his baseline of 2.0 today. We are being asked to see him because despite the fact that his renal function improved he continues to be somewhat hypernatremic with a serum sodium that was 141 on admission, 150 and 147 on March 11 ( yesterday) and 149 today. He received approximately 500 mL of D5W last evening. He has not been having any further vomiting or diarrhea and nursing tells me that his by mouth intake is now reasonably good. Urine culture was positive for gram-positive cocci for which she is being treated, blood cultures were negative and he has remained afebrile. Urine output has ranged from approximately 1300- 2000 mL per day. To my knowledge, there is no history of nephrogenic diabetes insipidus despite his terminologist therapy in the past with lithium. His serum sodium levels in our office have been normal. Past medical history is positive for mental retardation, hypertension, hyperlipidemia, personality disorder,? scleroderma. Outpatient medications: See below Allergies: Phenytoin, lactose Family history: Apparently negative for kidney disease in parents or other family members Social history: Lives in a [place] health care facility, denies history of cigarette smoking alcohol abuse or drug abuse. Allergies/Medications Allergies: Coded Allergies: lactose (Mild, VOMITING 05/29/15) phenytoin (UNKNOWN 05/29/15) Home Med List: Alendronate Sodium (Fosamax) 70 MG TABLET 1 TAB PO QFRI OSTEOPOROSIS ( Reported) in the morning, at least 30 minutes before the first food, beverage, or medication of the day Atorvastatin Calcium (Lipitor) 20 MG TABLET 1 TAB PO DAILY cholesterol ( Reported) Bisacodyl (Dulcolax) 10 MG SUPP.RECT 1 SUP RC SuMoWeFr CONSTIPATION (Reported ) Carbamazepine 100 MG/5 ML (5 ML) ORAL.SUSP 20 ML PO BID BEHAVIORAL DISTURBANCES (Reported) Cholecalciferol (Vitamin D3) (Vitamin D3) 5,000 UNIT/ML DROPS 6.25 ML PO Q30D VITAMIN SUPPORT (Reported) Clonazepam (Klonopin) 1 MG TABLET 1 TAB PO DAILY BEHAVIOR (Reported) Clonazepam (Klonopin) 0.5 MG TABLET 3 TAB PO QPM BEHAVIOR (Reported) Esomeprazole (Nexium) 40 MG CAPSULE.DR 1 CAP PO DAILY GI (Reported) Gemfibrozil (Lopid) 600 MG TABLET 1 TAB PO BID CHOLESTEROL (Reported) Lactase (Lactaid) 3,000 UNIT TABLET 1 TAB PO DAILY NEEDED PRN ALLERGIES ( Reported) Magnesium Hydroxide (Milk Of Magnesia) 400 MG/5 ML ORAL.SUSP 30 ML PO Q3D CONSTIPATION (Reported) Megestrol Acetate 40 MG TABLET 1 TAB PO DAILY SUPPLEMENT (Reported) Metoprolol Tartrate (Lopressor) 100 MG TABLET 1 TAB PO BID heart (Reported) Multivit-Minerals/Ferrous Gluc (Centrum Multivit-Mineral Liq) 9 MG IRON/15 ML LIQUID 15 ML PO DAILY VITAMIN SUPPORT (Reported) Polyethylene Glycol 3350 (Miralax) 17 GRAM POWD.PACK 1 PAC PO DAILY CONSTIPATION (Reported) dissolve in water Sodium Bicarbonate 650 MG TABLET 1 TAB PO BID SUPPLEMENT (Reported) Venlafaxine HCl (Effexor XR) 75 MG CAP.ER.24H 2 CAP PO BID BEHAVIOR (Reported ) Ziprasidone HCl (Geodon) 80 MG CAPSULE 1 CAP PO QPM BEHAVIOR (Reported) Review of Systems Review of Systems: Review of Systems Constitutional: Reports: weakness. EENTM: Reports: see HPI. Cardiovascular: Reports: no symptoms. Respiratory: Reports: no symptoms. GI: Reports: vomiting. Genitourinary: Reports: frequency. Musculoskeletal: Reports: no symptoms. Neurological/Psychological: Reports: no symptoms. 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 Psychosocial History Primary Language: Serbian Smoking Status: Never Smoked ETOH Use: denies use Illicit Drug Use: denies illicit drug use Functional Ability ADLs Independent: dressing, eating, toileting, bathing. Ambulation: independent IADLs Needs Assist: shopping, housework, finances, food prep, telephone, transportation, medication admin. Exam & Diagnostic Data Vital Signs and I&O Vital Signs Date Time Temp Pulse Resp B/P B/P Pulse O2 O2 Flow FiO2 Mean Ox Delivery Rate 03/12 1504 98.0 78 24 180/90 99 03/12 1215 170/90 03/12 1054 84 180/90 03/12 0631 98.0 72 22 136/80 99 Room Air 03/12 0000 98 Room Air 03/11 2159 98.7 85 18 170/86 98 Room Air 03/11 2153 70 170/86 Intake & Output 03/12 1600 03/12 0400 03/11 1600 03/11 0400 03/10 1600 03/10 0400 Intake Total 2730 1350 1865 Output Total 2964 106 8856 300 Balance 1530 525 565 -300 Intake, IV 750 550 525 Intake, Oral 3191 936 5046 Number 7 2 0 Bowel Movements Output, Urine 9407 281 8138 300 Patient 140 lb 140 lb 165 lb Weight Weight Estimated Reported by Patient Measurement Method Physical Exam: General: Well-developed white male in NAD Skin: No rash or jaundice HEENT: Conjunctivae pink, sclerae anicteric, mucous membranes moist, dyskinesia of tongue and mouth as well as increased tone and neck Neck: Without masses or thyromegaly, no supraclavicular or cervical adenopathy Chest: Clear to P&A Heart: Regular rate and rhythm without S3 or rub Abdomen: Soft and nontender without palpable masses or organomegaly Extremities: Without edema Neuro: See HEENT above, no asterixis or myoclonus Assessment/Plan Assessment/Recommendations Assessment: 61-year-old man with a history of mental retardation, hypertension, hyperlipidemia and CKD stage III thought to be secondary to previous chronic lithium exposure, now admitted following a GI illness with decreased by mouth intake with the finding of superimposed acute kidney injury which resolved with fluid resuscitation. However, he has developed hypernatremia which has persisted over the past 48 hours. There is no history of lithium-induced diabetes insipidus but this does need to be considered as a can be a permanent issue. Against this diagnosis is the fact that he has not as a rule but hypernatremic as an outpatient. Fortunately his appetite and by mouth intake have improved. Finally he appears to have a urinary tract infection which may be the cause of his symptoms leading up to admission. Recommendations: 1. Check urine osmolality 2. IV D5W at 75 mL per hour for 24 hours 3. Encourage by mouth fluids 4. Continue to monitor intake and output, chemistries 5. Agree with treating urinary tract infection Thank you. We will follow up.
[2017-03-13 06:27] VITALS: BP 160/84
--- NOTE | 2017-03-13 06:57 | PN- Housestaff ---
Prasad Molina 03/13/17 0656: Subjective Follow-up For: UTI Acute on chronic kidney injury Deydration Hypernatremia Complaints: pt unable to provide hx Subjective: Patient was seen and examined today. Patient alert, awake, disoriented. He remained afebrile. Overnight the patient blood pressure was difficult to control patient received total of 10 mg of amlodipine and after that his blood pressure improved. In the application support lead his blood pressure up again in the 160 systolic. Review of Systems Constitutional: Denies: chills, fever. Objective Last 24 Hrs of Vital Signs/I&O Vital Signs Date Time Temp Pulse Resp B/P B/P Pulse O2 O2 Flow FiO2 Mean Ox Delivery Rate 03/13 06 98.6 90 20 160/84 99 Room Air 03/12 2324 130/72 03/12 2256 66 20 128/68 03/12 2144 66 186/90 03/12 2129 186/90 03/12 2000 190/86 03/12 1901 91 180/80 03/12 1845 98.0 91 180/80 03/12 1704 80 178/92 03/12 1504 98.0 78 24 180/90 99 03/12 1215 170/90 03/12 1054 84 180/90 Intake & Output 03/13 1600 03/13 0800 03/13 0000 Intake Total 720 1760 Output Total 500 Balance 720 1260 Intake, IV 600 600 Intake, Oral 120 1160 Number 2 Bowel Movements Output, Urine 500 Physical Exam General Appearance: Alert, Cooperative, No Acute Distress HEENT: PERRLA, EOMI Neck: Supple Cardiovascular: Normal S1, Normal S2 Lungs: Clear to Auscultation, Normal Air Movement Abdomen: Normal Bowel Sounds, Soft, No Tenderness Extremities: No Cyanosis, No Edema Current Medications: Current Medications Sig/Rubens Start time Last Medication Dose Route Stop Time Status Admin Acetaminophen 650 MG Q6P PRN 03/10 1830 AC PO Amlodipine Besylate 5 MG ONCE ONE 03/12 2144 DC 03/12 PO 03/12 2145 214 Amlodipine Besylate 5 MG ONCE ONE 03/12 1600 DC 03/12 PO 03/12 1601 1704 Ampicillin Sodium/ 1,500 MG Q6 03/11 1341 AC 03/13 Sulbactam Sodium IV 0640 Sodium Chloride 100 ML Atorvastatin Calcium 20 MG 1700 03/11 1700 AC 03/12 PO 1704 Clonazepam 1 MG DAILY 03/11 1000 AC 03/12 PO 03/18 0959 1054 Clonazepam 1.5 MG QPM 03/10 2200 AC 03/12 PO 03/17 2159 2145 Dextrose/Water 1,000 ML Q13H 03/12 1745 CAN IV 03/13 0500 Dextrose/Water 1,000 ML Q13H 03/12 1245 AC 03/13 IV 03/13 1444 0640 Gemfibrozil 600 MG BID 03/10 220 AC 03/12 PO 2144 Heparin Sodium 5,000 UNIT Q8 03/10 2200 AC 03/13 (Porcine) SC 0640 Megestrol Acetate 40 MG DAILY 03/11 1000 AC 03/12 PO 1054 Metoprolol Tartrate 100 MG BID 03/10 2200 AC 03/12 PO 1901 Morphine Sulfate 2 MG Q4P PRN 03/10 1830 AC IV Omeprazole 40 MG DAILY AC 03/11 0700 AC 03/13 PO 0640 Polyethylene Glycol 17 GM DAILY 03/11 1000 AC 03/11 PO 1019 Sodium Bicarbonate 650 MG BID 03/10 2200 DC 03/12 PO 1054 Venlafaxine HCl 150 MG BID 03/10 2200 AC 03/12 PO 2143 Ziprasidone 80 MG QPM 03/10 2200 AC 03/12 PO 2145 Last 24 Hrs of Lab/Luis Results Last 24 Hrs of Labs/Mics: Laboratory Tests 03/13/17 0724: Sodium Pending, Potassium Pending, Chloride Pending, Carbon Dioxide Pending, Anion Gap Pending, BUN Pending, Creatinine Pending, BUN/Creatinine Ratio Pending , CBC w Diff Pending, WBC Pending, RBC Pending, Hgb Pending, Hct Pending, MCV Pending, MCH Pending, RDW Pending, Plt Count Pending, MPV Pending, PUBS MCHC Pending 03/12/172037: Anion Gap 14, Estimated GFR 36 L, BUN/Creatinine Ratio 13.7 03/12/171999: Urine Osmolality 247 L 03/12/17 1645: Anion Gap 14, Estimated GFR 36 L, BUN/Creatinine Ratio 15.8 Microbiology 03/12 1999 STOOL: Clostridium difficile Toxin A & B - RECD Assessment/Plan Assessment: 61 YO M resident of a [facility] with significant PMH of mental retardation, hypertension, border line DM not on any medication, multiple falls, CKD stage III, Passive Aggressive Personality disorder and hyperlipidemia who was sent from [facility] with aid presented with generalized weakness, vomiting and frequency of urination. We will admit the patient on general medicine floor considering his dehydration and acute on chronic kidney injury. UTI: -Patient's UA is dirty and showing negative nitite and positive esterase with high count of wbc although patient is asymptomatic. previously i was positive with E.COLI in old record. -One urine culture is positive with gram +ve cocci -we will follow the urine cultures. -Continue unasyn 1gm Q6 to cover enterococci and follow the culture and sensitivities and change the antibiotics accordingly. Acute on chronic kidney injury: -Keep up fluid hydration -We will follow nephrology recommendation. Diarrhea: -That could be due to Unasyn antibiotic as a side effect or the patient developed C. difficile colitis, the patient currently asymptomatic and he doesn' t look septic -Yesterday he had a total of 10 bowel movement -We will follow-up C. difficile and if it came back negative we'll start the patient on Imodium Hypernatremia: -Most likely secondary to dehydration giving the patient diarrhea and urinary frequency -We'll continue D5 at 50 mL/h, that was decreased from 75 overnight as his sodium dropped from 148-144. -We will follow a.m. sodium level and adjust fluid rate accordingly Vomiting:(resolved) - Any acute intraabdominal pathology was ruled out with normal x-ray abdoment and CT scan abdomen. Vomiting could be due to food posioning and possibility of pancreatitis is ruled out with normal pancrease on CT scan abdoment although lipase is 548. No tenderness of abdomen on examination. -Continue nector thick and pureed diet. -We will watch for the symptoms. -Incidental findings on CT scan are hiatal hernia, cholelithiasis, pulmonary nodule and right testicle is in inguinal canal. -We will continue omeprazole as he was taking at home. -Zofran iv PRN for vomiting. -Gentle iv hydration. We will encourage the patient to take oral diet as tolerated. HTN AND HLD: -We will continue his home medications. BPH: -We will continue his home medications. Psych meds: -We will continue all his psych meds. DVT prohylaxis: Mechanical and s/c heparin Code status: Full code Problem List: 1. Hypernatremia 2. Dehydration 3. [id number] kidney injury Pain Ratin Pain Location: 0 Pain Goal: Remain pain free Pain Plan: SAME Tomorrow's Labs & Rationales: BEP Neil Jeter MD 03/13/17 1539: Attending MD Review Statement Attending Statement Attending MD Statement: examined this patient, agreed w/resident/PA/BONE DRIER OPERATOR, reviewed EMR data (avail), discussed with nursing, amended to note Attending Assessment/Plan: Mr. Waldrop is sitting comfortably in bed. He was examined and interviewed and his EMR reviewed. He indicates by gestures that he has no complaints. He has remained afebrile. His systolic blood pressures were elevated earlier in the day but have corrected. He is in no acute distress. Pulmonary exam is clear to auscultation. Cardiac exam reveals regular rate and rhythm without murmur. His abdomen is soft and nontender. His WBC is normal today. Sodium is 149. His blood cultures are negative. Imaging shows no evidence of renal artery stenosis. We are continuing to treat his UTI with ampicillin/sulbactam. We are continuing D5W IV and following his electrolytes and renal function. We are continuing his maintenance medications.
[2017-03-13 08:26] LABS: ABSOLUTE BASOPHIL COUNT 0 /CUMM (0.0-0.2); ABSOLUTE EOSINOPHIL COUNT 0 /CUMM (0.0-0.7); ABSOLUTE GRANULOCYTE CT 2.9 /CUMM (1.4-6.5); ABSOLUTE MONOCYTE COUNT 0.3 /CUMM (0.10-0.60); BASOPHIL % 0.1 % (0.0-2.0); EOSINOPHIL % 0 % (0-5); GRANULOCYTE % 68.2 % (42.2-75.2); HEMATOCRIT 31.7 % (42-52); MEAN CORPUSCULAR HGB 32.3 PG (27.0-31.0); MEAN CORPUSCULAR VOLUME 94.9 FL (80.0-94.0); MEAN PLATELET VOLUME 8.5 FL (7.4-10.4); PLATELET COUNT 184 /CUMM (130-400); RBC DISTRIBUTION WIDTH 13.4 % (11.5-14.5); RED BLOOD CELL CT 3.34 /CUMM (4.70-6.10); WHITE BLOOD CELL COUNT 4.2 /CUMM (4.8-10.8)
[2017-03-13 13:46] VITALS: BP 140/78
--- NOTE | 2017-03-13 14:41 | ULTRASOUND REPORT ---
EXAMINATION: US RENAL ARTERY DOPPLER CLINICAL INFORMATION: Persistent hypertension resistant to treatment. Renal artery stenosis. COMPARISON: CT scan of March 10, 2017 TECHNIQUE: Renal ultrasound. Doppler ultrasound (spectral analysis and color Doppler) of the renal arteries and aorta were performed. FINDINGS: The right kidney measures 9.2 cm x 3.9 cm x 4.9 cm in sagittal, AP and transverse dimensions. The left kidney measures 8.3 cm x 5.3 cm x 4.0 cm in sagittal, AP and transverse dimensions. The kidneys show no solid masses, calculi or hydronephrosis. The corticomedullary differentiation is normal. There is a 1.1 cm right renal lower pole cyst and 0.8 cm left renal lower pole cyst. Urinary bladder appears unremarkable. Bilateral ureteral jets are identified. The prostate gland measures 4.5 x 3.5 x 4.5 cm in size. RENAL ARTERY VELOCITIES: Right: Proximally: 133 cm/s. Mid: 102 cm/s. Distal: 63 cm/s. Left: Proximally: 113 cm/s. Mid: 141 cm/s. Distally: 115 cm/s. The aortic velocity is 82 cm/s. The renal aortic ratio is 1.6 on the right and 1.7 on the left. These values are within normal limits. Incidentally noted is cholelithiasis without evidence of acute cholecystitis. IMPRESSION: 1. The kidneys are normal in appearance. 2. There is no evidence of hemodynamically significant renal artery stenosis. 3. Bilateral renal cysts. 4. No evidence of obstructive uropathy. 5. Cholelithiasis without evidence of acute cholecystitis.
[2017-03-13 22:13] VITALS: BP 140/80
[2017-03-14 06:28] VITALS: BP 100/64
--- NOTE | 2017-03-14 07:07 | PN- Housestaff ---
AbdirashidCarey 03/14/17 0707: Subjective Follow-up For: UTI Acute on chronic kidney injury Deydration Hypernatremia Subjective: No overnight events. Patient remained afebrile overnight. Seen and examined this morning. Patient denied any chest pain, short of breath, nausea, vomiting, chills, fever, abdominal pain and dysuria. Yesterday Doppler study was done to rule out any renal artery stenosis for his hypertension that was negative. Patient was agitated yesterday and trying to get out of the bed that's why he has one-on-one sitter. This morning he is not looking agitated. Review of Systems Constitutional: Reports: no symptoms. EENTM: Reports: no symptoms. Cardiovascular: Reports: no symptoms. Respiratory: Reports: no symptoms. Gastrointestinal: Reports: no symptoms. Genitourinary: Reports: no symptoms. Musculoskeletal: Reports: no symptoms. Neurological/Psychological: Reports: no symptoms. Objective Last 24 Hrs of Vital Signs/I&O Vital Signs Date Time Temp Pulse Resp B/P B/P Pulse O2 O2 Flow FiO2 Mean Ox Delivery Rate 03/14 0628 98.3 78 20 100/64 99 Room Air 03/13 2213 98.3 76 20 140/80 95 03/13 2149 76 140/80 03/13 1346 97.6 74 18 140/78 98 Room Air 03/13 0917 98.6 90 20 160/84 Intake & Output 03/14 0800 03/14 0000 03/13 1600 Intake Total 600 1400 1600 Output Total 512 226 1928 Balance -300 700 0 Intake, IV 600 600 800 Intake, Oral 800 800 Number 1 Bowel Movements Output, Urine 879 189 7745 Physical Exam General Appearance: Alert, Oriented X3, Cooperative, No Acute Distress Skin Temp/Moisture Exam: Warm/Dry HEENT: Atraumatic, PERRLA, EOMI Neck: Supple Cardiovascular: Normal S1, Normal S2 Lungs: Decreased breath sounds b/l Abdomen: Soft, No Tenderness Neurological: Normal Speech, Normal Tone Extremities: No Edema Assessment/Plan Assessment: 61 YO M resident of a [facility] with significant PMH of mental retardation, hypertension, border line DM not on any medication, multiple falls, CKD stage III, Passive Aggressive Personality disorder and hyperlipidemia who was sent from [facility] with aid presented with generalized weakness, vomiting and frequency of urination. We will admit the patient on general medicine floor considering his dehydration and acute on chronic kidney injury. UTI: -Patient's UA is dirty and showing negative nitite and positive esterase with high count of wbc although patient is asymptomatic. previously i was positive with E.COLI in old record. -One urine culture is positive with gram +ve cocci -we will follow the urine cultures. -Continue unasyn 1gm Q6 to cover enterococci and follow the culture and sensitivities and change the antibiotics accordingly. Acute on chronic kidney injury: -Keep up fluid hydration -We will follow nephrology recommendation. Diarrhea: -possibly antibiotics side effects. could be viral gastroenteritis. -If c.diff is negative we will start imodium. -We will start PRN imodium as recommended by attending. Hypernatremia: -POssibly hypovolemic hypernatremia. We will hydrate the patient with D5W and check Bep tomorrow. -His Na is 144 today. -We will discontinue D5W after we giving him 2L of free water. Vomiting:(resolved) - Any acute intraabdominal pathology was ruled out with normal x-ray abdoment and CT scan abdomen. Vomiting could be due to food posioning and possibility of pancreatitis is ruled out with normal pancrease on CT scan abdoment although lipase is 548. No tenderness of abdomen on examination. -Continue nector thick and pureed diet. -We will watch for the symptoms. -Incidental findings on CT scan are hiatal hernia, cholelithiasis, pulmonary nodule and right testicle is in inguinal canal. -We will continue omeprazole as he was taking at home. -Zofran iv PRN for vomiting. -Gentle iv hydration. We will encourage the patient to take oral diet as tolerated. HTN AND HLD: -We will continue his home medications. BPH: -We will continue his home medications. Psych meds: -We will continue all his psych meds. DVT prohylaxis: Mechanical and s/c heparin Code status: Full code Problem List: 1. Hypernatremia 2. Pezms-lu-cjhhzwz kidney injury 3. UTI (urinary tract infection) Pain Ratin Pain Location: none Pain Goal: Remain pain free Pain Plan: tylenol for mild pain Tomorrow's Labs & Rationales: Neil Chandra MD 03/14/17 1511: Attending MD Review Statement Attending Statement Attending MD Statement: examined this patient, agreed w/resident/PA/PRIMARY CARE PHYSICIAN, reviewed EMR data (avail), amended to note Attending Assessment/Plan: Mr. Waldrop was interviewed and examined in the presence of a sitter. Her was reviewed. He has no complaints today. He has remained afebrile with stable vital signs. Frequency of stooling has decreased to 4 today. He is in no acute distress. Pulmonary exam is limited by patient effort but appears benign. Cardiac exam is also benign. His abdomen is softly distended but nontender. WBC had decreased to 3400 and his H&H is stable. His sodium today is 144. Stool for C. difficile is negative. We will continue to treat his urinary tract infection with ampicillin/sulbactam. Frequency of stools will be controlled with Imodium. We will continue to follow his renal function and electrolytes. We are continuing his maintenance medications. Frequency of stools will be controlled with Imodium. We will continue to follow his renal function and electrolytes. We are continuing his maintenance medications.
[2017-03-14 09:27] LABS: ABSOLUTE BASOPHIL COUNT 0 /CUMM (0.0-0.2); ABSOLUTE EOSINOPHIL COUNT 0 /CUMM (0.0-0.7); ABSOLUTE LYMPH COUNT 1.1 /CUMM (1.2-3.4); ABSOLUTE MONOCYTE COUNT 0.2 /CUMM (0.10-0.60); BASOPHIL % 0.2 % (0.0-2.0); EOSINOPHIL % 0.1 % (0-5); GRANULOCYTE % 59.4 % (42.2-75.2); MEAN CORPUSCULAR HGB 32.7 PG (27.0-31.0); MEAN CORPUSCULAR VOLUME 93.7 FL (80.0-94.0); MEAN PLATELET VOLUME 8.4 FL (7.4-10.4); PLATELET COUNT 182 /CUMM (130-400); RBC DISTRIBUTION WIDTH 13.3 % (11.5-14.5); WHITE BLOOD CELL COUNT 3.4 /CUMM (4.8-10.8)
[2017-03-14 13:50] VITALS: BP 132/70
[2017-03-14 22:11] VITALS: BP 148/80
[2017-03-15 06:11] VITALS: BP 134/76
--- NOTE | 2017-03-15 07:31 | PN- Housestaff ---
Subjective Follow-up For: UTI Acute on chronic kidney injury Deydration Hypernatremia(resolved) Subjective: No overnight events. Patient remained afebrile overnight. Seen and examined this morning. He has one-on-one sitter because of impulsiveness. This morning patient is calm. He denied any chest pain, short of breath, nausea, vomiting, chills, fever, abdominal pain dysuria. His diarrhea has resolved. His sodium levels and normal range. Review of Systems Constitutional: Reports: no symptoms. EENTM: Reports: no symptoms. Cardiovascular: Reports: no symptoms. Respiratory: Reports: no symptoms. Gastrointestinal: Reports: no symptoms. Genitourinary: Reports: no symptoms. Musculoskeletal: Reports: no symptoms. Neurological/Psychological: Reports: no symptoms. Objective Last 24 Hrs of Vital Signs/I&O Vital Signs Date Time Temp Pulse Resp B/P B/P Pulse O2 O2 Flow FiO2 Mean Ox Delivery Rate 03/15 0611 98.8 90 20 134/76 100 Room Air 03/14 2211 99.1 95 20 148/80 97 03/14 1350 98.8 79 18 132/70 100 Room Air Intake & Output 03/15 1600 03/15 0800 03/15 0000 Intake Total 360 480 Output Total 750 1200 Balance -390 -720 Intake, IV 240 Intake, Oral 120 480 Number 2 Bowel Movements Output, Urine 750 1200 Physical Exam General Appearance: Alert, Oriented X3, Cooperative, No Acute Distress Skin Temp/Moisture Exam: Warm/Dry HEENT: Atraumatic Neck: Supple Cardiovascular: Normal S1, Normal S2 Lungs: b/l decreased breath sounds Abdomen: Soft, No Tenderness Neurological: Normal Speech, Normal Tone Extremities: No Edema Assessment/Plan Assessment: 61 YO M resident of a long term with significant PMH of mental retardation, hypertension, border line DM not on any medication, multiple falls, CKD stage III, Passive Aggressive Personality disorder and hyperlipidemia who was sent from long term with aid presented with generalized weakness, vomiting and frequency of urination. We will admit the patient on general medicine floor considering his dehydration and acute on chronic kidney injury. UTI: -Patient's UA is dirty and showing negative nitite and positive esterase with high count of wbc although patient is asymptomatic. previously i was positive with E.COLI in old record. -One urine culture is positive with gram +ve cocci -we will follow the urine cultures. -Continue unasyn 1gm Q6 to cover enterococci and follow the culture and sensitivities and change the antibiotics accordingly. Acute on chronic kidney injury: -Keep up fluid hydration -We will follow nephrology recommendation. Diarrhea:(resolved) -possibly antibiotics side effects. could be viral gastroenteritis. -If c.diff is negative we will start imodium. -We will start PRN imodium as recommended by attending. Hypernatremia:(resolved) -Possibly hypovolemic hypernatremia. We will hydrate the patient with D5W and check Bep tomorrow. -His Na is 141 today. -We will discontinue D5W after we giving him 2L of free water. Vomiting:(resolved) - Any acute intraabdominal pathology was ruled out with normal x-ray abdoment and CT scan abdomen. Vomiting could be due to food posioning and possibility of pancreatitis is ruled out with normal pancrease on CT scan abdoment although lipase is 548. No tenderness of abdomen on examination. -Continue nector thick and pureed diet. -We will watch for the symptoms. -Incidental findings on CT scan are hiatal hernia, cholelithiasis, pulmonary nodule and right testicle is in inguinal canal. -We will continue omeprazole as he was taking at home. -Zofran iv PRN for vomiting. -Gentle iv hydration. We will encourage the patient to take oral diet as tolerated. HTN AND HLD: -We will continue his home medications. BPH: -We will continue his home medications. Psych meds: -We will continue all his psych meds. DVT prohylaxis: Mechanical and s/c heparin Code status: Full code Problem List: 1. Hypernatremia 2. Bjlch-jl-tzyencz kidney injury 3. UTI (urinary tract infection) Pain Ratin Pain Location: none Pain Goal: Remain pain free Pain Plan: tylenol for mild pain Tomorrow's Labs & Rationales: bep
[2017-03-15] MEDS ORDERED: AMOX-CLAV 875-1 EACH PO (08:43)
--- NOTE | 2017-03-15 08:50 | Patient Discharge Instructions ---
Discharge Instructions General Discharge Information You were seen/treated for: UTI Acute on chronic kidney injury Hypernatremia Watch for these problems: Change in mental status, agitation, headache, nausea, vomiting, frequency of urination, dysuria and abdominal pain. If you experience any of these symptoms come to ED or call to your pcp. Special Instructions: Follow up with pcp in one week. Follow up with camera operator in one week. Diet Recommended Diet: Regular Additional DIET Information: Puree thick diet with nector thick liquids to prevent aspiration. Activity Activity Self Limited: Yes Acute Coronary Syndrome Inclusion Criteria At DC or during hospital stay patient has or had the following: ACS DIAGNOSIS No Discharge Core Measures Meds if any: Prescribed or Continued at Discharge Meds if any: NOT Prescribed or Continued at Discharge Congestive Heart Failure Inclusion Criteria At DC or during hospital stay patient has or had the following: CHF DIAGNOSIS No Discharge Core Measures Meds if any: Prescribed or Continued at Discharge Meds if any: NOT Prescribed or Continued at Discharge Cerebrovascular accident Inclusion Criteria At DC or during hospital stay patient has or had the following: CVA/TIA Diagnosis No Discharge Core Measures Meds if any: Prescribed or Continued at Discharge Meds if any: NOT Prescribed or Continued at Discharge Venous thromboembolism Inclusion Criteria VTE Diagnosis No VTE Type NONE VTE Confirmed by (Test) NONE Discharge Core Measures - Per Current guidelines, there needs to be overlap - treatment for the first 5 days of Warfarin therapy. - If discharged on Warfarin prior to 5 days of - overlap therapy, the patient will need to be - assessed for post discharge needs including - *Post discharge parental anticoagulation - *Warfarin and/or parental anticoagulation education - *Follow up date to check INR post discharge At least 5 days overlap therapy as Inpatient No Meds if any: Prescribed or Continued at Discharge Note: Overlap Therapy is Warfarin and Anticoagulant Meds if any: NOT Prescribed or Continued at Discharge
--- NOTE | 2017-03-15 09:52 | PN- Nephrology ---
Assessment/Plan Assessment: 1. Hypernatremia. It is tempting to blame this all on diabetes insipidus. However, examining outpatient labs, it seems that his serum sodiums have been running anywhere between 136 to 144. It is still possible that he does have nephrogenic DI related to long-term lithium use. Suggestion: 1. Continue with strict intakes and outputs and daily weights 2. Encourage by mouth fluid intake Subjective Subjective: Patient feels okay. He offers no complaints. Objective Vital Signs and I&Os Vital Signs Date Time Temp Pulse Resp B/P B/P Pulse O2 O2 Flow FiO2 Mean Ox Delivery Rate 03/15 0948 90 134/76 03/15 0611 98.8 90 20 134/76 100 Room Air 03/14 2211 99.1 95 20 148/80 97 03/14 1350 98.8 79 18 132/70 100 Room Air Intake & Output 03/15 1600 03/15 0400 03/14 1600 03/14 0400 03/13 1600 03/13 0400 Intake Total 434 909 8990 1400 2320 1760 Output Total 1150 1200 2854 763 3074 500 Balance -790 -720 600 682 367 5973 Intake, IV 240 4153 953 3808 600 Intake, Oral 120 480 800 123 399 0637 Number 2 4 1 2 Bowel Movements Output, Urine 1150 1200 9752 137 7986 500 Current Medications: Current Medications Sig/Rubens Start time Last Medication Dose Route Stop Time Status Admin Acetaminophen 650 MG Q6P PRN 03/10 1830 AC PO Amoxicillin/ 875 MG Q12 03/15 1000 AC 03/15 Clavulanate Potassium PO 0948 Ampicillin Sodium/ 1,500 MG Q6 03/11 1341 DC 03/15 Sulbactam Sodium IV 0624 Sodium Chloride 100 ML Atorvastatin Calcium 20 MG 1700 03/11 1700 AC 03/14 PO 1738 Clonazepam 1 MG DAILY 03/11 1000 AC 03/15 PO 03/18 0959 0947 Clonazepam 1.5 MG QPM 03/10 2200 AC 03/14 PO 03/17 2159 2211 Dextrose/Water 1,000 ML Q13H 03/13 2100 DC 03/14 IV 03/14 2259 0807 Gemfibrozil 600 MG BID 03/10 2200 AC 03/15 PO 0948 Heparin Sodium 5,000 UNIT Q8 03/10 2200 AC 03/15 (Porcine) SC 0624 Loperamide HCl 2 MG Q6P PRN 03/14 1800 AC PO Megestrol Acetate 40 MG DAILY 03/11 1000 AC 03/15 PO 0948 Metoprolol Tartrate 100 MG BID 03/10 2200 AC 03/15 PO 0948 Morphine Sulfate 2 MG Q4P PRN 03/10 1830 AC IV Omeprazole 40 MG DAILY AC 03/11 0700 AC 03/15 PO 0624 Polyethylene Glycol 17 GM DAILY 03/11 1000 AC 03/15 PO 0948 Venlafaxine HCl 150 MG BID 03/10 2200 AC 03/15 PO 0947 Ziprasidone 80 MG QPM 03/10 2200 AC 03/14 PO 2212 Results Pertinent Lab Results: Laboratory Tests 03/15 03/15 03/14 0855 0045 0750 Chemistry Sodium (137 - 145 mmol/L) Pending 141 144 Potassium (3.5 - 5.1 mmol/L) Pending 4.1 4.5 Chloride (98 - 107 mmol/L) Pending 111 H 113 H Carbon Dioxide (22 - 30 mmol/L) Pending 22 20 L Anion Gap (5 - 16) Pending 8 12 BUN (9 - 20 mg/dL) Pending 21 H 23 H Creatinine (0.7 - 1.2 mg/dL) Pending 2.0 H 2.0 H Estimated GFR (>60 ml/min) 34 L 34 L BUN/Creatinine Ratio (7 - 25 %) Pending 10.5 11.5 Hematology CBC w Diff Pending NO MAN DIFF REQ WBC (4.8 - 10.8 /CUMM) Pending 3.4 L RBC (4.70 - 6.10 /CUMM) Pending 3.10 L Hgb (14.0 - 18.0 G/DL) Pending 10.1 L Hct (42 - 52 %) Pending 29.0 L MCV (80.0 - 94.0 FL) Pending 93.7 MCH (27.0 - 31.0 PG) Pending 32.7 H RDW (11.5 - 14.5 %) Pending 13.3 Plt Count (130 - 400 /CUMM) Pending 182 MPV (7.4 - 10.4 FL) Pending 8.4 Gran % (42.2 - 75.2 %) 59.4 Lymphocytes % (20.5 - 51.1 %) 33.8 Monocytes % (1.7 - 9.3 %) 6.5 Eosinophils % (0 - 5 %) 0.1 Basophils % (0.0 - 2.0 %) 0.2 Absolute Granulocytes (1.4 - 6.5 /CUMM) 2.0 Absolute Lymphocytes (1.2 - 3.4 /CUMM) 1.1 L Absolute Monocytes (0.10 - 0.60 /CUMM) 0.2 Absolute Eosinophils (0.0 - 0.7 /CUMM) 0 Absolute Basophils (0.0 - 0.2 /CUMM) 0 PUBS MCHC (33.0 - 37.0 G/DL) Pending 35.0 03/1324 2037 1999 1645 Chemistry Sodium (137 - 145 mmol/L) 149 H 144 148 H Potassium (3.5 - 5.1 mmol/L) 4.0 4.0 3.9 Chloride (98 - 107 mmol/L) 110 H 107 111 H Carbon Dioxide (22 - 30 mmol/L) 24 22 24 Anion Gap (5 - 16) 14 14 14 BUN (9 - 20 mg/dL) 24 H 26 H 30 H Creatinine (0.7 - 1.2 mg/dL) 2.0 H 1.9 H 1.9 H Estimated GFR (>60 ml/min) 34 L 36 L 36 L BUN/Creatinine Ratio (7 - 25 %) 12.0 13.7 15.8 Hematology CBC w Diff NO MAN DIFF REQ WBC (4.8 - 10.8 /CUMM) 4.2 L RBC (4.70 - 6.10 /CUMM) 3.34 L Hgb (14.0 - 18.0 G/DL) 10.8 L Hct (42 - 52 %) 31.7 L MCV (80.0 - 94.0 FL) 94.9 H MCH (27.0 - 31.0 PG) 32.3 H RDW (11.5 - 14.5 %) 13.4 Plt Count (130 - 400 /CUMM) 184 MPV (7.4 - 10.4 FL) 8.5 Gran % (42.2 - 75.2 %) 68.2 Lymphocytes % (20.5 - 51.1 %) 24.2 Monocytes % (1.7 - 9.3 %) 7.5 Eosinophils % (0 - 5 %) 0 Basophils % (0.0 - 2.0 %) 0.1 Absolute Granulocytes (1.4 - 6.5 /CUMM) 2.9 Absolute Lymphocytes (1.2 - 3.4 /CUMM) 1.0 L Absolute Monocytes (0.10 - 0.60 /CUMM) 0.3 Absolute Eosinophils (0.0 - 0.7 /CUMM) 0 Absolute Basophils (0.0 - 0.2 /CUMM) 0 PUBS MCHC (33.0 - 37.0 G/DL) 34.0 Urines Urine Osmolality (300 - 1000 MOSM/KG) 247 L
[2017-03-15 10:37] LABS: ABSOLUTE BASOPHIL COUNT 0 /CUMM (0.0-0.2); ABSOLUTE EOSINOPHIL COUNT 0 /CUMM (0.0-0.7); ABSOLUTE GRANULOCYTE CT 2.3 /CUMM (1.4-6.5); ABSOLUTE LYMPH COUNT 0.9 /CUMM (1.2-3.4); ABSOLUTE MONOCYTE COUNT 0.2 /CUMM (0.10-0.60); BASOPHIL % 0.2 % (0.0-2.0); EOSINOPHIL % 0 % (0-5); GRANULOCYTE % 67.5 % (42.2-75.2); MEAN CORPUSCULAR HGB 32.9 PG (27.0-31.0); MEAN CORPUSCULAR VOLUME 94.1 FL (80.0-94.0); MEAN PLATELET VOLUME 8.4 FL (7.4-10.4); PLATELET COUNT 178 /CUMM (130-400); RBC DISTRIBUTION WIDTH 13.1 % (11.5-14.5); RED BLOOD CELL CT 3.08 /CUMM (4.70-6.10); WHITE BLOOD CELL COUNT 3.4 /CUMM (4.8-10.8)
--- NOTE | 2017-03-15 10:54 | PN- Att Addend ---
Attending Addendum Attending Brief Note No major issues over the weekend. Patient looks at his baseline. Vital signs are stable no fever no new changes on physical, sodium 146 which is much improved. Kidney function at baseline elevated. We will start disposition plans for the patient to return to the assisted see C MR and discharge summary Intake & Output 03/15 1600 03/15 0400 03/14 1600 03/14 0400 03/13 1600 03/13 0400 Intake Total 914 326 1477 1400 2320 1760 Output Total 1150 1200 7561 105 0460 500 Balance -790 -720 600 757 682 2783 Intake, IV 240 7822 600 0101 600 Intake, Oral 120 480 800 596 313 5192 Number 2 4 1 2 Bowel Movements Output, Urine 1150 1200 9885 250 6015 500 Current Medications Sig/Rubens Start time Last Medication Dose Route Stop Time Status Admin Acetaminophen 650 MG Q6P PRN 03/10 1830 AC PO Amoxicillin/ 875 MG Q12 03/15 1000 AC 03/15 Clavulanate Potassium PO 0948 Ampicillin Sodium/ 1,500 MG Q6 03/11 1341 DC 03/15 Sulbactam Sodium IV 0624 Sodium Chloride 100 ML Atorvastatin Calcium 20 MG 1700 03/11 1700 AC 03/14 PO 1738 Clonazepam 1 MG DAILY 03/11 1000 AC 03/15 PO 03/18 0959 0947 Clonazepam 1.5 MG QPM 03/10 2200 AC 03/14 PO 03/17 2159 2211 Dextrose/Water 1,000 ML Q13H 03/13 2100 DC 03/14 IV 03/14 2259 0807 Gemfibrozil 600 MG BID 03/10 2200 AC 03/15 PO 0948 Heparin Sodium 5,000 UNIT Q8 03/10 2200 AC 03/15 (Porcine) SC 0624 Loperamide HCl 2 MG Q6P PRN 03/14 1800 AC PO Megestrol Acetate 40 MG DAILY 03/11 1000 AC 03/15 PO 0948 Metoprolol Tartrate 100 MG BID 03/10 2200 AC 03/15 PO 0948 Morphine Sulfate 2 MG Q4P PRN 03/10 1830 AC IV Omeprazole 40 MG DAILY AC 03/11 0700 AC 03/15 PO 0624 Polyethylene Glycol 17 GM DAILY 03/11 1000 AC 03/15 PO 0948 Venlafaxine HCl 150 MG BID 03/10 2200 AC 03/15 PO 0947 Ziprasidone 80 MG QPM 03/10 2199 AC 03/14 PO 2212 Laboratory Tests 03/15/17 0855: Anion Gap 14, Estimated GFR 34 L, BUN/Creatinine Ratio 10.5, CBC w Diff Pending , WBC Pending, RBC Pending, Hgb Pending, Hct Pending, MCV Pending, MCH Pending, RDW Pending, Plt Count Pending, MPV Pending, PUBS MCHC Pending 03/15/17 0045: Anion Gap 8, Estimated GFR 34 L, BUN/Creatinine Ratio 10.5 03/14/17 0750: Anion Gap 12, Estimated GFR 34 L, BUN/Creatinine Ratio 11.5, CBC w Diff NO MAN DIFF REQ, RBC 3.10 L, MCV 93.7, MCH 32.7 H, RDW 13.3, MPV 8.4, Gran % 59.4, Lymphocytes % 33.8, Monocytes % 6.5, Eosinophils % 0.1, Basophils % 0.2, Absolute Granulocytes 2.0, Absolute Lymphocytes 1.1 L, Absolute Monocytes 0.2, Absolute Eosinophils 0, Absolute Basophils 0, PUBS MCHC 35.0 03/13/17 0724: Anion Gap 14, Estimated GFR 34 L, BUN/Creatinine Ratio 12.0, CBC w Diff NO MAN DIFF REQ, RBC 3.34 L, MCV 94.9 H, MCH 32.3 H, RDW 13.4, MPV 8.5, Gran % 68.2, Lymphocytes % 24.2, Monocytes % 7.5, Eosinophils % 0, Basophils % 0.1, Absolute Granulocytes 2.9, Absolute Lymphocytes 1.0 L, Absolute Monocytes 0.3, Absolute Eosinophils 0, Absolute Basophils 0, PUBS MCHC 34.0 03/12/172037: Anion Gap 14, Estimated GFR 36 L, BUN/Creatinine Ratio 13.7 03/12/171999: Urine Osmolality 247 L 03/12/17 1645: Anion Gap 14, Estimated GFR 36 L, BUN/Creatinine Ratio 15.8 Microbiology 03/12 1999 STOOL: Clostridium difficile Toxin A & B - COMP Microbiology 03/12 1999 STOOL: Clostridium difficile Toxin A & B - COMP Vital Signs Date Time Temp Pulse Resp B/P B/P Pulse O2 O2 Flow FiO2 Mean Ox Delivery Rate 03/15 947 90 134/76 01/08 0611 98.8 90 20 134/76 100 Room Air 03/14 2211 99.1 95 20 148/80 97 03/14 1350 98.8 79 18 132/70 100 Room Air
[2017-03-15 12:19] VITALS: BP 134/76
== END 2017-03-15 17:09 | DRG 683 ==
LOC: ERH 13:26 → 2NA 17:55 → ERHI 17:55 → ENRESERV 22:15 → 2NA 23:03 → ENPENDDIS 03-15 10:46 → ENTRNSPT 03-15 15:50 → EDTRNSPTSTS 03-15 16:19 → EDTRNSPT 03-15 16:19 → CMPTRNSPT 03-15 16:54 → 2NA 03-15 17:09
PROVIDERS: Internal Medicine Hematology & Oncology; Physician Assistant; Student in an Organized Health Care Education/Training Program
DX: N17.9 Acute kidney failure, unspecified (principal); E87.2 Acidosis; N39.0 Urinary tract infection, site not specified; I12.9 Hypertensive chronic kidney disease with stage 1 through stage 4 chronic kidney disease, or unspecified chronic kidney disease; N18.3 Chronic kidney disease, stage 3 (moderate); F79 Unspecified intellectual disabilities; E86.0 Dehydration; Z91.81 History of falling; E78.5 Hyperlipidemia, unspecified; N40.0 Benign prostatic hyperplasia without lower urinary tract symptoms; R11.10 Vomiting, unspecified; R91.1 Solitary pulmonary nodule
CPT/HCPCS: 2NASP; 84133; 84300; 87184; 36415; 71046; 74018; 74176; 81001; 82436; 82570; 87040; 87086; 87147; J0696; J1644; J7060

== ENCOUNTER 2017-07-29 15:51 | Observation (INO) | payer OTHER, MEDICARE ==
[~2017-07-29] VITALS: Ht 170.2 cm; Wt 64.0 kg
[~2017-07-29 15:51] MED LIST changes: +AMOX-CLAV 875-1 EACH PO
--- NOTE | 2017-07-29 16:07 | ED MVC/FALL/TRAUMA COMPLAINT ---
History of Present Illness General Chief Complaint: Fall Stated Complaint: BIBA FOR FALL Source: old records, [employer] Exam Limitations: MR Vital Signs & Intake/Output Vital Signs & Intake/Output Vital Signs Date Time Temp Pulse Resp B/P B/P Pulse O2 O2 Flow FiO2 Mean Ox Delivery Rate 07/29 1844 4.0 07/29 1821 98.3 07/29 1800 97.8 75 20 123/75 99 Room Air 07/29 1558 98 07/29 1552 98.3 63 20 92/64 100 Room Air Allergies Coded Allergies: lactose (Mild, VOMITING 05/29/15) phenytoin (UNKNOWN 05/29/15) Reconcile Medications Alendronate Sodium (Fosamax) 70 MG TABLET 1 TAB PO QFRI OSTEOPOROSIS ( Reported) in the morning, at least 30 minutes before the first food, beverage, or medication of the day Amoxicillin/Clavulanate Potass (Amox-Clav 875-125 MG Tablet) 875 MG-125 MG TABLET 1 TAB PO BID UTI Atorvastatin Calcium (Lipitor) 20 MG TABLET 1 TAB PO DAILY cholesterol ( Reported) Bisacodyl (Dulcolax) 10 MG SUPP.RECT 1 SUP RC SuMoWeFr CONSTIPATION (Reported ) Carbamazepine 100 MG/5 ML (5 ML) ORAL.SUSP 20 ML PO BID BEHAVIORAL DISTURBANCES (Reported) Cholecalciferol (Vitamin D3) (Vitamin D3) 5,000 UNIT/ML DROPS 6.25 ML PO Q30D VITAMIN SUPPORT (Reported) Clonazepam (Klonopin) 1 MG TABLET 1 TAB PO DAILY BEHAVIOR (Reported) Clonazepam (Klonopin) 0.5 MG TABLET 3 TAB PO QPM BEHAVIOR (Reported) Esomeprazole (Nexium) 40 MG CAPSULE.DR 1 CAP PO DAILY GI (Reported) Gemfibrozil (Lopid) 600 MG TABLET 1 TAB PO BID CHOLESTEROL (Reported) Lactase (Lactaid) 3,000 UNIT TABLET 1 TAB PO DAILY NEEDED PRN ALLERGIES ( Reported) Magnesium Hydroxide (Milk Of Magnesia) 400 MG/5 ML ORAL.SUSP 30 ML PO Q3D CONSTIPATION (Reported) Megestrol Acetate 40 MG TABLET 1 TAB PO DAILY SUPPLEMENT (Reported) Metoprolol Tartrate (Lopressor) 100 MG TABLET 1 TAB PO BID heart (Reported) Multivit-Minerals/Ferrous Gluc (Centrum Multivit-Mineral Liq) 9 MG IRON/15 ML LIQUID 15 ML PO DAILY VITAMIN SUPPORT (Reported) Polyethylene Glycol 3350 (Miralax) 17 GRAM POWD.PACK 1 PAC PO DAILY CONSTIPATION (Reported) dissolve in water Sodium Bicarbonate 650 MG TABLET 1 TAB PO BID SUPPLEMENT (Reported) Venlafaxine HCl (Effexor XR) 75 MG CAP.ER.24H 2 CAP PO BID BEHAVIOR (Reported ) Ziprasidone HCl (Geodon) 80 MG CAPSULE 1 CAP PO QPM BEHAVIOR (Reported) Triage Note: PT BIBA FROM LONG-TERM AFTER "PASSING OUT" IN THE HOME AND LANDING ON HIS FACE. PER STAFF PT DID NOT PUT HIS ARMS OUT TO STOP HIS FALL AND WHEN STAFF ROLLED HIM OVER HE LOOKED "GROGGY AND IF HE WAS STARTING TO COME AROUND". PT BP 98/65 ON ARRIVAL TO ED. Triage Nurses Notes Reviewed? yes Onset: Abrupt Duration: better Severity: moderate Severity Numbers: 5 Method of Injury: direct blow, fall Loss of Consciousness: brief (seconds) HPI: Patient is a 62-year-old male with a past medical history of organic affective disorder, passive-aggressive personality, mild mental retardation, CKD, osteoporosis diabetes who presents emergency room brought in by ambulance for concerns of a witnessed fall by the caregiver today where the patient was ambulated behind the caregiver where he noted patient's eyes to close and patient falling forward landing on his face and anterior aspect of his body to the floor. The patient was unconscious for approximately 3-5 seconds. Patient suffered bleeding to his nose afterwards. (Jed Domínguez) Past History Travel History Traveled to [place] past 21 day No Medical History Any Pertinent Medical History? 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 Hx Contributory? No (Jed Domínguez) Review of Systems Review of Systems Constitutional: Reports: no symptoms. Eyes: Reports: no symptoms. Ears, Nose, Throat, Mouth: Reports: no symptoms. Respiratory: Reports: no symptoms. Cardiovascular: Reports: no symptoms. Gastrointestinal/Abdominal: Reports: no symptoms. Genitourinary: Reports: no symptoms. Musculoskeletal: Reports: no symptoms. Skin: Reports: see HPI. Neurological/Psychological: Reports: see HPI. All Other Systems: Reviewed and Negative (Jed Domínguez) Physical Exam Physical Exam General Appearance: no apparent distress, comfortable Head: evidence of injury Eyes: Bilateral: normal appearance, PERRL. Ears, Nose, Throat, Mouth: hearing grossly normal, moist mucous membrane Neck: normal inspection, full range of motion, no midline tenderness Respiratory: normal breath sounds, chest non-tender Cardiovascular: regular rate/rhythm Gastrointestinal: normal bowel sounds, soft, non-tender Extremities: normal range of motion Neurologic/Psych: no motor/sensory deficits Skin: normal color Comments: Bilateral upper extremities and lower extremities normal inspection nontender full active range of motion NOTED DRIED BLOOD ON face no signs of laceration Patient has mild blood to the nares bilaterally no active bleeding Diagram Head: 1) NOTED LINEAR 4MM NONGAPING LACERATION NOTED ecchymosis and swelling 2) Noted INTERIOR lip 2 cm gaping laceration Core Measures ACS in differential dx? Yes CVA/TIA Diagnosis No Sepsis Present: No Sepsis Focused Exam Completed? No (Jed Domínguez) Progress Differential Diagnosis: aoritic dissection, abd injury, C/T/L spine injury, ext injury, ICH, pelvis injury, pnemothorax, spinal cord injury Plan of Care: Orders Procedure Date/time Status Regular Diet 07/30 B Active OXYGEN SETUP (GEN) 07/29 1857 Active Saline Lock 07/[address] in observation 07/29 185 Active Vital Signs 07/29 185 Active Activity/Ambulation 07/29 185 Active Code Status 07/29 185 Active MISTAKE 07/29 1724 Active URINALYSIS 07/29 1607 Active TROPONIN LEVEL 07/29 1607 Complete COMPREHENSIVE METABOLIC PANEL 07/29 1607 Complete CBC WITHOUT DIFFERENTIAL 07/29 160 Complete EKG 07/29 1607 Active Laboratory Tests 07/29/17 1620: Anion Gap 12, Estimated GFR 28 L, BUN/Creatinine Ratio 21.7, Glucose 98, Calcium 9.5, Total Bilirubin 0.4, AST 28, ALT 30, Alkaline Phosphatase 118, Troponin I < 0.01, Total Protein 7.1, Albumin 4.2, Globulin 2.9, Albumin/ Globulin Ratio 1.4, CBC w Diff NO MAN DIFF REQ, RBC 2.96 L, MCV 94.3 H, MCH 33.2 H, MCHC 35.2, RDW 12.6, MPV 8.1, Gran % 66.0, Lymphocytes % 25.7, Monocytes % 7.8, Eosinophils % 0.1, Basophils % 0.4, Absolute Granulocytes 2.3, Absolute Lymphocytes 0.9 L, Absolute Monocytes 0.3, Absolute Eosinophils 0, Absolute Basophils 0 Patient on initial presentation is resting comfortably bedside no apparent distress no respiratory distress CAT scan reveals 2 rib fractures discussed results with caregiver due to patient having similar episode rib fractures and acute on chronic renal failure admission will be warranted Patient's nose was still cleaned sterile water and which using benzoin on each side of the laceration margin I applied 1/2 inch Steri-Strip in which margins were revised FOR THE patient's inner lip LACERATION sterile technique was used AND THE LIP was irrigated with sterile water I applied L.E.T. for local anesthesia that I applied #1,5-0 absorbable suture Margins were grossly refined patient tolerated well Patient will receive prophylactic antibiotics Discussed patient with Dr. Douglas who advised patient to be placed in telemetry observation Discussed observation with the caregiver who was aware Patient could ambulate with steady gait in the emergency room Discussed patient with case management Diagnostic Imaging: Viewed by Me: CT Scan. Radiology Impression: acute abnormality Initial ED EKG: SINUS RHYTHM 60 BPM WITH INCOMPLETE RIGHT BUNDLE BRANCH BLOCK Comments: PATIENT: BRUNO GARCIA PRESENT AGE: 62 PATIENT ACCOUNT NO: [id number] : 57 LOCATION: [facility] ORDERING PHYSICIAN: Jed AUGUSTIN SERVICE DATE: 07/29/17 EXAM TYPE: CAT - CT ABD & PELVIS W/O IV CONTRAS; CT CHEST WO IV CONTRAST EXAMINATION: CT CHEST WITHOUT IV CONTRAST CT ABDOMEN AND PELVIS WITHOUT IV CONTRAST CLINICAL INFORMATION: 62-year-old male with history of syncope and fall. COMPARISON: CT images of abdomen pelvis from 03/10/2017. TECHNIQUE: Noncontrast multidetector CT imaging examination of the chest, abdomen and pelvis was performed. Axial images are presented at 0.625 mm and 5 mm slice thickness. Coronal and sagittal reformatted images were generated at the technologist's workstation and submitted for review. DLP: 466 mGy-cm FINDINGS: CHEST - LUNGS and PLEURA: Trachea and central airways are widely patent and normal in caliber. Small, 0.2 cm calcified granulomas of the right middle lobe and right lower lobe. A 0.2 cm noncalcified nodule in the left lower lobe is unchanged compared to 03/10/2017. No suspicious nodule, mass, consolidation, pleural effusion or pneumothorax. MEDIASTINUM: [id number] atherosclerotic calcification of coronary arteries. Heart size is normal. Pulmonary arteries and thoracic aorta are normal in caliber. No pericardial effusion. No pneumomediastinum. The esophagus has normal wall thickness. Multinodular thyroid gland. The largest, visualized thyroid nodule with rim calcification measures up to 0.9 cm. LYMPHATICS: No pathologic sized axillary, hilar or mediastinal lymph nodes. CHEST WALL/BONES: Thoracic vertebra have normal height and alignment. No acute fractures in anterior or posterior element. The sternum is normal. Acute, nondisplaced fractures of left lateral seventh and eighth ribs. ABDOMEN AND PELVIS - HEPATOBILIARY: Liver has normal size, contour and attenuation. 0.9 cm simple cyst in the right lobe of the liver. No suspicious liver lesion. Gallbladder contains a 1.5 cm stone. No gallbladder wall edema or pericholecystic fluid. No intrahepatic or extrahepatic bile duct dilatation. PANCREAS: Unremarkable. SPLEEN: Unremarkable. ADRENAL GLANDS: Unremarkable. KIDNEYS, URETERS, BLADDER: Unremarkable. GI TRACT AND PERITONEUM: Bowel loops are normal in caliber. No evidence of acute obstruction along the gastrointestinal tract. There appears to be chronic, circumferential wall thickening of the rectum which contains a [id number]-yw-[id number] amount of fecal material. There is subtle perirectal fat stranding. No ascites or pneumoperitoneum. ABDOMINAL WALL: Unremarkable. VASCULAR: Mild atherosclerosis of the abdominal aorta without aneurysm. No retroperitoneal hematoma. LYMPH NODES: No pathologic sized lymph nodes within the abdomen or pelvis. PELVIC VISCERA: Again noted is the left testicle within the distal left inguinal canal. The prostate gland is grossly unremarkable. No pelvic free fluid. OSSEOUS STRUCTURES: The lumbar vertebra have normal height and alignment. No acute fractures in the lumbar spine. Within the lumbar spine, facet arthropathy is most pronounced on the right at L5-S1. Bone island of the left ischium. No suspicious osseous lesions. Pelvic bones and proximal femurs are intact. IMPRESSION: 1. There are acute, nondisplaced fractures of the left lateral seventh and eighth ribs. No pulmonary contusion, pneumothorax or pleural effusion. 2. No acute traumatic findings in the abdomen or pelvis. 3. Cholelithiasis without cholecystitis. 4. There appears to be chronic circumferential wall thickening of the rectum, and subtle perirectal fat stranding is noted. These findings require further clinical correlation. Query whether whether there are clinical signs/symptoms of mild proctitis. DICTATED BY: Vidal Bryson MD DATE/TIME DICTATED:07/29/171739 WATER COMMISSIONER:LOKESH (Jed Domínguez) Departure Departure Disposition: STILL A PATIENT Condition: Stable Clinical Impression Primary Impression: Syncope Secondary Impressions: [id number] kidney injury, Laceration of mouth, Nasal contusion, Rib fracture Referrals: Jd Douglas MD (PCP/Family) Departure Forms: Customer Survey General Discharge Information Observation Note Spoke With: Jd Douglas MD Physician Advisor Notified: RADHA VÁZQUEZ,LISETTE [address] Patient In: Non-ED OBS Care Area Rationale for Observation: My rational for observation is as follows [patient requires telemetry observation for syncopal episode, pain management, PHYSICA therapy consultation, repeat labs, IV fluids, cardiology consultation]. (Jed Domínguez) PA/MANAGEMENT LIAISON Co-Sign Statement Statement: ED Attending supervision documentation- x I saw and evaluated the patient. I have also reviewed all the pertinent lab results and diagnostic results. I agree with the findings and the plan of care as documented in the PA's/MANAGEMENT LIAISON's documentation. Syncope with lip laceration from usp. [] I have reviewed the ED Record and agree with the PA's/MANAGEMENT LIAISON's documentation. [] Additions or exceptions (if any) to the PAs/MANAGEMENT LIAISON's note and plan are summarized below: [] (Umesh VÁZQUEZ,[place])
[2017-07-29 16:37] LABS: ABSOLUTE BASOPHIL COUNT 0 /CUMM (0.0-0.2); ABSOLUTE EOSINOPHIL COUNT 0 /CUMM (0.0-0.7); ABSOLUTE GRANULOCYTE CT 2.3 /CUMM (1.4-6.5); ABSOLUTE LYMPH COUNT 0.9 /CUMM (1.2-3.4); ABSOLUTE MONOCYTE COUNT 0.3 /CUMM (0.10-0.60); BASOPHIL % 0.4 % (0.0-2.0); EOSINOPHIL % 0.1 % (0-5); HEMATOCRIT 27.9 % (42-52); MEAN CORPUSCULAR HGB 33.2 PG (27.0-31.0); MEAN CORPUSCULAR HGB CONC 35.2 G/DL (33.0-37.0); MEAN CORPUSCULAR VOLUME 94.3 FL (80.0-94.0); MEAN PLATELET VOLUME 8.1 FL (7.4-10.4); PLATELET COUNT 195 /CUMM (130-400); RBC DISTRIBUTION WIDTH 12.6 % (11.5-14.5); RED BLOOD CELL CT 2.96 /CUMM (4.70-6.10); WHITE BLOOD CELL COUNT 3.4 /CUMM (4.8-10.8)
--- NOTE | 2017-07-29 17:50 | CT SCAN REPORT ---
EXAMINATIONS: CT HEAD WITHOUT CONTRAST AND CT CERVICAL SPINE WITHOUT CONTRAST AND CT FACIAL BONES WITHOUT CONTRAST CLINICAL INFORMATION: Syncope. Trauma to head and face. COMPARISON: 04/12/2016. TECHNIQUE: Contiguous helical images of the brain were obtained without IV contrast. Contiguous helical images of the facial bones were obtained without IV contrast. Contiguous helical images of the cervical spine were obtained without IV contrast. Multiplanar reconstructions were performed. FINDINGS: There are no pathologic extra-axial fluid collections. The lateral, third, fourth ventricles are prominent, though stable and concordant with the appearance of the sulci. There is no evidence for acute intraparenchymal hemorrhage or infarct. There is neither mass nor mass effect. There is no shift of midline structures. The paranasal sinuses and mastoid air cells are clear. There are no osseous lesions. There are chronic bilateral nasal bone fractures. No acute fracture is identified. The ostiomeatal units are patent. The cervical vertebra are in normal alignment. There is mild disc height loss at C5/C6 and C6/C7 with anterior osteophyte formation. Disc heights and vertebral heights are otherwise well-preserved. There are no fractures. There is no prevertebral soft tissue swelling. There is no cervical lymphadenopathy. The visualized lung apices are clear. IMPRESSION: No evidence for acute intracranial injury. Stable ventriculomegaly. No evidence for acute injury to the cervical spine. Mild degenerative change within the lower cervical spine. No acute facial bone fractures demonstrated. Chronic bilateral nasal bone fractures identified.
--- NOTE | 2017-07-29 18:02 | CT SCAN REPORT ---
EXAMINATION: CT CHEST WITHOUT IV CONTRAST CT ABDOMEN AND PELVIS WITHOUT IV CONTRAST CLINICAL INFORMATION: 62-year-old male with history of syncope and fall. COMPARISON: CT images of abdomen pelvis from 03/10/2017. TECHNIQUE: Noncontrast multidetector CT imaging examination of the chest, abdomen and pelvis was performed. Axial images are presented at 0.625 mm and 5 mm slice thickness. Coronal and sagittal reformatted images were generated at the technologist's workstation and submitted for review. DLP: 466 mGy-cm FINDINGS: CHEST - LUNGS and PLEURA: Trachea and central airways are widely patent and normal in caliber. Small, 0.2 cm calcified granulomas of the right middle lobe and right lower lobe. A 0.2 cm noncalcified nodule in the left lower lobe is unchanged compared to 03/10/2017. No suspicious nodule, mass, consolidation, pleural effusion or pneumothorax. MEDIASTINUM: Esfx-wc-[id number] atherosclerotic calcification of coronary arteries. Heart size is normal. Pulmonary arteries and thoracic aorta are normal in caliber. No pericardial effusion. No pneumomediastinum. The esophagus has normal wall thickness. Multinodular thyroid gland. The largest, visualized thyroid nodule with rim calcification measures up to 0.9 cm. LYMPHATICS: No pathologic sized axillary, hilar or mediastinal lymph nodes. CHEST WALL/BONES: Thoracic vertebra have normal height and alignment. No acute fractures in anterior or posterior element. The sternum is normal. Acute, nondisplaced fractures of left lateral seventh and eighth ribs. ABDOMEN AND PELVIS - HEPATOBILIARY: Liver has normal size, contour and attenuation. 0.9 cm simple cyst in the right lobe of the liver. No suspicious liver lesion. Gallbladder contains a 1.5 cm stone. No gallbladder wall edema or pericholecystic fluid. No intrahepatic or extrahepatic bile duct dilatation. PANCREAS: Unremarkable. SPLEEN: Unremarkable. ADRENAL GLANDS: Unremarkable. KIDNEYS, URETERS, BLADDER: Unremarkable. GI TRACT AND PERITONEUM: Bowel loops are normal in caliber. No evidence of acute obstruction along the gastrointestinal tract. There appears to be chronic, circumferential wall thickening of the rectum which contains a pxrj-wu-gflzdlzy amount of fecal material. There is subtle perirectal fat stranding. No ascites or pneumoperitoneum. ABDOMINAL WALL: Unremarkable. VASCULAR: Mild atherosclerosis of the abdominal aorta without aneurysm. No retroperitoneal hematoma. LYMPH NODES: No pathologic sized lymph nodes within the abdomen or pelvis. PELVIC VISCERA: Again noted is the left testicle within the distal left inguinal canal. The prostate gland is grossly unremarkable. No pelvic free fluid. OSSEOUS STRUCTURES: The lumbar vertebra have normal height and alignment. No acute fractures in the lumbar spine. Within the lumbar spine, facet arthropathy is most pronounced on the right at L5-S1. Bone island of the left ischium. No suspicious osseous lesions. Pelvic bones and proximal femurs are intact. IMPRESSION: 1. There are acute, nondisplaced fractures of the left lateral seventh and eighth ribs. No pulmonary contusion, pneumothorax or pleural effusion. 2. No acute traumatic findings in the abdomen or pelvis. 3. Cholelithiasis without cholecystitis. 4. There appears to be chronic circumferential wall thickening of the rectum, and subtle perirectal fat stranding is noted. These findings require further clinical correlation. Query whether whether there are clinical signs/symptoms of mild proctitis.
--- NOTE | 2017-07-29 19:35 | History & Physical ---
See Addendum Too Johansen MD 07/29/171934: General Information and HPI History of Present Illness: Mr. Waldrop is a 62-year-old male with past medical history of cognitive impairment, hypertension, hyperlipidemia, chronic kidney disease, diabetes mellitus, osteoporosis who presents after a fall from [facility]. History is was obtained from consulting group analyst, staff, and his sister who is his guardian because the patient is unable to reply to questions. According to reports, the [facility] staff was preparing to take the patient to his regularly scheduled doctor's appointment when he suddenly fell forward. The fall was witnessed. The staff notes that he did not try to stop himself from falling and fell directly onto his face. They note that he seemed to lose consciousness for about 5-10 seconds and then was groggy upon awakening. They activated EMS and he was taken to the emergency room for further evaluation. Staff notes that he has not been sick recently but that he has had a medication change. Previously, he was becoming dizzy from taking amlodipine and so it was stopped. However the amlodipine was restarted on June 17. He has not had any recent dizzy episodes according to the staff. Talking to the patient, he denies any pain currently but otherwise is unable to recall any events. The staff denies him having any shaking or incontinence during the episode. Allergies/Medications Allergies: Coded Allergies: lactose (Mild, VOMITING 05/29/15) phenytoin (UNKNOWN 05/29/15) Home Med list Alendronate Sodium (Fosamax) 70 MG TABLET 1 TAB PO QFRI OSTEOPOROSIS ( Reported) in the morning, at least 30 minutes before the first food, beverage, or medication of the day Atorvastatin Calcium (Lipitor) 20 MG TABLET 1 TAB PO DAILY cholesterol ( Reported) Bisacodyl (Dulcolax) 10 MG SUPP.RECT 1 SUP RC Wednesday CONSTIPATION (Reported) Bisacodyl (Dulcolax) 10 MG SUPP.RECT 1 SUP RC PRN CONSTIPATION (Reported) Calcitriol 0.25 MCG CAPSULE 1 CAP PO Wednesday SUPPLEMENT (Reported) Carbamazepine 100 MG/5 ML (5 ML) ORAL.SUSP 20 ML PO BID BEHAVIORAL DISTURBANCES (Reported) Cholecalciferol (Vitamin D3) (Vitamin D3) 5,000 UNIT/ML DROPS 6.25 ML PO Q30D VITAMIN SUPPORT (Reported) Clonazepam (Klonopin) 1 MG TABLET 1 TAB PO QAM BEHAVIOR (Reported) Clonazepam (Klonopin) 0.5 MG TABLET 3 TAB PO QHS BEHAVIOR (Reported) Emollient Combination No.92 (Lubriderm Daily Moisture) 177 ML LOTION 1 DENISE TOP DAILY SKIN (Reported) Esomeprazole (Nexium) 40 MG CAPSULE.DR 1 CAP PO DAILY GI (Reported) Ferrous Sulfate 325 MG (65 MG IRON) TABLET 1 TAB PO DAILY SUPPLEMENT ( Reported) Gemfibrozil (Lopid) 600 MG TABLET 1 TAB PO BID CHOLESTEROL (Reported) Lactase (Lactaid) (Unknown Strength) TABLET (Unknown Dose) PO AD PRN LACTOSE INTOLERANCE (Reported) Magnesium Hydroxide (Milk Of Magnesia) 400 MG/5 ML ORAL.SUSP 30 ML PO Q3D CONSTIPATION (Reported) Megestrol Acetate 40 MG TABLET 1 TAB PO DAILY SUPPLEMENT (Reported) Metoprolol Tartrate (Lopressor) 100 MG TABLET 1 TAB PO BID heart (Reported) Multivit-Minerals/Ferrous Gluc (Centrum Multivit-Mineral Liq) 9 MG IRON/15 ML LIQUID 15 ML PO DAILY VITAMIN SUPPORT (Reported) Nut.tx.imp.renal Fxn,Lac-Reduc (Nepro Carb Steady) (Unknown Strength) LIQUID ( Unknown Dose) PO BID SUPPLEMENT (Reported) Polyethylene Glycol 3350 (Miralax) 17 GRAM POWD.PACK 1 PAC PO DAILY CONSTIPATION (Reported) dissolve in water Psyllium Husk (Metamucil) (Unknown Strength) POWDER 1 TBSP PO DAILY GI ( Reported) Saliva Substitute Combo No.9 (Biotene) 473 ML MOUTHWASH 1 SPRAY PO BID MOISTURIZING (Reported) Sodium Bicarbonate 650 MG TABLET 1 TAB PO BID SUPPLEMENT (Reported) Venlafaxine HCl 75 MG TABLET 2 TAB PO BID BEHAVIOR (Reported) Ziprasidone HCl (Geodon) 80 MG CAPSULE 1 CAP PO QPM BEHAVIOR (Reported) Past History Travel History Traveled to [place] past 21 day No Medical History Neurological: MENTAL RETARDATION EENT: NONE Cardiovascular: hypertension, hyperlipidemia Respiratory: NONE Gastrointestinal: H-PYLORI Hepatic: NONE Renal: chronic kidney disease, UTI'S, STAGE 3 Musculoskeletal: NONE Psychiatric: AFFECTIVE DISORDER, PASSIVE/AGRESSIVE Endocrine: NONE Blood Disorders: NONE Cancer(s): NONE CLOTH DOFFER/Reproductive: NONE History of MRSA: No History of VRE: No History of CDIFF: No Tetanus Vaccine: 04/12/16 Surgical History Surgical History: non-contributory, N Past Family/Social History Family History Relations & Conditions if any BROTHER (Prostate cancer Hypertension). Psychosocial History Primary Language: Martiniquais ETOH Use: denies use Illicit Drug Use: denies illicit drug use Functional Ability ADLs Independent: dressing, eating, toileting, bathing. Ambulation: independent IADLs Needs Assist: shopping, housework, finances, food prep, telephone, transportation, medication admin. Review of Systems Review of Systems Constitutional: Reports: no symptoms. EENTM: Reports: no symptoms. Cardiovascular: Reports: no symptoms. Respiratory: Reports: no symptoms. GI: Reports: no symptoms. Genitourinary: Reports: no symptoms. Musculoskeletal: Reports: no symptoms. Skin: Reports: no symptoms. Neurological/Psychological: Reports: no symptoms. Hematologic/Endocrine: Reports: no symptoms. Immunologic/Allergic: Reports: no symptoms. All Other Systems: Reviewed and Negative Exam & Diagnostic Data Last 24 Hrs of Vital Signs/I&O Vital Signs Date Time Temp Pulse Resp B/P B/P Pulse O2 O2 Flow FiO2 Mean Ox Delivery Rate 07/29 1954 98.4 60 18 123/69 100 Room Air 07/29 1844 4.0 07/29 1821 98.3 07/29 1800 97.8 75 20 123/75 99 Room Air 07/29 1558 98 07/29 1552 98.3 63 20 92/64 100 Room Air Intake & Output 07/29 1600 07/29 0800 07/29 0000 Intake Total Output Total Balance Patient 67.132 kg Weight Weight Reported by Patient Measurement Method Physical Exam General Appearance Alert, Oriented X3, Cooperative, No Acute Distress HEENT pupils fixed and mid-dialated, dried blood on nose Cardiovascular Regular Rate, Normal S1, Normal S2 Lungs Clear to Auscultation Abdomen Normal Bowel Sounds, Soft, No Hepatospenomegaly Neurological difficult to assess given patient's mental retardation, grossly normal Extremities No Edema, Normal Pulses, No Tenderness/Swelling Last 24 Hrs of Labs/Luis: Laboratory Tests 07/29/172049: Urine Color YEL, Urine Clarity CLEAR, Urine pH 7.0, Ur Specific [place] 1.010, Urine Protein NEG, Urine Ketones NEG, Urine Nitrite NEG, Urine Bilirubin NEG, Urine Urobilinogen 0.2, Ur Leukocyte Esterase NEG, Ur Microscopic EXAM NOT REQUIRED, Urine Hemoglobin NEG, Urine Glucose NEG 07/29/17 1620: Anion Gap 12, Estimated GFR 28 L, BUN/Creatinine Ratio 21.7, Glucose 98, Calcium 9.5, Total Bilirubin 0.4, AST 28, ALT 30, Alkaline Phosphatase 118, Troponin I < 0.01, Total Protein 7.1, Albumin 4.2, Globulin 2.9, Albumin/ Globulin Ratio 1.4, Prolactin Pending, CBC w Diff NO MAN DIFF REQ, RBC 2.96 L, MCV 94.3 H, MCH 33.2 H, MCHC 35.2, RDW 12.6, MPV 8.1, Gran % 66.0, Lymphocytes % 25.7, Monocytes % 7.8, Eosinophils % 0.1, Basophils % 0.4, Absolute Granulocytes 2.3, Absolute Lymphocytes 0.9 L, Absolute Monocytes 0.3, Absolute Eosinophils 0, Absolute Basophils 0 Assessment/Plan Assessment: Mr. Waldrop is a 62-year-old male with past medical history of cognitive impairment, hypertension, hyperlipidemia, chronic kidney disease, diabetes mellitus, osteoporosis who presents after a fall from [facility]. On presentation, vital signs were T 98.3, HR 63, RR 20, BP 192/64, saturating 100% on room air. Laboratories were significant for white blood cell count 3.4, hemoglobin 9.8, MCV 94.3, BUN 52, creatinine 2.4 (baseline 2.0) negative LFTs, troponin less than 0.01. Urinalysis was negative. CT of the chest, abdomen, and pelvis showed acute nondisplaced fractures of left lateral seventh and eighth ribs with no pulmonary contusion or pneumothorax or pleural effusion and no acute traumatic findings in the abdomen or pelvis. There was chronic circumferential wall thickening of the rectum indicating possible proctitis. CT head/spine/maxillofacial showed no evidence of acute intracranial injury, no evidence of acute injury to the cervical spine, no acute facial bone fractures, and chronic bilateral nasal bone fractures identified. He will be placed in observation on telemetry and treated for the following problems: 1. Syncope 2. Acute mild traumatic brain injury 3. Acute kidney injury 4. Macrocytic anemia 5. Leukopenia 6. Acute nondisplaced fractures of the left seventh and eighth ribs #Syncope: Patient presents after a fall during which he seemed he lost consciousness and concussed his head. It is difficult to assess the severity of the concussion given his history of mental retardation. However, he is opening his eyes spontaneously and obeying commands. Imaging does not reveal any acute findings besides rib fractures. Given the history of restarting amlodipine and his acute kidney injury, most likely this was caused by a hypotensive episode. Other possible etiologies include heart arrhythmia and seizure. Patient did have a seizure more than 30 years ago but clinical presentation argues against this. -Hold hypertensive medications -IV fluid hydration -Consider TTE -Cardiology evaluation -Prolactin level -Orthostatic vital signs #Acute kidney injury: Likely prerenal azotemia in setting of hypotension. -Avoid nephrotoxins -Fluids as above #Macrocytic anemia: Patient tends to be anemic previously but this is lower than usual for him. Patient did have some bleeding from the fall but is not currently bleeding. -Iron studies, B12, folate -Monitor CBC -Monitor for bleeding #Leukopenia: Likely related to the stress of falling and fracturing his ribs. Patient does not seem to be infected at this time with negative urinalysis, CT chest. -If febrile, consider starting antibiotics #Chronic medical problems: -Continue other home medications DVT prophylaxis with heparin Ground food, nectar thick liquids DNR/DNI Please update his guardian, Lali Ansari, who is his sister at [phone]. As Ranked By This Provider Problem List: 1. Syncope Core Measures/Misc (11/22) Acute Coronary Syndrome ACS Diagnosis: No Congestive Heart Failure Congestive Heart Failure Diagnosis No Cerebrovascular Accident CVA/TIA Diagnosis: No VTE (View Protocol) VTE Risk Factors Age>40 No Mechanical VTE Prophylaxis d/t N/A MechProphylax Ordered No VTE Pharm Prophylaxis d/t NA PharmProphylax ordered Sepsis (View protocol) Sepsis Present: No If YES complete Sepsis Event Note If YES complete Sepsis Event Note Jed Jasmine 07/29/172006: Core Measures/Misc (11/22) Sepsis (View protocol) If YES complete Sepsis Event Note If YES complete Sepsis Event Note Resident Review Statement Resident Statement: examined this patient, discussed with operations intern, agreed with operations intern, reviewed EMR data (avail), reviewed images Other Findings: This is a 62 [facility] a [facility] with significant past medical history of mental retardation, hypertension, CKD stage 4 and hyperlipidemia who was brought in by ambulance today after experiencing a witnessed the fall. The patient fall on his face and while he was going down did not try to protect himself hitting the floor hard with his face and resulting in bleeding from the nose and a laceration. It appears like the patient was unconscious on his way down. This patient has had falls in the past but has not fallen for the past 1 year. She was on his way to the doctor for a routine checkup and he denies any restriction in food or fluid intake or change of medication in the near past. The patient is nonverbal and unable to provide any history therefore is difficult to assess for chest pain, palpitations, changes in his vision, headaches or nausea vomiting or diarrhea. There are no objective symptoms or signs as per the caregiver. There was no incontinence after the fall and it's reported there was no jerking movement On arrival the patient was slightly hypotensive 92/64 heart rate of 63 respiration of 20 of April 98.3 and saturating 100% on room air. Patient had positive orthostatic vitals. Patient received 1 bolus of normal saline blood pressure picked up nicely. When we examined the patient was seated comfortably on the bed not in any acute distress he was Cordial. He has a laceration on the left side of the nose with dried blood clots on both nostrils and a little bit in the mouth there is no and a laceration on the scalp or any other part of the body. The nose structure appears to have experienced fracture in the past supported by CT scan of the head. The mucous membranes appear dry CVS: Normal S1-S2 no murmurs Chest: Clear lungs bilaterally Abdomen: Soft nontender moving with respiration normal bowel sounds Extremities: No edema Labs: Anemia H&H H&H 9.8 and 27.9 has increased BUN of 52 and creatinine of 2.4 baseline is around 2.0 he has GFR of 28 which makes it stage IV CKD, CT: No any fascia fracture no neck spinal injury stable ventriculomegaly without acute brain manifestations, acute nondisplaced fracture of the left lateral seventh and eighth rib without pulmonary contusion Assessment: Orthostatic hypotension likely secondary to in adequate intake Presyncope/fall, secondary to orthostatic hypotension Acute on chronic kidney disease stage 4 Rib fracture secondary to fall Hypertension Mental retardation Strict behavioral and mood disturbances Hyperlipidemia Plan: Place in observation in telemetry, look for possible arrhythmias Vitals every shift Check orthostatic vitals now and a.m. Will hold antihypertensive medications overnight Maintain the patient on normal saline at 75 mL/h overnight Repeat BEP in a.m. Serial troponin and monitoring and evaluation advisor blood pressure Acute on chronic kidney disease patient has baseline creatinine of 2.0 but presented with creatinine of 2.4 Will continue with gentle hydration and assess renal function a.m. Patient blood pressure medications on hold continue to monitor blood pressure and consider restarting if blood pressure escalates Mental retardation/behavioral and mood disturbances: We'll continue with home meds that include Tegretol, Klonopin, Patient has had it off going around to drink regular fluid will provide sitter We'll continue with multivitamins and Lipitor Patient has dysphagia and is on ground diet with nectar thick liquids, swallow evaluation for a.m. Subcutaneous heparin for DVT prophylaxis CODE STATUS: DNI/R
[2017-07-29] MEDS ORDERED: CALCITRIOL0.25 MC1 PO (20:47)
[2017-07-29] MEDS ORDERED: METAMUCIL660 GM PO (20:51)
[2017-07-29] MEDS ORDERED: VENLAFAXINE HCL75 MG PO (20:51)
[2017-07-29] MEDS ORDERED: NEPRO CARB STE PO (21:14)
[2017-07-29] MEDS ORDERED: FERROUS SULFAT325 M3 PO (21:15)
[2017-07-29] MEDS ORDERED: BIOTENE473 ML PO (21:18)
[2017-07-29] MEDS ORDERED: LUBRIDERM DAIL177 ML TOP (21:24)
[2017-07-29] MEDS ORDERED: DULCOLAX10 M1 RC (21:36)
[2017-07-29 22:00] VITALS: BP 126/76
[2017-07-30 04:32] LABS: ABSOLUTE BASOPHIL COUNT 0 /CUMM (0.0-0.2); ABSOLUTE EOSINOPHIL COUNT 0 /CUMM (0.0-0.7); ABSOLUTE GRANULOCYTE CT 3.8 /CUMM (1.4-6.5); ABSOLUTE LYMPH COUNT 1.1 /CUMM (1.2-3.4); ABSOLUTE MONOCYTE COUNT 0.4 /CUMM (0.10-0.60); BASOPHIL % 0.1 % (0.0-2.0); EOSINOPHIL % 0.1 % (0-5); GRANULOCYTE % 70.8 % (42.2-75.2); HEMATOCRIT 29.4 % (42-52); MEAN CORPUSCULAR HGB 32.6 PG (27.0-31.0); MEAN CORPUSCULAR HGB CONC 34.5 G/DL (33.0-37.0); MEAN CORPUSCULAR VOLUME 94.3 FL (80.0-94.0); MEAN PLATELET VOLUME 8.3 FL (7.4-10.4); PLATELET COUNT 185 /CUMM (130-400); RED BLOOD CELL CT 3.11 /CUMM (4.70-6.10)
[2017-07-30 04:36] LABS: WHITE BLOOD CELL COUNT 5.4 /CUMM (4.8-10.8)
[2017-07-30 06:31] VITALS: BP 128/76
--- NOTE | 2017-07-30 10:24 | Cons- Cardiology ---
General Information and HPI Consulting Request Date of Consult: 07/30/17 Requested By: Jd Douglas MD Reason for Consult: Syncope Source of Information: old records Exam Limitations: confusion History of Present Illness: The patient is a 62-year-old gentleman with a past medical history of mental retardation, hypertension, hyperlipidemia, diabetes insipidus and chronic kidney disease. He presents to our hospital following a syncopal episode, described as a sudden fall. The history is obtained from the patient's medical records and records from his retirement. He was noted to have a sudden syncopal episode while standing. There is no prodrome described, and the patient did not attempt to shield his fall. There was a period of unconsciousness, lasting several seconds followed by possible confusion afterwards versus a post ictal state. Given the patient's historian capabilities, it is unclear as to whether or not he had symptoms of palpitations nor lightheadedness prior to the event. No other events were noted recently. Of note, the patient has had prior seizures approximately 30 years ago; however, no recurrences as per his records. The patient had previously been on amlodipine for treatment of his hypertension; however, was symptomatically dizzy with the same. Due to recurrence of hypertension however amlodipine was restarted. Allergies/Medications Allergies: Coded Allergies: lactose (Mild, VOMITING 05/29/15) phenytoin (UNKNOWN 05/29/15) Home Med List: Alendronate Sodium (Fosamax) 70 MG TABLET 1 TAB PO QFRI OSTEOPOROSIS ( Reported) in the morning, at least 30 minutes before the first food, beverage, or medication of the day Atorvastatin Calcium (Lipitor) 20 MG TABLET 1 TAB PO DAILY cholesterol ( Reported) Bisacodyl (Dulcolax) 10 MG SUPP.RECT 1 SUP RC Wednesday CONSTIPATION (Reported) Bisacodyl (Dulcolax) 10 MG SUPP.RECT 1 SUP RC PRN CONSTIPATION (Reported) Calcitriol 0.25 MCG CAPSULE 1 CAP PO Wednesday SUPPLEMENT (Reported) Carbamazepine 100 MG/5 ML (5 ML) ORAL.SUSP 20 ML PO BID BEHAVIORAL DISTURBANCES (Reported) Cholecalciferol (Vitamin D3) (Vitamin D3) 5,000 UNIT/ML DROPS 6.25 ML PO Q30D VITAMIN SUPPORT (Reported) Clonazepam (Klonopin) 1 MG TABLET 1 TAB PO QAM BEHAVIOR (Reported) Clonazepam (Klonopin) 0.5 MG TABLET 3 TAB PO QHS BEHAVIOR (Reported) Emollient Combination No.92 (Lubriderm Daily Moisture) 177 ML LOTION 1 DENISE TOP DAILY SKIN (Reported) Esomeprazole (Nexium) 40 MG CAPSULE.DR 1 CAP PO DAILY GI (Reported) Ferrous Sulfate 325 MG (65 MG IRON) TABLET 1 TAB PO DAILY SUPPLEMENT ( Reported) Gemfibrozil (Lopid) 600 MG TABLET 1 TAB PO BID CHOLESTEROL (Reported) Lactase (Lactaid) (Unknown Strength) TABLET (Unknown Dose) PO AD PRN LACTOSE INTOLERANCE (Reported) Magnesium Hydroxide (Milk Of Magnesia) 400 MG/5 ML ORAL.SUSP 30 ML PO Q3D CONSTIPATION (Reported) Megestrol Acetate 40 MG TABLET 1 TAB PO DAILY SUPPLEMENT (Reported) Metoprolol Tartrate (Lopressor) 100 MG TABLET 1 TAB PO BID heart (Reported) Multivit-Minerals/Ferrous Gluc (Centrum Multivit-Mineral Liq) 9 MG IRON/15 ML LIQUID 15 ML PO DAILY VITAMIN SUPPORT (Reported) Nut.tx.imp.renal Fxn,Lac-Reduc (Nepro Carb Steady) (Unknown Strength) LIQUID ( Unknown Dose) PO BID SUPPLEMENT (Reported) Polyethylene Glycol 3350 (Miralax) 17 GRAM POWD.PACK 1 PAC PO DAILY CONSTIPATION (Reported) dissolve in water Psyllium Husk (Metamucil) (Unknown Strength) POWDER 1 TBSP PO DAILY GI ( Reported) Saliva Substitute Combo No.9 (Biotene) 473 ML MOUTHWASH 1 SPRAY PO BID MOISTURIZING (Reported) Sodium Bicarbonate 650 MG TABLET 1 TAB PO BID SUPPLEMENT (Reported) Venlafaxine HCl 75 MG TABLET 2 TAB PO BID BEHAVIOR (Reported) Ziprasidone HCl (Geodon) 80 MG CAPSULE 1 CAP PO QPM BEHAVIOR (Reported) Current Medications: Current Medications Sig/Rubens Start time Last Medication Dose Route Stop Time Status Admin Acetaminophen 1,000 MG Q6P PRN 07/29 2144 AC IV Acetaminophen 0 .STK-MED ONE 07/29 1820 DC IV Acetaminophen 1,000 MG ONCE ONE 07/29 181 DC 07/29 N/A 1 UNIT IV 07/29 182 182 Amoxicillin 500 MG ONCE ONE 07/29 191 DC 07/29 PO 07/29 191 191 Amoxicillin 500 MG ONCE ONE 07/29 1900 CAN PO 07/29 1901 Atorvastatin Calcium 20 MG 1700 07/30 1700 AC PO Bisacodyl 10 MG 07/30 0900 AC 07/30 AL 0948 Bisacodyl 10 MG DAILY NEEDED PRN 07/29 2199 AC AL Calcitriol 0.25 MCG 07/30 09 AC 07/30 PO 0950 Carbamazepine 400 MG BID 07/30 09 DC PO Carbamazepine 400 MG BID 07/29 2345 AC 07/30 PO 0950 Clonazepam 1 MG QAM 07/30 1000 AC 07/30 PO 08/06 0959 0951 Clonazepam 1 MG QAM 07/30 09 DC PO 08/06 0859 Clonazepam 1.5 MG AT BEDTIME 07/29 2215 AC 07/30 PO 08/05 221 0100 Ferrous Sulfate 325 MG DAILY 07/30 09 AC 07/30 PO 0949 Gemfibrozil 600 MG BID 07/30 09 AC 07/30 PO 0949 Glycerin 1 SPRAY BID 07/30 09 AC 07/30 PO 0950 Glycerin/Mineral Oil 1 DENISE DAILY 07/30 09 AC 07/30 TOP 0951 Heparin Sodium 5,000 UNIT Q8 07/29 2199 AC 07/30 (Porcine) SC 0622 Lactated Ringer's 1,000 ML ONCE ONE 07/29 2129 DC 07/29 IV 07/30 0529 2302 Morphine Sulfate 2 MG Q6PRN PRN 07/29 2145 AC IV Omeprazole 40 MG DAILY AC 07/30 0700 AC PO Polyethylene Glycol 17 GM DAILY 07/30 09 AC 07/30 PO 0949 Psyllium Hydrophilic 1 PAC DAILY 07/30 09 AC 07/30 Mucilloid PO 0950 Sodium Chloride 1,000 ML Q10H 07/30 0600 AC 07/30 IV 07/30 1559 0625 Sodium Chloride 1,000 ML BOLUS ONE 07/29 1715 DC 07/29 IV 07/29 1814 1755 Venlafaxine HCl 150 MG BID 07/30 09 AC 07/30 PO 0949 Ziprasidone 80 MG QPM 07/30 2100 AC PO Review of Systems Review of Systems: A full review of systems has been unable to be obtained secondary to the patient 's mental status Past History Travel History Traveled to [place] past 21 day No Medical History Neurological: MENTAL RETARDATION EENT: NONE Cardiovascular: hypertension, hyperlipidemia Respiratory: NONE Gastrointestinal: H-PYLORI Hepatic: NONE Renal: chronic kidney disease, UTI'S, STAGE 3 Musculoskeletal: NONE Psychiatric: AFFECTIVE DISORDER, PASSIVE/AGRESSIVE Endocrine: NONE Blood Disorders: NONE Cancer(s): NONE 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 Psychosocial History Primary Language: Kazakh Smoking Status: Never Smoked ETOH Use: denies use Illicit Drug Use: denies illicit drug use Functional Ability ADLs Independent: dressing, eating, toileting, bathing. Ambulation: independent IADLs Needs Assist: shopping, housework, finances, food prep, telephone, transportation, medication admin. Exam & Diagnostic Data Vital Signs and I&O Vital Signs Date Time Temp Pulse Resp B/P B/P Pulse O2 O2 Flow FiO2 Mean Ox Delivery Rate 07/30 0631 98.7 65 20 128/76 100 Room Air 07/29 2200 98.7 66 22 126/76 98 07/29 2110 66 125/74 07/29 1955 98.4 60 18 123/69 100 Room Air 07/29 1844 4.0 07/29 1821 98.3 07/29 1800 97.8 75 20 123/75 99 Room Air 07/29 1558 98 07/29 1552 98.3 63 20 92/64 100 Room Air Intake & Output 07/30 1600 07/30 0800 07/30 0000 07/29 1600 07/29 0800 07/29 0000 Intake Total 220 1200 Output Total 1550 450 Balance -1330 750 Intake, IV 1000 Intake, Oral 220 200 Output, Urine 1550 450 Patient 142 lb 144 lb 148 lb Weight Weight Reported by Patient Measurement Method Physical Exam: General: Nontoxic, no apparent distress. HEENT: Sclera and conjunctiva within normal limits, without xanthelasmas. Neck: Carotids 2+ without bruits. Respiratory: Clear to auscultation, air movement is good, without accessory respiratory muscle use. Heart: Regular rate and rhythm, without murmurs, without JVD. Abdomen: Soft, nontender, no masses, normoactive bowel sounds. Extremities: Without clubbing, cyanosis, without edema. Neuro: Nonfocal exam, strength, 5 out of 5 Skin: Within normal limits without lesions. Psych: Mood and affect: Normal Labs/Luis Results: Laboratory Tests 07/30 07/30 07/29 0405 0401 7116 Chemistry Sodium (137 - 145 mmol/L) 146 H Potassium (3.5 - 5.1 mmol/L) 3.5 Chloride (98 - 107 mmol/L) 106 Carbon Dioxide (22 - 30 mmol/L) 27 Anion Gap (5 - 16) 13 BUN (9 - 20 mg/dL) 40 H Creatinine (0.7 - 1.2 mg/dL) 2.1 H Estimated GFR (>60 ml/min) 32 L BUN/Creatinine Ratio (7 - 25 %) 19.0 Troponin I (<0.11 ng/ml) < 0.01 < 0.01 Hematology CBC w Diff NO MAN DIFF REQ WBC (4.8 - 10.8 /CUMM) 5.4 RBC (4.70 - 6.10 /CUMM) 3.11 L Hgb (14.0 - 18.0 G/DL) 10.1 L Hct (42 - 52 %) 29.4 L MCV (80.0 - 94.0 FL) 94.3 H MCH (27.0 - 31.0 PG) 32.6 H MCHC (33.0 - 37.0 G/DL) 34.5 RDW (11.5 - 14.5 %) 13.0 Plt Count (130 - 400 /CUMM) 185 MPV (7.4 - 10.4 FL) 8.3 Gran % (42.2 - 75.2 %) 70.8 Lymphocytes % (20.5 - 51.1 %) 21.3 Monocytes % (1.7 - 9.3 %) 7.7 Eosinophils % (0 - 5 %) 0.1 Basophils % (0.0 - 2.0 %) 0.1 Absolute Granulocytes (1.4 - 6.5 /CUMM) 3.8 Absolute Lymphocytes (1.2 - 3.4 /CUMM) 1.1 L Absolute Monocytes (0.10 - 0.60 /CUMM) 0.4 Absolute Eosinophils (0.0 - 0.7 /CUMM) 0 Absolute Basophils (0.0 - 0.2 /CUMM) 0 07/29 07/29 2050 1620 Chemistry Sodium (137 - 145 mmol/L) 139 Potassium (3.5 - 5.1 mmol/L) 3.7 Chloride (98 - 107 mmol/L) 98 Carbon Dioxide (22 - 30 mmol/L) 28 Anion Gap (5 - 16) 12 BUN (9 - 20 mg/dL) 52 H Creatinine (0.7 - 1.2 mg/dL) 2.4 H Estimated GFR (>60 ml/min) 28 L BUN/Creatinine Ratio (7 - 25 %) 21.7 Glucose (65 - 99 mg/dL) 98 Calcium (8.4 - 10.2 mg/dL) 9.5 Iron (49 - 181 ug/dL) 89 TIBC (261 - 462 ug/dL) 364 Ferritin (17.9 - 464 ng/mL) 280.0 Total Bilirubin (0.2 - 1.3 mg/dL) 0.4 AST (17 - 59 U/L) 28 ALT (21 - 72 U/L) 30 Alkaline Phosphatase (< 127 U/L) 118 Troponin I (<0.11 ng/ml) < 0.01 Total Protein (6.3 - 8.2 g/dL) 7.1 Albumin (3.5 - 5.0 g/dL) 4.2 Globulin (1.9 - 4.2 gm/dL) 2.9 Albumin/Globulin Ratio (1.1 - 2.2 %) 1.4 Vitamin B12 (239 - 931 pg/mL) 621 Folate (2.76 - 20.0 ng/mL) > 20.0 H Prolactin (3.7 - 17.9 ng/mL) 14.8 Hematology CBC w Diff NO MAN DIFF REQ WBC (4.8 - 10.8 /CUMM) 3.4 L RBC (4.70 - 6.10 /CUMM) 2.96 L Hgb (14.0 - 18.0 G/DL) 9.8 L Hct (42 - 52 %) 27.9 L MCV (80.0 - 94.0 FL) 94.3 H MCH (27.0 - 31.0 PG) 33.2 H MCHC (33.0 - 37.0 G/DL) 35.2 RDW (11.5 - 14.5 %) 12.6 Plt Count (130 - 400 /CUMM) 195 MPV (7.4 - 10.4 FL) 8.1 Gran % (42.2 - 75.2 %) 66.0 Lymphocytes % (20.5 - 51.1 %) 25.7 Monocytes % (1.7 - 9.3 %) 7.8 Eosinophils % (0 - 5 %) 0.1 Basophils % (0.0 - 2.0 %) 0.4 Absolute Granulocytes (1.4 - 6.5 /CUMM) 2.3 Absolute Lymphocytes (1.2 - 3.4 /CUMM) 0.9 L Absolute Monocytes (0.10 - 0.60 /CUMM) 0.3 Absolute Eosinophils (0.0 - 0.7 /CUMM) 0 Absolute Basophils (0.0 - 0.2 /CUMM) 0 Urines Urine Color (YEL,AMB,STR) YEL Urine Clarity (CLEAR) CLEAR Urine pH (5.0 - 8.0) 7.0 Ur Specific [place] (1.001 - 1.035) 1.010 Urine Protein (NEG,<30 MG/DL) NEG Urine Ketones (NEG) NEG Urine Nitrite (NEG) NEG Urine Bilirubin (NEG) NEG Urine Urobilinogen (0.1 - 1.0 EU/dl) 0.2 Ur Leukocyte Esterase (NEG) NEG Ur Microscopic EXAM NOT REQUIRED Urine Hemoglobin (NEG) NEG Urine Glucose (N MG/DL) NEG Assessment/Plan Assessment/Plan 62-year-old gentleman with a past medical history of mental retardation, hypertension, hyperlipidemia, diabetes insipidus and chronic kidney disease. He presents to our hospital following a syncopal episode, described as a sudden fall. Fall: The patient presents with a sudden fall/syncope. The etiology is currently unclear. Telemetry demonstrates no significant arrhythmias. Of note, the patient had a recent nuclear stress test which demonstrated no evidence of underlying ischemia and an overall preserved LV systolic function. Given his recent restart of amlodipine, orthostatic blood pressure should be checked to exclude this as a possible etiology. He will remain on telemetry, and consideration for a linq implant will as well be given. An echocardiogram was well be obtained. The patient underwent an electroencephalogram in 2016 with no evidence of epileptiform waves. Hypertension: The patient has hypertension, which is currently controlled on his medication regimen. We will continue to monitor and adjust his regimen as needed. Thank you for allowing us to participate in the care of your patient. Please do not hesitate to contact us further with any questions. Sincerely, Afshin Shepard MD [facility] Consult Acknowledgment - Thank you for your consult request.
--- NOTE | 2017-07-30 11:50 | PN-Observation ---
Observation Note Observation Note _ I have personally examined BRUNO WALDROP. him disposition is uncertain at this time. Before a determination can be made, he requires continued observation for the following reasons [syncope]. Assessment/Plan Medical Assessment: Mr. Waldrop is a 62-year-old male with past medical history of cognitive impairment, hypertension, hyperlipidemia, chronic kidney disease, diabetes mellitus, osteoporosis who presents after a fall from [facility]. Patient is on observation on telemetry and treated for the following problems: 1. Syncope 2. Acute mild traumatic brain injury 3. Acute kidney injury 4. Macrocytic anemia 5. Leukopenia 6. Acute nondisplaced fractures of the left seventh and eighth ribs #Syncope: Patient presents after a fall during which he seemed he lost consciousness and concussed his head. It is difficult to assess the severity of the concussion given his history of mental retardation. However, he is opening his eyes spontaneously and obeying commands. Imaging does not reveal any acute findings besides rib fractures. Given the history of restarting amlodipine and his acute kidney injury, most likely this was caused by a hypotensive episode. Other possible etiologies include heart arrhythmia and seizure. Patient did have a seizure more than 30 years ago but clinical presentation argues against this. Syncope is likely secondary to dehydration and hypotension. Patient evaluated by cardiology and was -anti-hypertensive medications were held -IV fluid hydration -orthostatic vitals checked by housestaff were negative -Cardiology evaluation #KRISTINA on CKD Likely prerenal azotemia in setting of hypotension. Resolved with IV fluid hydration. -Avoid nephrotoxins -Monitor I/O, renal function -Encourage PO hydration #Macrocytic anemia: Patient tends to be anemic previously but this is lower than usual for him. Patient did have some bleeding from the fall but is not currently bleeding. -Iron studies, B12, folate -Monitor CBC -Monitor for bleeding #Leukopenia:Resolved, afebrile, no signs of infection #Chronic medical problems: -Continue other home medications DVT prophylaxis with heparin Ground food, nectar thick liquids DNR/DNI Please update his guardian, Lali Ansari, who is his sister at [phone]. Problem List: 1. Syncope 2. Dehydration Subjective Follow-up For: Syncope Acute mild traumatic brain injury Acute kidney injury Macrocytic anemia Acute nondisplaced fractures of the left seventh and eighth ribs Tele-Events Since Last Visit: NSR: 62-68 Subjective: Patient was seen and examined. Patient denies any chest pain, dizziness, lightheadedness, shortness of breath, n/v/c/d, dysuria/hematuria. Patient denies fever/chills, abdominial pain. No acute events overnight. Review of Systems Constitutional: Reports: see HPI. Objective Last 24 Hrs of Vital Signs/I&O Vital Signs Date Time Temp Pulse Resp B/P B/P Pulse O2 O2 Flow FiO2 Mean Ox Delivery Rate 07/30 1400 98.7 71 20 130/74 99 Room Air 07/30 0631 98.7 65 20 128/76 100 Room Air 07/29 2200 98.7 66 22 126/76 98 07/29 2110 66 125/74 07/29 1955 98.4 60 18 123/69 100 Room Air 07/29 1844 4.0 07/29 1821 98.3 Intake & Output 07/30 1600 07/30 0800 07/30 0000 Intake Total 6339 194 2859 Output Total 350 1550 450 Balance 1050 -1330 750 Intake, IV 800 1000 Intake, Oral 600 220 200 Number 1 Bowel Movements Output, Urine 350 1550 450 Patient 142 lb 144 lb Weight Physical Exam General Appearance: Alert, Cooperative, No Acute Distress Skin Temp/Moisture Exam: Warm/Dry Sepsis Skin Exam (color): Normal for Ethnicity HEENT: Atraumatic, Mucous Membr. moist/pink Cardiovascular: Regular Rate, Normal S1, Normal S2 Lungs: Clear to Auscultation, Normal Air Movement Abdomen: Normal Bowel Sounds, Soft, No Tenderness Extremities: No Clubbing, No Cyanosis, No Edema, Normal Pulses, No Tenderness/ Swelling Vascular: Normal Pulses, Pulses Symmetrical Current Medications: Current Medications Sig/Rubens Start time Last Medication Dose Route Stop Time Status Admin Acetaminophen 1,000 MG Q6P PRN 07/29 2144 AC IV Acetaminophen 0 .STK-MED ONE 07/29 1820 DC IV Acetaminophen 1,000 MG ONCE ONE 07/29 181 DC 07/29 N/A 1 UNIT IV 07/29 1828 182 Amoxicillin 500 MG ONCE ONE 07/29 1914 DC 07/29 PO 07/30 1915 191 Amoxicillin 500 MG ONCE ONE 07/29 1900 CAN PO 07/29 190 Atorvastatin Calcium 20 MG 1700 07/30 1700 AC 07/30 PO 1614 Bisacodyl 10 MG 07/30 0900 AC 07/30 NM 0948 Bisacodyl 10 MG DAILY NEEDED PRN 07/29 2199 AC NM Calcitriol 0.25 MCG 07/30 09 AC 07/30 PO 0950 Carbamazepine 400 MG BID 07/30 09 DC PO Carbamazepine 400 MG BID 07/29 2345 AC 07/30 PO 0950 Clonazepam 1 MG QAM 07/30 1000 AC 07/30 PO 08/06 0959 0951 Clonazepam 1 MG QAM 07/30 09 DC PO 08/06 0859 Clonazepam 1.5 MG AT BEDTIME 07/29 2215 AC 07/30 PO 08/05 221 0100 Ferrous Sulfate 325 MG DAILY 07/30 899 AC 07/30 PO 0949 Gemfibrozil 600 MG BID 07/30 09 AC 07/30 PO 0949 Glycerin 1 SPRAY BID 07/30 899 AC 07/30 PO 0950 Glycerin/Mineral Oil 1 DENISE DAILY 07/30 899 AC 07/30 TOP 0951 Heparin Sodium 5,000 UNIT Q8 07/29 2199 AC 07/30 (Porcine) SC 1342 Lactated Ringer's 1,000 ML ONCE ONE 07/29 2130 DC 07/29 IV 07/30 0529 2302 Morphine Sulfate 2 MG Q6PRN PRN 07/29 214 DC IV Omeprazole 40 MG DAILY AC 07/30 0700 AC PO Patient Medication 1 ED ONE ONE 07/30 1430 DC Teaching ED 07/30 1431 Polyethylene Glycol 17 GM DAILY 07/30 09 AC 07/30 PO 0949 Psyllium Hydrophilic 1 PAC DAILY 07/30 09 AC 07/30 Mucilloid PO 0950 Sodium Chloride 1,000 ML Q10H 07/30 06 DC 07/30 IV 07/30 1559 0625 Venlafaxine HCl 150 MG BID 07/30 09 AC 07/30 PO 0949 Ziprasidone 80 MG QPM 07/30 2100 AC PO Last 24 Hrs of Labs/Mics: Laboratory Tests 07/30/17 0405: Troponin I < 0.01 07/30/17 0405: Anion Gap 13, Estimated GFR 32 L, BUN/Creatinine Ratio 19.0, CBC w Diff NO MAN DIFF REQ, RBC 3.11 L, MCV 94.3 H, MCH 32.6 H, MCHC 34.5, RDW 13.0, MPV 8.3, Gran % 70.8, Lymphocytes % 21.3, Monocytes % 7.7, Eosinophils % 0.1, Basophils % 0.1, Absolute Granulocytes 3.8, Absolute Lymphocytes 1.1 L, Absolute Monocytes 0.4, Absolute Eosinophils 0, Absolute Basophils 0 07/29/172257: Troponin I < 0.01 07/29/172049: Urine Color YEL, Urine Clarity CLEAR, Urine pH 7.0, Ur Specific [place] 1.010, Urine Protein NEG, Urine Ketones NEG, Urine Nitrite NEG, Urine Bilirubin NEG, Urine Urobilinogen 0.2, Ur Leukocyte Esterase NEG, Ur Microscopic EXAM NOT REQUIRED, Urine Hemoglobin NEG, Urine Glucose NEG
[2017-07-30 14:00] VITALS: BP 130/74
--- NOTE | 2017-07-30 15:24 | Discharge Summary ---
Visit Information Visit Dates Admission Date: 07/29/17 Discharge Date: 08/01/17 Hospital Course Course Attending Physician: Jd Douglas MD Primary Care Physician: Jd Douglas MD Hospital Course: 62-year-old gentleman from [facility], with past medical history of cognitive impairment, hypertension, hyperlipidemia, chronic kidney disease, diabetes mellitus, osteoporosis admitted to [facility] on 07/29/17 for weakness fall. Hospital course: He was placed for observation on telemetry floor and given gentle IV fluids. His orthostatic vitals were negative. Telemetry demonstrated no significant arrhythmias. He ruled out for ACS with negative troponins and no acute changes on EKG. Given the patient's historian capabilities, it is unclear as to whether or not he had symptoms of palpitations nor lightheadedness prior to the event. Previously he been on amlodipine for treatment of his hypertension; however, was symptomatically dizzy with the same. Due to recurrence of hypertension however amlodipine was restarted. On this admission his amlodipine was held and will be held on discharge. Echocardiogram was done. Consideration for a linq implant will as well be given as outpatient. Acute on chronic kidney injury was noted on admission as baseline creatinine was 2.0 and he presented with creatinine of 2.4. Continue with home meds that include Tegretol, Klonopin, Ziprasidone,liptor ,Effexor. Complications: none Allergies: Coded Allergies: lactose (Mild, VOMITING 05/29/15) phenytoin (UNKNOWN 05/29/15) Significant Procedures: SERVICE DATE: 07/29/17-160 EXAM TYPE: CAT - CT CERV SPINE WO IV CONTRAST; CT HEAD WO IV CONTRAST; CT MAXILLOFACIAL W/O CON FINDINGS: There are no pathologic extra-axial fluid collections. The lateral, third, fourth ventricles are prominent, though stable and concordant with the appearance of the sulci. There is no evidence for acute intraparenchymal hemorrhage or infarct. There is neither mass nor mass effect. There is no shift of midline structures. The paranasal sinuses and mastoid air cells are clear. There are no osseous lesions. There are chronic bilateral nasal bone fractures. No acute fracture is identified. The ostiomeatal units are patent. The cervical vertebra are in normal alignment. There is mild disc height loss at C5/C6 and C6/C7 with anterior osteophyte formation. Disc heights and vertebral heights are otherwise well-preserved. There are no fractures. There is no prevertebral soft tissue swelling. There is no cervical lymphadenopathy. The visualized lung apices are clear. IMPRESSION: No evidence for acute intracranial injury. Stable ventriculomegaly. No evidence for acute injury to the cervical spine. Mild degenerative change within the lower cervical spine. No acute facial bone fractures demonstrated. Chronic bilateral nasal bone fractures identified. CT ABD & PELVIS W/O IV CONTRAS; CT CHEST WO IV CONTRAST FINDINGS: CHEST - LUNGS and PLEURA: Trachea and central airways are widely patent and normal in caliber. Small, 0.2 cm calcified granulomas of the right middle lobe and right lower lobe. A 0.2 cm noncalcified nodule in the left lower lobe is unchanged compared to 03/10/2017. No suspicious nodule, mass, consolidation, pleural effusion or pneumothorax. MEDIASTINUM: [id number] atherosclerotic calcification of coronary arteries. Heart size is normal. Pulmonary arteries and thoracic aorta are normal in caliber. No pericardial effusion. No pneumomediastinum. The esophagus has normal wall thickness. Multinodular thyroid gland. The largest, visualized thyroid nodule with rim calcification measures up to 0.9 cm. LYMPHATICS: No pathologic sized axillary, hilar or mediastinal lymph nodes. CHEST WALL/BONES: Thoracic vertebra have normal height and alignment. No acute fractures in anterior or posterior element. The sternum is normal. Acute, nondisplaced fractures of left lateral seventh and eighth ribs. ABDOMEN AND PELVIS - HEPATOBILIARY: Liver has normal size, contour and attenuation. 0.9 cm simple cyst in the right lobe of the liver. No suspicious liver lesion. Gallbladder contains a 1.5 cm stone. No gallbladder wall edema or pericholecystic fluid. No intrahepatic or extrahepatic bile duct dilatation. PANCREAS: Unremarkable. SPLEEN: Unremarkable. ADRENAL GLANDS: Unremarkable. KIDNEYS, URETERS, BLADDER: Unremarkable. GI TRACT AND PERITONEUM: Bowel loops are normal in caliber. No evidence of acute obstruction along the gastrointestinal tract. There appears to be chronic, circumferential wall thickening of the rectum which contains a [id number] amount of fecal material. There is subtle perirectal fat stranding. No ascites or pneumoperitoneum. ABDOMINAL WALL: Unremarkable. VASCULAR: Mild atherosclerosis of the abdominal aorta without aneurysm. No retroperitoneal hematoma. LYMPH NODES: No pathologic sized lymph nodes within the abdomen or pelvis. PELVIC VISCERA: Again noted is the left testicle within the distal left inguinal canal. The prostate gland is grossly unremarkable. No pelvic free fluid. OSSEOUS STRUCTURES: The lumbar vertebra have normal height and alignment. No acute fractures in the lumbar spine. Within the lumbar spine, facet arthropathy is most pronounced on the right at L5-S1. Bone island of the left ischium. No suspicious osseous lesions. Pelvic bones and proximal femurs are intact. IMPRESSION: 1. There are acute, nondisplaced fractures of the left lateral seventh and eighth ribs. No pulmonary contusion, pneumothorax or pleural effusion. 2. No acute traumatic findings in the abdomen or pelvis. 3. Cholelithiasis without cholecystitis. 4. There appears to be chronic circumferential wall thickening of the rectum, and subtle perirectal fat stranding is noted. These findings require further clinical correlation. Query whether whether there are clinical signs/symptoms of mild proctitis. Disposition Summary Disposition Principal Diagnosis: Syncope Additional Diagnosis: Cognitive impairment HTN HLD Diabetes Insipidus CKD Discharge Disposition: SNF Discharge Instructions General Discharge Information Code Status: Do Not Resucitate/Intubat Patient's Diet: Mechanical soft (Ground) [place] Patient's Activity: as tolerated Follow-Up Instructions/Appts: follow up with Roofing Applicator within one week of discharge for possible LINQ monitor placement follow up with Primary care doctor within two weeks of discharge Medications at Discharge Discharge Medications: Stop taking the following medications: Metoprolol Tartrate (Lopressor) 100 MG TABLET ORAL TWICE DAILY Continue taking these medications: Polyethylene Glycol 3350 (Miralax) 17 GRAM POWD.PACK 1 Packet ORAL DAILY Instructions: dissolve in water Comments: Last Taken: 03/15/17 Time: 10AM Gemfibrozil (Lopid) 600 MG TABLET 1 Tablet ORAL TWICE DAILY Carbamazepine (Carbamazepine) 100 MG/5 ML (5 ML) ORAL.SUSP 20 Milliliters ORAL TWICE DAILY Comments: NOT GIVEN IN HOSPITAL Clonazepam (Klonopin) 1 MG TABLET 1 Tablet ORAL Every Morning Comments: Last Taken: 03/15/17 Time: 10AM Clonazepam (Klonopin) 0.5 MG TABLET 3 Tablet ORAL TAKE AT BEDTIME Comments: Last Taken: 03/14/17 Time: 10PM Atorvastatin Calcium (Lipitor) 20 MG TABLET 1 Tablet ORAL DAILY Comments: Last Taken: 03/14/16 Time: 5:30PM Cholecalciferol (Vitamin D3) (Vitamin D3) 5,000 UNIT/ML DROPS 6.25 Milliliters ORAL ONCE A MONTH Comments: NOT GIVEN Multivit-Minerals/Ferrous Gluc (Centrum Multivit-Mineral Liq) 9 MG IRON/15 ML LIQUID 15 Milliliters ORAL DAILY Comments: DID NOT ADMINISTER Megestrol Acetate (Megestrol Acetate) 40 MG TABLET 1 Tablet ORAL DAILY Comments: Last Taken: 03/15/17 Time: 10AM Ziprasidone HCl (Geodon) 80 MG CAPSULE 1 Capsule ORAL Every night Comments: Last Taken: 03/14/17 Time: 10PM Bisacodyl (Dulcolax) 10 MG SUPP.RECT 1 Suppository RECTAL WEDNESDAY, WEDNESDAY AND WEDNESDAY Comments: NOT GIVEN IN HOSPITAL Lactase (Lactaid) (Unknown Strength) TABLET Unknown Dose ORAL As Directed as needed for LACTOSE INTOLERANCE Magnesium Hydroxide (Milk Of Magnesia) 400 MG/5 ML ORAL.SUSP 30 Milliliters ORAL Every 3 days Comments: DID NOT ADMINISTER IN HOSPITAL Esomeprazole (Nexium) 40 MG CAPSULE.DR 1 Capsule ORAL DAILY Qty = 30 Comments: Last Taken: 04/17/16 Time: 6:30 AM Sodium Bicarbonate (Sodium Bicarbonate) 650 MG TABLET 1 Tablet ORAL TWICE DAILY Comments: DID NOT ADMINISTER Alendronate Sodium (Fosamax) 70 MG TABLET 1 Tablet ORAL EVERY WEDNESDAY Instructions: in the morning, at least 30 minutes before the first food, beverage, or medication of the day Comments: NOT GIVEN IN HOSPITAL Calcitriol (Calcitriol) 0.25 MCG CAPSULE 1 Capsule ORAL WEDNESDAY, WEDNESDAY AND WEDNESDAY Psyllium Husk (Metamucil) (Unknown Strength) POWDER 1 Tablespoonful ORAL DAILY Venlafaxine HCl (Venlafaxine HCl) 75 MG TABLET 2 Tablet ORAL TWICE DAILY Nut.tx.imp.renal Fxn,Lac-Reduc (Nepro Carb Steady) (Unknown Strength) LIQUID Unknown Dose ORAL TWICE DAILY Ferrous Sulfate (Ferrous Sulfate) 325 MG (65 MG IRON) TABLET 1 Tablet ORAL DAILY Saliva Substitute Combo No.9 (Biotene) 473 ML MOUTHWASH 1 Tripp ORAL TWICE DAILY Emollient Combination No.92 (Lubriderm Daily Moisture) 177 ML LOTION 1 Application On the skin DAILY Bisacodyl (Dulcolax) 10 MG SUPP.RECT 1 Suppository RECTAL as needed for CONSTIPATION Copies To: Jd Douglas MD, MD Review Statement Documenting Attending: Misael VÁZQUEZ,Jd
--- NOTE | 2017-07-30 17:19 | Patient Discharge Instructions ---
Discharge Instructions General Discharge Information You were seen/treated for: syncope Special Instructions: please follow up with your deaf/hard of hearing specialist within one week of discharge for possible placement of LINQ placement please follow up with your PCP and outdoor emergency care technician upon discharge Diet Recommended Diet: mechanical soft Acute Coronary Syndrome Inclusion Criteria At DC or during hospital stay patient has or had the following: ACS DIAGNOSIS No Discharge Core Measures Meds if any: Prescribed or Continued at Discharge Meds if any: NOT Prescribed or Continued at Discharge Congestive Heart Failure Inclusion Criteria At DC or during hospital stay patient has or had the following: CHF DIAGNOSIS No Discharge Core Measures Meds if any: Prescribed or Continued at Discharge Meds if any: NOT Prescribed or Continued at Discharge Cerebrovascular accident Inclusion Criteria At DC or during hospital stay patient has or had the following: CVA/TIA Diagnosis No Discharge Core Measures Meds if any: Prescribed or Continued at Discharge Meds if any: NOT Prescribed or Continued at Discharge Venous thromboembolism Inclusion Criteria VTE Diagnosis No VTE Type NONE VTE Confirmed by (Test) NONE Discharge Core Measures - Per Current guidelines, there needs to be overlap - treatment for the first 5 days of Warfarin therapy. - If discharged on Warfarin prior to 5 days of - overlap therapy, the patient will need to be - assessed for post discharge needs including - *Post discharge parental anticoagulation - *Warfarin and/or parental anticoagulation education - *Follow up date to check INR post discharge At least 5 days overlap therapy as Inpatient No Meds if any: Prescribed or Continued at Discharge Note: Overlap Therapy is Warfarin and Anticoagulant Meds if any: NOT Prescribed or Continued at Discharge
--- NOTE | 2017-07-30 22:15 | PN- Att Addend ---
Attending Addendum Attending Brief Note 62-year-old white male resident of the [facility]. Apparently had the syncopal episode with a sudden fall comes to the ER in his usual state. Had some ulcerations, had fractured ribs patient was kept on telemetry to rule out any arrhythmias, so far is no arrhythmias patient also has some acute kidney insufficiency on chronic kidney insufficiency was given gentle hydration with some improvement of his BUN and creatinine. Also to be seen by cardiology will follow recommendations continue observation at least 24 more hours 24 TOTALS 07/30 0000 07/29 0000 Intake Total 1200 Output Total 450 Balance 750 Intake, IV 1000 Intake, Oral 200 Output, Urine 450 Patient 144 lb Weight Weight Reported by Patient Measurement Method Current Medications Sig/Rubens Start time Last Medication Dose Route Stop Time Status Admin Acetaminophen 1,000 MG Q6P PRN 07/29 2144 AC IV Atorvastatin Calcium 20 MG 1700 07/30 1700 AC 07/30 PO 1614 Bisacodyl 10 MG 07/30 09 AC 07/30 [place] 0948 Bisacodyl 10 MG DAILY NEEDED PRN 07/29 2199 AC [place] Calcitriol 0.25 MCG 07/30 0900 AC 07/30 PO 0950 Carbamazepine 400 MG BID 07/30 09 DC PO Carbamazepine 400 MG BID 07/29 2345 AC 07/30 PO 2105 Clonazepam 1 MG QAM 07/30 1000 AC 07/30 PO 08/06 0959 0951 Clonazepam 1 MG QAM 07/30 0900 DC PO 08/06 0859 Clonazepam 1.5 MG AT BEDTIME 07/29 2215 AC 07/30 PO 08/05 221 2104 Ferrous Sulfate 325 MG DAILY 07/30 09 AC 07/30 PO 0949 Gemfibrozil 600 MG BID 07/30 0900 AC 07/30 PO 2059 Glycerin 1 SPRAY BID 07/30 09 AC 07/30 PO 0950 Glycerin/Mineral Oil 1 DENISE DAILY 07/30 09 AC 07/30 TOP 0951 Heparin Sodium 5,000 UNIT Q8 07/29 2199 AC 07/30 (Porcine) SC 205 Lactated Ringer's 1,000 ML ONCE ONE 07/29 2130 DC 07/29 IV 07/30 0529 2302 Morphine Sulfate 2 MG Q6PRN PRN 07/29 2144 DC IV Omeprazole 40 MG DAILY AC 07/30 0700 AC PO Patient Medication 1 ED ONE ONE 07/30 1430 [place] Teaching ED 07/30 1431 Polyethylene Glycol 17 GM DAILY 07/30 09 AC 07/30 PO 0949 Psyllium Hydrophilic 1 PAC DAILY 07/30 09 AC 07/30 Mucilloid PO 0950 Sodium Chloride 1,000 ML Q10H 07/30 06 DC 07/30 IV 07/30 1559 0625 Venlafaxine HCl 150 MG BID 07/30 899 AC 07/30 PO 2100 Ziprasidone 80 MG QPM 07/30 2099 AC 07/30 PO 2057 Laboratory Tests 07/30/17404: Troponin I < 0.01 07/30/17404: Anion Gap 13, Estimated GFR 32 L, BUN/Creatinine Ratio 19.0, CBC w Diff NO MAN DIFF REQ, RBC 3.11 L, MCV 94.3 H, MCH 32.6 H, MCHC 34.5, RDW 13.0, MPV 8.3, Gran % 70.8, Lymphocytes % 21.3, Monocytes % 7.7, Eosinophils % 0.1, Basophils % 0.1, Absolute Granulocytes 3.8, Absolute Lymphocytes 1.1 L, Absolute Monocytes 0.4, Absolute Eosinophils 0, Absolute Basophils 0 07/29/172257: Troponin I < 0.01 07/29/172049: Urine Color YEL, Urine Clarity CLEAR, Urine pH 7.0, Ur Specific Flasher 1.010, Urine Protein NEG, Urine Ketones NEG, Urine Nitrite NEG, Urine Bilirubin NEG, Urine Urobilinogen 0.2, Ur Leukocyte Esterase NEG, Ur Microscopic EXAM NOT REQUIRED, Urine Hemoglobin NEG, Urine Glucose NEG 07/29/17 1620: Anion Gap 12, Estimated GFR 28 L, BUN/Creatinine Ratio 21.7, Glucose 98, Calcium 9.5, Iron 89, TIBC 364, Ferritin 280.0, Total Bilirubin 0.4, AST 28, ALT 30, Alkaline Phosphatase 118, Troponin I < 0.01, Total Protein 7.1, Albumin 4.2, Globulin 2.9, Albumin/Globulin Ratio 1.4, Vitamin B12 621, Folate > 20.0 H, Prolactin 14.8, CBC w Diff NO MAN DIFF REQ, RBC 2.96 L, MCV 94.3 H, MCH 33.2 H, MCHC 35.2, RDW 12.6, MPV 8.1, Gran % 66.0, Lymphocytes % 25.7, Monocytes % 7.8, Eosinophils % 0.1, Basophils % 0.4, Absolute Granulocytes 2.3, Absolute Lymphocytes 0.9 L, Absolute Monocytes 0.3, Absolute Eosinophils 0, Absolute Basophils 0 Vital Signs Date Time Temp Pulse Resp B/P B/P Pulse O2 O2 Flow FiO2 Mean Ox Delivery Rate 07/30 1400 98.7 71 20 130/74 99 Room Air 07/30 0631 98.7 65 20 128/76 100 Room Air
[2017-07-30 23:18] VITALS: BP 140/80
[2017-07-31 06:45] VITALS: BP 120/70
[2017-07-31 08:35] LABS: ABSOLUTE BASOPHIL COUNT 0 /CUMM (0.0-0.2); ABSOLUTE EOSINOPHIL COUNT 0 /CUMM (0.0-0.7); ABSOLUTE GRANULOCYTE CT 2.1 /CUMM (1.4-6.5); ABSOLUTE MONOCYTE COUNT 0.2 /CUMM (0.10-0.60); BASOPHIL % 0.1 % (0.0-2.0); EOSINOPHIL % 0 % (0-5); GRANULOCYTE % 62.4 % (42.2-75.2); MEAN CORPUSCULAR HGB 33.2 PG (27.0-31.0); MEAN CORPUSCULAR VOLUME 94.8 FL (80.0-94.0); MEAN PLATELET VOLUME 8.4 FL (7.4-10.4); PLATELET COUNT 181 /CUMM (130-400); RBC DISTRIBUTION WIDTH 12.9 % (11.5-14.5); RED BLOOD CELL CT 2.85 /CUMM (4.70-6.10); WHITE BLOOD CELL COUNT 3.3 /CUMM (4.8-10.8)
--- NOTE | 2017-07-31 09:13 | PN- Housestaff ---
Subjective Follow-up For: 1. Syncope 2. Acute mild traumatic brain injury 3. Acute kidney injury 4. Macrocytic anemia 5. Leukopenia 6. Acute nondisplaced fractures of the left seventh and eighth ribs Tele-Events Since Last Visit: Sinus rhythm with first-degree AV block Heart rate 65-81 Subjective: Patient resting comfortably, denies any chest pain, palpitations, shortness of breath, abdominal pain, headaches or lightheadedness/dizziness. Review of Systems Constitutional: Reports: no symptoms. Objective Last 24 Hrs of Vital Signs/I&O Vital Signs Date Time Temp Pulse Resp B/P B/P Pulse O2 O2 Flow FiO2 Mean Ox Delivery Rate 07/31 1504 99.4 74 20 130/60 100 Room Air 07/31 0645 98.7 70 18 120/70 100 Room Air 07/30 2318 98.9 82 18 140/80 100 Room Air Intake & Output 07/31 1600 07/31 0800 07/31 0000 Intake Total 320 350 Output Total 350 Balance -30 350 Intake, IV 20 Intake, Oral 300 350 Output, Urine 350 Patient 140 lb 140 lb Weight Weight Bed scale Measurement Method Physical Exam General Appearance: Alert, Cooperative, No Acute Distress Skin: No Rashes, No Breakdown Cardiovascular: Regular Rate, Normal S1, Normal S2 Lungs: Clear to Auscultation, Normal Air Movement Abdomen: Normal Bowel Sounds, Soft, No Tenderness Extremities: No Clubbing, No Cyanosis, No Edema Current Medications: Current Medications Sig/Rubens Start time Last Medication Dose Route Stop Time Status Admin Acetaminophen 1,000 MG Q6P PRN 07/29 2145 AC IV Atorvastatin Calcium 20 MG 1700 07/30 1700 AC 07/30 PO 1614 Bisacodyl 10 MG 07/30 0900 AC 07/30 VA 0948 Bisacodyl 10 MG DAILY NEEDED PRN 07/29 2200 AC [place] Calcitriol 0.25 MCG 07/30 09 AC 07/30 PO 0950 Carbamazepine 400 MG BID 07/29 2345 AC 07/31 PO 0913 Clonazepam 1 MG QAM 07/30 1000 AC 07/31 PO 08/06 0959 0916 Clonazepam 1.5 MG AT BEDTIME 07/29 2214 AC 07/30 PO 08/05 Ferrous Sulfate 325 MG DAILY 07/30 09 AC 07/31 PO 0911 Gemfibrozil 600 MG BID 07/30 09 AC 07/31 PO 0911 Glycerin 1 SPRAY BID 07/30 09 AC 07/31 PO 0916 Glycerin/Mineral Oil 1 DENISE DAILY 07/30 899 AC 07/31 TOP 0914 Heparin Sodium 5,000 UNIT Q8 07/290 AC 07/31 (Porcine) SC 1328 Omeprazole 40 MG DAILY AC 07/30 07 AC 07/31 PO 0553 Polyethylene Glycol 17 GM DAILY 07/30 09 AC 07/31 PO 0912 Psyllium Hydrophilic 1 PAC DAILY 07/30 09 AC 07/31 Mucilloid PO 0913 Sodium Chloride 1,000 ML Q10H 07/30 06 DC 07/30 IV 07/30 1559 0625 Venlafaxine HCl 150 MG BID 07/30 899 AC 07/31 PO 0912 Ziprasidone 80 MG QPM 07/30 2100 AC 07/30 PO 2057 Last 24 Hrs of Lab/Luis Results Last 24 Hrs of Labs/Mics: Laboratory Tests 07/31/17 07: Anion Gap 15, Estimated GFR 32 L, BUN/Creatinine Ratio 15.2, CBC w Diff NO MAN DIFF REQ, RBC 2.85 L, MCV 94.8 H, MCH 33.2 H, MCHC 35.0, RDW 12.9, MPV 8.4, Gran % 62.4, Lymphocytes % 30.2, Monocytes % 7.3, Eosinophils % 0, Basophils % 0.1, Absolute Granulocytes 2.1, Absolute Lymphocytes 1.0 L, Absolute Monocytes 0.2, Absolute Eosinophils 0, Absolute Basophils 0 Assessment/Plan Assessment: Mr. Waldrop is a 62-year-old male with past medical history of cognitive impairment, hypertension, hyperlipidemia, chronic kidney disease, diabetes mellitus, osteoporosis who presents after a fall from [facility]. He will be placed in observation on telemetry and treated for the following problems: 1. Syncope 2. Acute mild traumatic brain injury 3. Acute kidney injury 4. Macrocytic anemia 5. Leukopenia 6. Acute nondisplaced fractures of the left seventh and eighth ribs #Syncope: Patient presents after a fall during which he seemed he lost consciousness and concussed his head. It is difficult to assess the severity of the concussion given his history of mental retardation. However, he is opening his eyes spontaneously and obeying commands. Imaging does not reveal any acute findings besides rib fractures. Given the history of restarting amlodipine and his acute kidney injury, most likely this was caused by a hypotensive episode. Other possible etiologies include heart arrhythmia and seizure. Patient did have a seizure more than 30 years ago but clinical presentation argues against this. - Continue to Hold hypertensive medications - Echocardiogram pending. - Cardiology evaluation; appreciate recommendations. Patient might need a linq monitor. - Prolactin level - WNL - Orthostatic vital signs - negative #Acute kidney injury: Likely prerenal azotemia in setting of hypotension. Improved with fluids. Currently at baseline. -Avoid nephrotoxins #Macrocytic anemia: Patient tends to be anemic previously but this is lower than usual for him. Patient did have some bleeding from the fall but is not currently bleeding. -Iron studies, B12, folate - WNL -Monitor CBC -Monitor for bleeding #Leukopenia: Likely related to the stress of falling and fracturing his ribs. Patient does not seem to be infected at this time with negative urinalysis, CT chest. -If febrile, consider starting antibiotics #Chronic medical problems: -Continue other home medications DVT prophylaxis with heparin Ground food, nectar thick liquids DNR/DNI Problem List: 1. Syncope 2. Rib fracture 3. Rdxge-at-slcdcyo kidney injury Pain Ratin Pain Location: NA Pain Goal: Remain pain free Pain Plan: Pain Pathway Tomorrow's Labs & Rationales: BEP(Hypernatremia)
--- NOTE | 2017-07-31 12:39 | PN- Att Addend ---
Attending Addendum Attending Brief Note Mr. Waldrop was interviewed (limited secondary to patient mental status) and examined. His EMR was reviewed. He denies lightheadedness and palpitations. He is afebrile. Heart rate is stable in the 70-80 range. Blood pressure is 120 rhythm rate. He is in no acute distress. Chest and heart exams are benign. WBC is 3300 which is a chronic finding and H&H shows stable anemia. Sodium is 148 which has been a chronic and intermittent finding. We are continuing to follow after and observed syncopal episode. Workup to date has been negative. Cardiology input is appreciated and we will continue to observe.
[2017-07-31 15:04] VITALS: BP 130/60
[2017-07-31 21:36] VITALS: BP 148/78
[2017-08-01 07:01] VITALS: BP 148/75
[2017-08-01 08:26] LABS: ABSOLUTE BASOPHIL COUNT 0 /CUMM (0.0-0.2); ABSOLUTE EOSINOPHIL COUNT 0 /CUMM (0.0-0.7); ABSOLUTE GRANULOCYTE CT 2.9 /CUMM (1.4-6.5); ABSOLUTE LYMPH COUNT 1.2 /CUMM (1.2-3.4); ABSOLUTE MONOCYTE COUNT 0.2 /CUMM (0.10-0.60); BASOPHIL % 0.4 % (0.0-2.0); EOSINOPHIL % 0 % (0-5); GRANULOCYTE % 66.8 % (42.2-75.2); MEAN CORPUSCULAR HGB 32.7 PG (27.0-31.0); MEAN CORPUSCULAR HGB CONC 34.3 G/DL (33.0-37.0); MEAN CORPUSCULAR VOLUME 95.3 FL (80.0-94.0); MEAN PLATELET VOLUME 8.6 FL (7.4-10.4); PLATELET COUNT 166 /CUMM (130-400); RBC DISTRIBUTION WIDTH 13.1 % (11.5-14.5); RED BLOOD CELL CT 2.93 /CUMM (4.70-6.10); WHITE BLOOD CELL COUNT 4.4 /CUMM (4.8-10.8)
--- NOTE | 2017-08-01 08:37 | PN- Housestaff ---
Benja Fulton 08/01/17 0836: Subjective Follow-up For: 1. Syncope 2. Acute mild traumatic brain injury 3. Acute kidney injury 4. Macrocytic anemia 5. Leukopenia 6. Acute nondisplaced fractures of the left seventh and eighth ribs Subjective: Seen and examined patient, complains of stuffy nose. Denies any fever, chills, shortness of breath. Review of Systems Constitutional: Denies: chills, diaphoresis, fever, malaise, weakness, unexplained weight loss. Cardiovascular: Denies: chest pain, edema, orthopena, palpitations, peripheral edema, syncope. Respiratory: Denies: cough, hemoptysis, orthopnea, short of breath, sputum production, stridor, wheezing. Objective Last 24 Hrs of Vital Signs/I&O Vital Signs Date Time Temp Pulse Resp B/P B/P Pulse O2 O2 Flow FiO2 Mean Ox Delivery Rate 08/01 0701 98.7 74 20 148/75 100 07/31 2136 98.0 84 18 148/78 100 07/31 1504 99.4 74 20 130/60 100 Room Air Intake & Output 08/01 1600 08/01 0800 08/01 0000 Intake Total 400 80 Output Total Balance 400 80 Intake, Oral 400 80 Patient 141 lb Weight Weight Bed scale Measurement Method Physical Exam General Appearance: Alert, Cooperative, No Acute Distress Cardiovascular: Normal S1, Normal S2 Lungs: Clear to Auscultation, Normal Air Movement Abdomen: Normal Bowel Sounds, Soft, No Tenderness Current Medications: Current Medications Sig/Rubens Start time Last Medication Dose Route Stop Time Status Admin Acetaminophen 1,000 MG Q6P PRN 07/295 AC IV Atorvastatin Calcium 20 MG 1700 07/30 1700 AC 07/31 PO 1621 Bisacodyl 10 MG 07/30 09 AC 07/30 NH 0948 Bisacodyl 10 MG DAILY NEEDED PRN 07/29 2199 AC NH Calcitriol 0.25 MCG 07/30 09 AC 07/30 PO 0950 Carbamazepine 400 MG BID 07/29 2345 AC 08/01 PO 0819 Clonazepam 1 MG QAM 07/30 1000 AC 08/01 PO 08/06 0959 0832 Clonazepam 1.5 MG AT BEDTIME 07/29 2214 AC 07/31 PO 08/05 Diphenhydramine HCl 50 MG ONCE ONE 07/31 2044 DC 07/31 PO 07/31 Diphenhydramine HCl 50 MG .STK-MED ONE 07/31 2042 DC PO 08/01 2043 Ferrous Sulfate 325 MG DAILY 07/30 899 AC 08/01 PO 0818 Gemfibrozil 600 MG BID 07/30 09 AC 08/01 PO 0818 Glycerin 1 SPRAY BID 07/30 09 AC 08/01 PO 0818 Glycerin/Mineral Oil 1 DENISE DAILY 07/30 09 AC 08/01 TOP 0818 Heparin Sodium 5,000 UNIT Q8 07/290 AC 08/01 (Porcine) SC 0558 Omeprazole 40 MG DAILY AC 07/30 07 AC 08/01 PO 0559 Polyethylene Glycol 17 GM DAILY 07/30 09 AC 08/01 PO 0818 Psyllium Hydrophilic 1 PAC DAILY 07/30 899 AC 08/01 Mucilloid PO 0818 Sodium Chloride 2 SPRAY Q4P PRN 08/01 1245 UNVr SHAKILA Venlafaxine HCl 150 MG BID 07/30 09 AC 08/01 PO 0818 Ziprasidone 80 MG QPM 07/30 2100 AC 07/31 PO 2032 Last 24 Hrs of Lab/Luis Results Last 24 Hrs of Labs/Mics: Laboratory Tests 08/01/17 07: Anion Gap 13, Estimated GFR 34 L, BUN/Creatinine Ratio 13.5, CBC w Diff NO MAN DIFF REQ, RBC 2.93 L, MCV 95.3 H, MCH 32.7 H, MCHC 34.3, RDW 13.1, MPV 8.6, Gran % 66.8, Lymphocytes % 27.6, Monocytes % 5.2, Eosinophils % 0, Basophils % 0.4, Absolute Granulocytes 2.9, Absolute Lymphocytes 1.2, Absolute Monocytes 0.2 , Absolute Eosinophils 0, Absolute Basophils 0 Assessment/Plan Assessment: 62-year-old gentleman with past medical history of cognitive impairment, hypertension, hyperlipidemia, chronic kidney disease, diabetes mellitus, osteoporosis who presents after a fall from [facility]. He will be placed in observation on telemetry and treated for the following problems: 1. Syncope 2. Acute mild traumatic brain injury 3. Acute kidney injury 4. Macrocytic anemia 5. Leukopenia 6. Acute nondisplaced fractures of the left seventh and eighth ribs #Syncope: - Continue to Hold hypertensive medications - Echocardiogram: Normal global left ventricular size, wall thickness, systolic function with no obvious regional wall motion abnormalities. Normal left ventricular ejection fraction estimated at 55-60%. - Cardiology evaluation; appreciate recommendations. Patient might need a linq monitor to be placed as outpatient. - Prolactin level - WNL - Orthostatic vital signs - negative #Acute kidney injury: Likely prerenal azotemia in setting of hypotension. Improved with fluids. Currently at baseline. -Avoid nephrotoxins #Macrocytic anemia: Patient tends to be anemic previously but this is lower than usual for him. Patient did have some bleeding from the fall but is not currently bleeding. -Iron studies, B12, folate - WNL -Monitor CBC -Monitor for bleeding #Leukopenia: Likely related to the stress of falling and fracturing his ribs. Patient does not seem to be infected at this time with negative urinalysis, CT chest. -If febrile, consider starting antibiotics #Chronic medical problems: -Continue other home medications DVT prophylaxis with heparin Ground food, nectar thick liquids DNR/DNI Problem List: 1. Syncope Pain Ratin Pain Location: na Pain Goal: Pain 4 or less Pain Plan[facility] Labs & Rationales: none required Neil Samuel MD 08/01/17 1329: Attending MD Review Statement Attending Statement Attending MD Statement: examined this patient, discuss w/resident/PA/ASSORTER LAUNDRY, agreed w/resident/PA/ASSORTER LAUNDRY, discussed with family, reviewed EMR data (avail), reviewed images, amended to note Attending Assessment/Plan: Mr. Palma vicente was interviewed and examined in the presence of his sister and [id number]. His EMR was reviewed. He has no complaints. He has remained afebrile. Pulse and respiratory rates have been stable and satisfactory. Systolic blood pressure has been 161077. He has had no arrhythmias on telemetry. He is in no acute distress. Pulmonary exam is benign. Cardiac exam reveals regular rate and rhythm. His abdomen is soft and nontender. Laboratory determinations were reviewed and are essentially unchanged. His echocardiogram shows no notable abnormalities. At this point Mr. Palma vicente is stable for discharge. His CMR has been reviewed and signed.
--- NOTE | 2017-08-01 09:19 | ECHOCARDIOGRAM REPORT ---
BRUNO GARCIA Age: 62 : 1955 Gender: M Exam Date: 07/31/2017 08:36 Exam Location: 1 [address] Ht (in): 67 Wt (lb): 142 BSA: 1.75 BP: 130 / 74 Ordering Physician: Emerald Rajput MD Referring Physician: Emerald Rajput MD Technologist: Stacy Camacho [facility] Room Number: 174-1 Indications: Rhythm: Sinus Technical Quality: poor FINDINGS Left Ventricle Normal global left ventricular size, wall thickness, systolic function with no obvious regional wall motion abnormalities. Normal left ventricular ejection fraction estimated at 55-60%. Right Ventricle Normal right ventricular size and function. Right Atrium Normal right atrial size. Left Atrium Normal left atrial size. Mitral Valve Mitral valve not well visualized, grossly normal. Trace to mild mitral regurgitation. Aortic Valve Aortic valve not well visualized, grossly normal. Tricuspid Valve Tricuspid valve not well visualized, grossly normal. Trace to mild tricuspid regurgitation. Pulmonic Valve Pulmonic valve not well visualized, grossly normal. Pericardium No pericardial effusion. Great Vessels Normal size aortic root. CONCLUSIONS Poor Echo window. Normal overall left and right ventricular systolic function. No significant valvular abnormalitiees noted. Daniel Pickard M.D. (Electronically Signed) Final Date: 01 Aug 2017 09:19 MEASUREMENTS (Male / Female) Normal Values 2D ECHO LV Diastolic Diameter PLAX 3.1 cm 4.2 - 5.9 / 3.9 - 5.3 cm LV Systolic Diameter PLAX 2.2 cm 2.1 - 4.0 cm LV Fractional Shortening PLAX 29.0 % 25 - 46 % LV Ejection Fraction 2D Teich 57.3 % IVS Diastolic Thickness 1.1 cm LVPW Diastolic Thickness 1.0 cm LV Relative Wall Thickness 0.7 Aortic Root Diameter 2.9 cm LA Systolic Diameter LX 1.8 cm 3.0 - 4.0 / 2.7 - 3.8 cm DOPPLER AV Peak Velocity 126.0 cm/s AV Peak Gradient 6.4 mmHg LVOT Peak Velocity 94.8 cm/s LVOT Peak Gradient 3.6 mmHg Mitral E Point Velocity 60.7 cm/s Mitral A Point Velocity 79.0 cm/s Mitral E to A Ratio 0.8 MV Deceleration Time 243.0 ms TV Peak Velocity 221.3 cm/s PV Peak Velocity 99.2 cm/s PV Peak Gradient 3.9 mmHg LV E' Lateral Velocity 8.0 cm/s Mitral E to LV E' Lateral Ratio 7.6 LV E' Septal Velocity 6.7 cm/s Mitral E to LV E' Septal Ratio 9.0
--- NOTE | 2017-08-01 11:22 | PN- Cardiology ---
Subjective Subjective: * Patient is non-communicative with no issues reported. * No evidence of bradycardia, heart block or other dysrhythmias that may lead to syncope * Hemodynamically stable in a sinus rhythm * creatinine stable at 2.0 Objective Vital Signs and I&Os Vital Signs Date Time Temp Pulse Resp B/P B/P Pulse O2 O2 Flow FiO2 Mean Ox Delivery Rate 08/01 0701 98.7 74 20 148/75 100 07/31 2136 98.0 84 18 148/78 100 07/31 1504 99.4 74 20 130/60 100 Room Air Intake & Output 08/01 0808/01 0000 07/31 0000 Intake Total 400 80 320 350 Output Total 350 Balance 400 80 -30 350 Intake, IV 20 Intake, Oral 400 80 300 350 Output, Urine 350 Patient 141 lb 140 lb 140 lb Weight Weight Bed scale Bed scale Measurement Method Physical Exam: General: WD/WN male in NAD; awake/ nonverbal Neck: no JVD Heart: RRR Lungs: clear Extremities: no edema Assessment/Plan Assessment/Plan * Blood pressue is for the most part well controlled on his current drug regimen. No changes recommended at this time. Minimal and occasional hypertensive excursions into the 140 range are acceptable to avoid issues with fainting or a pre-renal state. * No arrhythmias noted. Of note, the patient had a recent nuclear stress test which demonstrated no evidence of underlying ischemia and an overall preserved LV systolic function. His echocardiogram was also essentially normal. * The patient underwent an electroencephalogram in 2015 with no evidence of epileptiform waves. * Stable for DC from a cardiac standpoint with follow up in the office. Continue telemetry? No
[2017-08-01 15:12] VITALS: BP 155/76
== END 2017-08-01 16:20 ==
LOC: ERH 15:51 → 1NO 18:58 → ERHI 18:58 → ENRESERV 20:09 → ENTRNSPT 21:17 → 1NO 21:41 → CMPTRNSPT 21:51 → ENPENDDIS 08-01 13:25 → 1NO 08-01 16:20
PROVIDERS: Internal Medicine; Physician Assistant; Preventive Medicine Public Health & General Preventive Medicine; Student in an Organized Health Care Education/Training Program
DX: R55 Syncope and collapse (principal); W19.XXXA Unspecified fall, initial encounter; Y92.199 Unspecified place in other specified residential institution as the place of occurrence of the external cause; Y93.9 Activity, unspecified; G31.84 Mild cognitive impairment of uncertain or unknown etiology; I12.9 Hypertensive chronic kidney disease with stage 1 through stage 4 chronic kidney disease, or unspecified chronic kidney disease; N18.4 Chronic kidney disease, stage 4 (severe); E11.22 Type 2 diabetes mellitus with diabetic chronic kidney disease; N17.9 Acute kidney failure, unspecified; E78.5 Hyperlipidemia, unspecified; Z87.440 Personal history of urinary (tract) infections; F39 Unspecified mood [affective] disorder; D53.9 Nutritional anemia, unspecified; D72.819 Decreased white blood cell count, unspecified; S22.42XA Multiple fractures of ribs, left side, initial encounter for closed fracture; S06.9X1A Unspecified intracranial injury with loss of consciousness of 30 minutes or less, initial encounter
CPT/HCPCS: 36592; 74176; 81003; 82436; 93005; 93010; 93306; 96361; 96372; 96374; G0378; J0131; J1644; J7120